=== PATIENT | female | born 1960 | race Hispanic/Latino ===

== ENCOUNTER 2016-07-20 06:10 | Outpatient (CLI) | payer BC ==
--- NOTE | 2016-07-20 08:53 | Mammography Report ---
BILATERAL MAMMOGRAM: FINDINGS: The breast tissue is heterogeneously dense, which could obscure detection of small masses (approximately 50%-75% glandular). No mass, distortion, suspicious calcification, or skin change is seen. No interval changes compared to prior study in December 2012. CAD was utilized. IMPRESSION: Negative mammogram. There is no mammographic evidence of malignancy. RECOMMENDATION: Follow-up per ACS guidelines. BI-RADS CATEGORY: 1 = Negative ACR BI-RADS MAMMOGRAPHIC CODES: 0 = Needs additional imaging evaluation; 1 = Negative; 2 = Benign; 3 = Probably benign; 4 = Suspicious; 5 = Malignant; 6 = Known biopsy-proven malignancy COMMENT: 1. Dense breast tissue, i.e., adenosis, fibrocystic changes, etc., may obscure an underlying neoplasm. 2. Approximately 10% of cancers are not detected with mammography. 3. A negative mammography report should not delay biopsy if a clinically suspicious mass is present. COMMENT: Patient follow-up letters are generated in [employer].
== END 2016-07-20 06:11 | disposition home or self-care (01) ==
LOC: MAMMO 06:10
PROVIDERS: ATTEND Family Medicine
DX: Z12.31 Encounter for screening mammogram for malignant neoplasm of breast (principal)
CPT/HCPCS: 77067; G0202

== ENCOUNTER 2017-10-26 06:12 | Emergency (ER) | payer OTHER, BC ==
[2017-10-26] MEDS ORDERED: MOTRIN ONE (06:26)
[2017-10-26] MEDS: MOTRIN PO ONE (06:35)
[2017-10-26 06:36] VITALS: BP 166/77
--- NOTE | 2017-10-26 07:12 | XRay Report ---
FINAL REPORT EXAM: XR KNEE 3V LT HISTORY: pain patellar area, swollen, fall, twisting injury COMPARISONS: None. FINDINGS: Three portable views left knee Inferior patellar pole fracture is distracted approximately 2-3 millimeters. Associated lipohemarthrosis. The distal femur, proximal tibia and fibula appear intact. IMPRESSION: Minimally distracted mid to lower patellar fracture with associated joint effusion/likely lipohemarthrosis.
--- NOTE | 2017-10-26 07:40 | Emergency Department Report ---
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 She reports that she slipped with her legs going forward out from under her, and that her left knee twisted with immediate pain, primarily anteriorly around the area of the patella. She has relatively little pain on the sides of the knee, but she is unable to stand or walk. Discomfort is significant, being in 7-8 out of 10, localized to the knee, worse with any attempted movement, reports that she is unable to fully extend or flex the knee , with significant pain on any attempt at movement. There is no radiation of discomfort. She has no loss of use, no weakness, no numbness in the left leg distal to the area of injury, no hip pain. She has a minor contusion on her right alcantara, but this is painless, and she could bear weight on her right leg well, but she has no other injury, she did not strike her head, there was no loss of consciousness, and she is in good general health otherwise. Severity scale (0 -10): 3 - Related Data Previous Rx's Medication Instructions Recorded Last Taken Type HYDROcodone/APAP 7.5-325 [[place] 1 each PO Q6HR PRN #30 tablet 10/26/17 Unknown Rx 7.5/325] Allergies Allergy/AdvReac Type Severity Reaction Status Date / Time No Known Allergies Allergy Verified 10/26/17 06:30 ED Review of Systems ROS: Stated complaint: FALL Other details as noted in HPI Comment: All other systems reviewed and negative Constitutional: no symptoms reported ENT: denies: ear pain, throat pain Respiratory: denies: cough, shortness of breath, wheezing Cardiovascular: denies: chest pain, palpitations Endocrine: no symptoms reported Gastrointestinal: denies: abdominal pain, nausea, diarrhea Musculoskeletal: as per HPI, joint swelling (left knee) Neurological: denies: headache, weakness, paresthesias Psychiatric: denies: anxiety, depression ED Past Medical Hx - Past Medical History Previous Medical History?: Yes Hx Diabetes: Yes Additional medical history: High cholesterol, Mitral valve prolapse - Surgical History Past Surgical History?: Yes Hx Cholecystectomy: Yes Additional Surgical History: Rt heel - Social History Smoking Status: Never Smoker Substance Use Type: Prescribed - Medications Home Medications: Home Medications Medication Instructions Recorded Confirmed Last Taken Type HYDROcodone/APAP 7.5-325 [[place] 1 each PO Q6HR PRN #30 tablet 10/26/17 Unknown Rx 7.5/325] ED Physical Exam - General Limitations: No Limitations General appearance: alert, in distress (moderate acute discomfort from area of injury of left knee) - Head Head exam: Present: atraumatic, normocephalic - Eye Eye exam: Present: PERRL, EOMI - ENT ENT exam: Present: mucous membranes moist - Neck Neck exam: Present: normal inspection, full ROM. Absent: tenderness - Respiratory Respiratory exam: Present: normal lung sounds bilaterally - Cardiovascular Cardiovascular Exam: Present: regular rate - GI/Abdominal GI/Abdominal exam: Present: soft, normal bowel sounds. Absent: tenderness - Rectal Rectal exam: Present: deferred - Extremities Exam Extremities exam: Present: tenderness (anterior, overlying patella area and a little inferiorly, no tenderness to femur or leg), joint swelling (left knee, anteriorly). Absent: calf tenderness - Back Exam Back exam: Present: normal inspection. Absent: tenderness - Neurological Exam Neurological exam: Present: alert, oriented X3, CN II-XII intact. Absent: motor sensory deficit - Psychiatric Psychiatric exam: Present: normal affect, normal mood - Skin Skin exam: Present: warm, dry, intact, other (minimal contusion distal right pretibial area, no abrasion,) ED Course Vital Signs 10/26/17 10/26/17 06:18 06:35 Temperature 36.4 C L Pulse Rate 94 H Respiratory 18 16 Rate Blood Pressure 166/77 O2 Sat by Pulse 100 Oximetry ED Medical Decision Making - Radiology Data Radiology results: report reviewed Patient has minimally displaced, 3 mm, fracture of distal pole of left patella, with no other injury of present. - Medical Decision Making Patient has a patella fracture, primarily as a distracting force, it is minimally displaced, she is stable for discharge home, but will be unable to work as she is not able to bear weight without discomfort. She will be given 1 week work release, with recognition for follow-up with orthopedist, placed in knee immobilizer, provided crutches, and will be given hydrocodone for pain with elevation instructions and icing. - Differential Diagnosis knee fracture, patella fracture, collateral ligament injury, Critical care attestation.: If time is entered above; I have spent that time in minutes in the direct care of this critically ill patient, excluding procedure time. ED Disposition Clinical Impression: Left patella fracture Qualifiers: Encounter type: initial encounter Fracture type: closed Fracture morphology: transverse Fracture alignment: displaced Qualified Code(s): S82.032A - Displaced transverse fracture of left patella, initial encounter for closed fracture Disposition: TO HOME OR SELFCARE Is pt being admited?: No Does the pt Need Aspirin: No Condition: Stable Instructions: Patellar Fracture (ED), Knee Immobilizer (ED), Crutch Instructions (ED) Prescriptions: HYDROcodone/APAP 7.5-325 [[place] 7.5/325] 1 each PO Q6HR PRN #30 tablet PRN Reason: Pain Referrals: SARAH AVELAR MD [Primary Care Provider] - 3-5 Days COSMO WHITFIELD MD [Staff Physician] - 3-5 Days Forms: Work/School Release Form(ED) Time of Disposition: 07:43
[2017-10-26] MEDS: NORCO 10/325 PO ONE (08:00)
== END 2017-10-26 08:30 | disposition home or self-care (01) ==
LOC: ED 06:12
DX: S82.032A Displaced transverse fracture of left patella, initial encounter for closed fracture (principal); E11.9 Type 2 diabetes mellitus without complications; E78.00 Pure hypercholesterolemia, unspecified; X50.9XXA Other and unspecified overexertion or strenuous movements or postures, initial encounter; Y93.89 Activity, other specified; Y92.89 Other specified places as the place of occurrence of the external cause; Y99.8 Other external cause status

== ENCOUNTER 2018-05-03 01:20 | Outpatient (CLI) | payer BC, OTHER ==
[2018-05-03 08:00] LABS: Basophils # (Auto) 0.1 K/mm3 (0.0-0.1); Basophils % (Auto) 0.5 % (0.0-1.8); Eosinophils # (Auto) 0.2 K/mm3 (0.0-0.4); Eosinophils % (Auto) 1.3 % (0.0-4.3); Hematocrit 37.1 % (30.3-42.9); Hemoglobin 12.1 gm/dl (10.1-14.3); Lymphocytes # (Auto) 2.9 K/mm3 (1.2-5.4); Lymphocytes % (Auto) 24.8 % (13.4-35.0); Mean Corpuscular HGB Conc 33 % (30-34); Mean Corpuscular Volume 81 fl (79-97); Monocytes # (Auto) 0.7 K/mm3 (0.0-0.8); Monocytes % (Auto) 6.4 % (0.0-7.3); Platelet Count 444 K/mm3 (140-440); Red Blood Count 4.56 M/mm3 (3.65-5.03); Red Cell Distribution Width 15.4 % (13.2-15.2)
[2018-05-03 08:14] LABS: Bilirubin,Urine NEG (Negative); Blood,Urine SM (Negative); Color,Urine Straw (Yellow); Protein,Urine <15 mg/dL mg/dL (Negative); Urobilinogen,Urine < 2.0 mg/dL (<2.0)
[2018-05-03 09:07] LABS: Alanine Aminotransferase 46 units/L (7-56); Albumin 4.4 g/dL (3.9-5); BUN/Creatinine Ratio 23; Blood Urea Nitrogen 14 mg/dL (7-17); Calcium 9.5 mg/dL (8.4-10.2); Chol/HDL Ratio 3.54 %; HDL Cholesterol 44 mg/dL (40-59); Hemolysis Index 0; LDL Cholesterol,Direct 110 mg/dL (50-130)
--- NOTE | 2018-05-03 15:33 | Mammography Report ---
BILATERAL DIGITAL SCREENING MAMMOGRAM with CAD: 05/03/18 01:20:00 CLINICAL: Routine screening. COMPARISON:07/20/16 FINDINGS: The breasts are heterogeneously dense, which may obscure small masses. No mass, architectural distortion or suspicious calcifications. IMPRESSION: No mammographic evidence of malignancy. BI-RADS CATEGORY: 1 - - Negative RECOMMENDATION: Routine mammographic screening in one year. COMMENT: Patient follow-up letters are generated by our [employer] application.
== END 2018-05-03 01:21 | disposition home or self-care (01) ==
LOC: LAB 01:20
PROVIDERS: ATTEND Family Medicine
DX: Z12.31 Encounter for screening mammogram for malignant neoplasm of breast (principal); I10 Essential (primary) hypertension; E11.9 Type 2 diabetes mellitus without complications; Z79.899 Other long term (current) drug therapy; Z79.84 Long term (current) use of oral hypoglycemic drugs; Z90.49 Acquired absence of other specified parts of digestive tract; Z90.710 Acquired absence of both cervix and uterus
CPT/HCPCS: 36415; 77067; 80053; 80061; 81001; 82043; 84443; 85025

== ENCOUNTER 2018-11-08 07:44 | Outpatient (CLI) | payer BC ==
[2018-11-08 08:13] LABS: Alanine Aminotransferase 23 units/L (7-56); Albumin 4.2 g/dL (3.9-5); BUN/Creatinine Ratio 29; Blood Urea Nitrogen 20 mg/dL (7-17); Calcium 9.1 mg/dL (8.4-10.2); Chol/HDL Ratio 3.77 %; HDL Cholesterol 49 mg/dL (40-59); Hemolysis Index 0; LDL Cholesterol,Direct 132 mg/dL (50-130)
== END 2018-11-08 07:45 | disposition home or self-care (01) ==
LOC: LAB 07:44
PROVIDERS: ATTEND Family Medicine
DX: E11.9 Type 2 diabetes mellitus without complications (principal); I10 Essential (primary) hypertension; R53.83 Other fatigue; Z79.899 Other long term (current) drug therapy; Z90.710 Acquired absence of both cervix and uterus
CPT/HCPCS: 36415; 80053; 80061; 83036

== ENCOUNTER 2019-12-12 07:10 | Outpatient (CLI) | payer BC ==
[2019-12-12 08:07] LABS: Basophils # (Auto) 0.1 K/mm3 (0.0-0.1); Eosinophils # (Auto) 0.2 K/mm3 (0.0-0.4); Eosinophils % (Auto) 2.1 % (0.0-4.3); Hematocrit 20.5 % (30.3-42.9); Lymphocytes # (Auto) 2.3 K/mm3 (1.2-5.4); Lymphocytes % (Auto) 20.8 % (13.4-35.0); Mean Corpuscular HGB Conc 29 % (30-34); Mean Corpuscular Volume 57 fl (79-97); Monocytes % (Auto) 9.4 % (0.0-7.3); Platelet Count 637 K/mm3 (140-440); Red Blood Count 3.59 M/mm3 (3.65-5.03)
[2019-12-12 08:19] LABS: Alanine Aminotransferase 18 units/L (7-56); Albumin 4.7 g/dL (3.9-5); Blood Urea Nitrogen 12 mg/dL (7-17); Calcium 9.4 mg/dL (8.4-10.2); Chol/HDL Ratio 3.95 %; HDL Cholesterol 46 mg/dL (40-59); Hemolysis Index 0; LDL Cholesterol,Direct 125 mg/dL (50-130)
[2019-12-12 08:23] LABS: Bilirubin,Urine NEG (Negative); Blood,Urine NEG (Negative); Color,Urine Straw (Yellow); Protein,Urine <15 mg/dL mg/dL (Negative); Urobilinogen,Urine < 2.0 mg/dL (<2.0); WBC,Urine < 1.0 /HPF (0.0-6.0)
[2019-12-12 08:32] LABS: BUN/Creatinine Ratio 20
[2019-12-12 08:45] LABS: Creatinine,Urine 65.2 mg/dL (0.1-20.0)
[2019-12-12 13:48] LABS: Microalbumin/Creatinine Ratio 18.4 ug/mg
== END 2019-12-12 07:11 | disposition home or self-care (01) ==
LOC: LAB 07:10
PROVIDERS: ATTEND Family Medicine
DX: I10 Essential (primary) hypertension (principal); E11.9 Type 2 diabetes mellitus without complications; Z79.899 Other long term (current) drug therapy
CPT/HCPCS: 36415; 80053; 80061; 81001; 82043; 83036; 84436; 84443; 85025

== ENCOUNTER 2020-01-16 05:38 | Inpatient (IN) | payer BC ==
--- NOTE | 2020-01-16 06:06 | Cat Scan Report ---
CT head/brain wo con INDICATION: Stroke symptoms. TECHNIQUE: Routine CT head without contrast. All CT scans at this location are performed using CT dos e reduction for ALARA by means of automated exposure control. COMPARISON: None. FINDINGS: BRAIN / INTRACRANIAL CONTENTS: No acute hemorrhage, mass effect, midline shift, or hydrocephalus. No appreciable acute large territorial or lacunar infarct. No chronic infarct or focal atrophy. Normal b rain volume and ventricular/sulcal size for age. ORBITS: No significant abnormality of visualized orbits. SINUSES / MASTOIDS: No significant abnormality of visualized sinuses and mastoid air cells. ADDITIONAL FINDINGS: None. IMPRESSION: 1. No appreciable acute infarct. CODE STROKE: Time of Communication (REGIONAL SALES TRAINER/CDT): 5:01 AM Licensed Practitioner Receiving Report: Schulz Signer Name: Uriel Coombs MD Signed: 01/16/2020 6:02 AM Workstation Name: [id number]: turn off the lights
--- NOTE | 2020-01-16 06:17 | Emergency Department Report ---
Blank Doc - Documentation Documentation: [facility] Date of Service: 01/16/2020 05:40:06 Impression: Rule Out Acute Ischemic Stroke Comments/Sign-Out: The patient was last normal close to 20 minutes prior, to . She had possible GI bleeding with large hgb drop she states, was on aspirin taken off in the last week. Currently she is being worked up for possible GI bleeding. Consultation to GI would be prudent at this point.Patient was given option for alteplase, but there is a perceived increased risk. she had dark stool throughout the week. She myself, and the physician agree to no alteplase. Mechanism of Stroke: Possible Thromboembolic Metrics: Last Known Well: 01/16/2020 05:46:45 [facility] Notification Time: 01/16/2020 05:39:39 Arrival Time: 01/16/2020 05:30:00 Stamp Time: 01/16/2020 05:40:06 Time First Login Attempt: 01/16/2020 05:46:08 Video Start Time: 01/16/2020 05:46:08 Symptoms: retropulsion to the left with left droop NIHSS Start Assessment Time: 01/16/2020 05:47:48 Patient is not a candidate for Alteplase/Activase. Patient was not deemed candidate for Alteplase/Activase thrombolytics because of Patient was offered alteplase. she does decline in this case given history of possible GI bleeding. Dr. Ayala was speaking is in agreement .. Weight Noted by Staff: 68.1 kg Video End Time: 01/16/2020 05:59:23 CT head showed no acute hemorrhage or acute core infarct. Clinical Presentation is Suggestive of Large Vessel Occlusive Disease, Recommendations are as Follows Reviewed, No Indication of Large Vessel Occlusive Thrombus, Patient is not an KEIKO Candidate. ED Physician notified of diagnostic impression and management plan on 01/16/2020 05:59:23 Our recommendations are outlined below. Recommendations: Activate Stroke Protocol Admission/Order Set Stroke/Telemetry Floor Neuro Checks Bedside Swallow Eval DVT Prophylaxis IV Fluids, Normal Saline Head of Bed 30 Degrees Euglycemia and Avoid Hyperthermia (PRN Acetaminophen) Hold Antithrombotics for Now Sign Out: Discussed with Emergency Department Provider History of Present Illness: Patient is a 60 year old Female. Patient was brought by private transportation with symptoms of retropulsion to the left with left droop Patient with history of dm, and mitral valve prolapse, and she is on a statin, and she has recently lost weight purposefully. 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 The paitent had gotten sick last week, and had sinuses. She was taking alkacelzer plus with asa. Last week her hemaglobin went down because there is suspected GI bleeding over the last week. Past Medical History: Diabetes Mellitus Hyperlipidemia Coronary Artery Disease There is NO history of Hypertension There is NO history of Atrial Fibrillation There is NO history of Stroke Anticoagulant use: No Antiplatelet use: No Examination: BP(171/98), Pulse(98), Blood Glucose(131) 1A: Level of Consciousness - Alert; keenly responsive + 0 1B: Ask Month and Age - Both Questions Right + 0 1C: Blink Eyes & Squeeze Hands - Performs Both Tasks + 0 2: Test Horizontal Extraocular Movements - Normal + 0 3: Test Visual Weston - No Visual Loss + 0 4: Test Facial Palsy (Use Grimace if Obtunded) - Normal symmetry + 0 5A: Test Left Arm Motor Drift - Drift, but doesn't hit bed + 1 5B: Test Right Arm Motor Drift - No Drift for 10 Seconds + 0 6A: Test Left Leg Motor Drift - Drift, but doesn't hit bed + 1 6B: Test Right Leg Motor Drift - No Drift for 5 Seconds + 0 7: Test Limb Ataxia (FNF/Heel-Noland) - No Ataxia + 0 8: Test Sensation - Normal; No sensory loss + 0 9: Test Language/Aphasia - Normal; No aphasia + 0 10: Test Dysarthria - Normal + 0 11: Test Extinction/Inattention - No abnormality + 0 NIHSS Score: 2 Patient/Family was informed the Neurology Consult would happen via TeleHealth consult by way of interactive audio and video telecommunications and consented to receiving care in this manner. Due to the immediate potential for life-threatening deterioration due to underlying acute neurologic illness, I spent 45 minutes providing critical care. This time includes time for face to face visit via telemedicine, review of medical records, imaging studies and discussion of findings with providers, the patient and/or family. Dr Miles Thompson [facility] Case [id number]
[2020-01-16] MEDS ORDERED: SODIUM CHLORIDE 0.9% 1000 ML 1,000 ML IV ONE (06:36)
[2020-01-16] MEDS ORDERED: SODIUM CHLORIDE 0.9% 1000 ML 1,000 ML ONE (06:38)
[2020-01-16 06:44] LABS: Basophils # (Auto) 0.2 K/mm3 (0.0-0.1); Basophils % (Auto) 1.4 % (0.0-1.8); Eosinophils # (Auto) 0.2 K/mm3 (0.0-0.4); Lymphocytes # (Auto) 3.5 K/mm3 (1.2-5.4); Lymphocytes % (Auto) 22.7 % (13.4-35.0); Mean Corpuscular HGB Conc 30 % (30-34); Monocytes % (Auto) 6.5 % (0.0-7.3); Red Blood Count 3.04 M/mm3 (3.65-5.03)
[2020-01-16 06:46] LABS: Mean Corpuscular Volume 57 fl (79-97)
[2020-01-16 06:47] LABS: Platelet Count 659 K/mm3 (140-440); Red Cell Distribution Width 20.2 % (13.2-15.2)
[2020-01-16 06:49] LABS: Hematocrit 17.2 % (30.3-42.9); Hemoglobin 5.1 gm/dl (10.1-14.3)
[2020-01-16] MEDS ORDERED: SODIUM CHLORIDE 0.9% 500 ML 500 ML IV ONE ×3 (06:50→23:55)
--- NOTE | 2020-01-16 06:57 | Emergency Department Report ---
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 Patient approximately 30minutes prior to checking into the emergency department had an episode where she felt very weak fatigued and was having difficulty speaking. Patient also noted some numbness and weakness to the left upper and lower extremity. Patient approximately a week ago had some sinus issues and started taking Linette-Carmen. Patient then developed some diarrhea with some greenish stools. Patient saw her primary care physician who stated that her hemoglobin was low at 3 and did a guaiac which was pending to the patient. Patient was planning on seeing GI for presumed GI bleed secondary to the Linette-Carmen. Patient is denying any abdominal pain nausea vomiting. Patient at the episode of weakness tonight and checked in. At the time of my exam at 6:30 AM the patient is already been to CT. She states she is feeling some improvement. Her facial droop is resolved she states she is talking slightly better than she was. Patient also has some improvement of her weakness to her left upper and lower extremity. - Related Data Home Medications: Previous Rx's Medication Instructions Recorded Last Taken Type HYDROcodone/APAP 7.5-325 [[place] 1 each PO Q6HR PRN #30 tablet 10/26/17 Unknown Rx 7.5/325] Allergies/Adverse Reactions: Allergies Allergy/AdvReac Type Severity Reaction Status Date / Time No Known Allergies Allergy Verified 10/26/17 06:30 ED Review of Systems ROS: Stated complaint: STROKE Other details as noted in HPI Comment: All other systems reviewed and negative ED Past Medical Hx - Past Medical History Hx Diabetes: Yes Additional medical history: High cholesterol, Mitral valve prolapse - Surgical History Hx Cholecystectomy: Yes Additional Surgical History: Rt heel - Social History Smoking Status: Never Smoker Substance Use Type: Prescribed - Medications Home Medications: Home Medications Medication Instructions Recorded Confirmed Last Taken Type HYDROcodone/APAP 7.5-325 [[place] 1 each PO Q6HR PRN #30 tablet 10/26/17 Unknown Rx 7.5/325] ED Neuro Physical Exam - General Limitations: Other General appearance: alert, in no apparent distress Suspected Stroke: Yes - Head Head exam: Present: atraumatic, normocephalic - Eye Eye exam: Present: normal appearance - ENT ENT exam: Present: mucous membranes moist - Neck Neck exam: Present: normal inspection - Respiratory Respiratory exam: Present: normal lung sounds bilaterally. Absent: respiratory distress, wheezes, rales - Cardiovascular Cardiovascular Exam: Present: regular rate, normal rhythm, normal heart sounds. Absent: systolic murmur, diastolic murmur, rubs, gallop - GI/Abdominal GI/Abdominal exam: Present: soft, normal bowel sounds. Absent: distended, guarding, rebound - Rectal Rectal exam: Present: normal inspection, heme (-) stool. Absent: bloody stool (No gross blood) - Extremities Exam Extremities exam: Present: normal inspection - Back Exam Back exam: Present: normal inspection - Neurological Exam Neurological exam: Present: alert, oriented X3 - NIHSS Assessment Interval: Baseline 1a. Level of Consciousness: alert/keenly responsive 1b. LOC Questions: answers both correctly 1c. LOC Commands: performs tasks correctly 2. Best Gaze: normal 3. Visual: no visual loss 4. Facial Palsy: normal symmetrical movement 5b. Motor Arm Right: no drift 5a. Motor Arm Left: drift 6a. Motor Leg Left: drift 6b. Motor Leg Right: no drift 7. Limb Ataxia: absent 8. Sensory: normal 9. Best Language: mild/moderate aphasia 10. Dysarthria: normal 11. Extinction/Inattention: no abnormality Total Score: 3 Stroke Severity: Minor Stroke - Psychiatric Psychiatric exam: Present: normal affect, normal mood - Skin Skin exam: Present: warm, dry, intact, normal color. Absent: rash ED Course Vital Signs 01/16/20 01/16/20 01/16/20 05:40 05:57 06:00 Pulse Rate 101 H Respiratory 19 17 Rate Blood Pressure 175/76 Blood Pressure 175/89 [Left] O2 Sat by Pulse 98 98 98 Oximetry 01/16/20 01/16/20 06:31 06:56 Pulse Rate 103 H 99 H Respiratory 25 H 15 Rate Blood Pressure 179/86 Blood Pressure 162/87 [Left] O2 Sat by Pulse 97 99 Oximetry - Lab Data Result diagrams: 01/16/20 06:41 Lab Results 01/16/20 01/16/20 01/16/20 Range/Units 06:41 06:41 06:41 WBC 15.6 H (4.5-11.0) K/mm3 RBC 3.04 L (3.65-5.03) M/mm3 Hgb 5.1 L* (10.1-14.3) gm/dl Hct 17.2 L* (30.3-42.9) % MCV 57 L (79-97) fl MCH 17 L (28-32) pg MCHC 30 (30-34) % RDW 20.2 H (13.2-15.2) % Plt Count 659 H (140-440) K/mm3 Lymph % (Auto) 22.7 (13.4-35.0) % [place] % (Auto) 6.5 (0.0-7.3) % Eos % (Auto) 1.0 (0.0-4.3) % Baso % (Auto) 1.4 (0.0-1.8) % Lymph # (Auto) 3.5 (1.2-5.4) K/mm3 [place] # (Auto) 1.0 H (0.0-0.8) K/mm3 Eos # (Auto) 0.2 (0.0-0.4) K/mm3 Baso # (Auto) 0.2 H (0.0-0.1) K/mm3 Seg Neutrophils % 68.4 (40.0-70.0) % Seg Neutrophils # 10.7 H (1.8-7.7) K/mm3 PT 14.2 (12.2-14.9) Sec. INR 1.09 (0.87-1.13) APTT 28.1 (24.2-36.6) Sec. Thrombin Time 19.9 H (15.1-19.6) Sec. Total Creatine Kinase 23 L (30-135) units/L CK-MB (CK-2) < 1.0 (0.0-4.0) ng/mL CK-MB (CK-2) Rel Index 4.3 H (0-4) Troponin T < 0.010 (0.00-0.029) ng/mL Crossmatch 01/16/20 Range/Units 06:55 WBC (4.5-11.0) K/mm3 RBC (3.65-5.03) M/mm3 Hgb (10.1-14.3) gm/dl Hct (30.3-42.9) % MCV (79-97) fl MCH (28-32) pg MCHC (30-34) % RDW (13.2-15.2) % Plt Count (140-440) K/mm3 Lymph % (Auto) (13.4-35.0) % [place] % (Auto) (0.0-7.3) % Eos % (Auto) (0.0-4.3) % Baso % (Auto) (0.0-1.8) % Lymph # (Auto) (1.2-5.4) K/mm3 [place] # (Auto) (0.0-0.8) K/mm3 Eos # (Auto) (0.0-0.4) K/mm3 Baso # (Auto) (0.0-0.1) K/mm3 Seg Neutrophils % (40.0-70.0) % Seg Neutrophils # (1.8-7.7) K/mm3 PT (12.2-14.9) Sec. INR (0.87-1.13) APTT (24.2-36.6) Sec. Thrombin Time (15.1-19.6) Sec. Total Creatine Kinase (30-135) units/L CK-MB (CK-2) (0.0-4.0) ng/mL CK-MB (CK-2) Rel Index (0-4) Troponin T (0.00-0.029) ng/mL Crossmatch See Detail - EKG Data -: EKG Interpreted by Oh EKG shows normal: sinus rhythm, axis, intervals, QRS complexes, ST-T waves Rate: tachycardia Interpretation: normal EKG (Except for slight tachycardia 102. Time of interpretation 0630) - Radiology Data [facility] [address] [place] [address] Cat Scan Report Signed Patient: JUAN JOSE OTTO MR#: [id number] : 1960 Acct:[id number] Age/Sex: 60 / F ADM Date: 01/16/20 Loc: ED Attending Dr: Ordering Physician: ENDER SCHULZ MD Date of Service: 01/16/20 Procedure(s): CT head/brain wo con Accession Number(s): [id number] cc: ENDER SCHULZ MD CT head/brain wo con INDICATION: Stroke symptoms. TECHNIQUE: Routine CT head without contrast. All CT scans at this location are performed using CT dose reduction for ALARA by means of automated exposure control. COMPARISON: None. FINDINGS: BRAIN / INTRACRANIAL CONTENTS: No acute hemorrhage, mass effect, midline shift, or hydrocephalus. No appreciable acute large territorial or lacunar infarct. No chronic infarct or focal atrophy. Normal brain volume and ventricular/sulcal size for age. ORBITS: No significant abnormality of visualized orbits. SINUSES / MASTOIDS: No significant abnormality of visualized sinuses and mastoid air cells. ADDITIONAL FINDINGS: None. IMPRESSION: 1. No appreciable acute infarct. CODE STROKE: Time of Communication (AUTO PARKER/CDT): 5:01 AM Licensed Practitioner Receiving Report: Schulz Signer Name: Uriel Coombs MD Signed: 01/16/2020 6:02 AM Workstation Name: [email or web address] CTA HEAD AND NECK WITH CONTRAST 01/16/2020 HISTORY: Facial weakness COMPARISON: None. TECHNIQUE: All CT scans at this location are performed using CT dose reduction for ALARA by means of automated exposure control.. 3-D/MIP reformats postprocessed. Percentage virgilio nosis is determined by direct quantitative measurements of diseased internal carotid artery diamet er compared with normal distal internal carotid artery reference segments or by criteria similar to NASCET where applicable. CONTRAST: 100 ml of Isovue 370 FINDINGS: CTA HEAD: Intracranial vertebral arteries: No significant abnormality. Basilar artery: No significant abnormality. Posterior cerebral arteries: No significant abnormality. Intracranial internal carotid arteries: No significant abnormality. Anterior cerebral arteries: No significant abnormality. Middle cerebral arteries: No significant abnormality. Dural venous sinuses:Not optimally opacified. No significant abnormality. IMPRESSION: 1. No significant abnormality. Signer Name: Justo Drummond MD Signed: 01/16/2020 6:57 AM Workstation Name: [email or web address] CTA NECK WITH CONTRAST 01/16/2020 INDICATION / CLINICAL INFORMATION: Post-CODE STROKE PROTOCOL, stroke-like symptoms. Facial droop.. COMPARISON: None. TECHNIQUE: Routine CTA of the neck is performed. 3-D/MIP reformats were postprocessed. Percentage stenosis is determined by direct quantitative measurements of diseased internal carotid artery diameter compared with normal distal internal carotid artery reference segments or by criteria similar to NASCET where applicable. All CT scans at this location are performed using CT dose reduction for ALARA by means of automated exposure control. CONTRAST: 100 ml of Isovue 370 FINDINGS: Carotid bifurcations: No evidence of carotid bifurcation stenosis. Carotid arteries: No significant abnormality. Cervical vertebral arteries: No significant abnormality. Aortic arch: No significant abnormality. Incidental note is made of a 2.6 cm right thyroid nodule. IMPRESSION: No significant vascular abnormality. INCIDENTAL THYROID NODULE RECOMMENDATIONS Nonpalpable nodules detected on US or other anatomic imaging studies are termed incidentally discovered nodules or incidentalomas. Nonpalpable nodules have the same risk of malignancy as palpable nodules with the same size. Generally, only nodules >1 cm should be evaluated, since they have a greater potential to be clinically significant cancers. (ALEXIA, 2009). Follow up for incidental thyroid nodules <1 cm is not recommended. In patients <35 years with an incidental thyroid nodule detected on CT, MRI, or extrathyroidal ultrasound, dedicated thyroid ultrasound is recommended if the nodule is 1 cm, has no suspicious imaging features, and if the patient has normal life expectancy. In patients 35 years with an incidental thyroid nodule detected on CT, MRI, or extrathyroidal ultrasound, dedicated thyroid ultrasound is recommended if the nodule is 1.5 cm, has no suspicious imaging features, and if the patient has normal life expectancy. Signer Name: Justo Drummond MD Signed: 01/16/2020 6:54 AM Workstation Name: [email or web address] - Medical Decision Making Patient is a 60-year-old female who is presenting with weakness left- sided deficit and some slurred speech which is now resolved. This is after being diagnosed with anemia with a hemoglobin of 3. Patient states she was not transfused but was started on iron therapy. Patient is guaiac negative at this time and likely had some bleeding which is resolved. Patient's hemoglobin is 5 which is still inadequate. Patient likely had a TIA secondary to exertion and not having enough hemoglobin to adequately perfuse her brain. Patient will be admitted to hospitalist service. Critical Care Time: Yes (30) Critical care attestation.: If time is entered above; I have spent that time in minutes in the direct care of this critically ill patient, excluding procedure time. ED Disposition Clinical Impression: TIA (transient ischemic attack), Symptomatic anemia, Hypertensive urgency, malignant Disposition: DC-09 OP ADMIT IP TO THIS HOSP Is pt being admited?: Yes Does the pt Need Aspirin: No Condition: Stable Time of Disposition: 07:51
[2020-01-16 06:58] LABS: INR 1.09 (0.87-1.13); Partial Thromboplastin Time 28.1 Sec. (24.2-36.6)
--- NOTE | 2020-01-16 06:59 | Cat Scan Report ---
CTA NECK WITH CONTRAST 01/16/2020 INDICATION / CLINICAL INFORMATION: Post-CODE STROKE PROTOCOL, stroke-like symptoms. Facial droop.. COMPARISON: None. TECHNIQUE: Routine CTA of the neck is performed. 3-D/MIP reformats were postprocessed. Percentage st enosis is determined by direct quantitative measurements of diseased internal carotid artery diameter compared with normal distal internal carotid artery reference segments or by criteria similar to JUDITH CET where applicable. All CT scans at this location are performed using CT dose reduction for ALARA b y means of automated exposure control. CONTRAST: 100 ml of Isovue 370 FINDINGS: Carotid bifurcations: No evidence of carotid bifurcation stenosis. Carotid arteries: No significant abnormality. Cervical vertebral arteries: No significant abnormality. Aortic arch: No significant abnormality. Incidental note is made of a 2.6 cm right thyroid nodule. IMPRESSION: No significant vascular abnormality. INCIDENTAL THYROID NODULE RECOMMENDATIONS Nonpalpable nodules detected on US or other anatomic imaging studies are termed incidentally discover ed nodules or incidentalomas. Nonpalpable nodules have the same risk of malignancy as palpable nodule s with the same size. Generally, only nodules >1 cm should be evaluated, since they have a greater po tential to be clinically significant cancers. (ALEXIA, 2009). Follow up for incidental thyroid nodules <1 cm is not recommended. In patients <35 years with an incidental thyroid nodule detected on CT, MRI, or extrathyroidal ultras ound, dedicated thyroid ultrasound is recommended if the nodule is 1 cm, has no suspicious imaging fe atures, and if the patient has normal life expectancy. In patients 35 years with an incidental thyroid nodule detected on CT, MRI, or extrathyroidal ultraso und, dedicated thyroid ultrasound is recommended if the nodule is 1.5 cm, has no suspicious imaging f eatures, and if the patient has normal life expectancy. Signer Name: Justo Drummond MD Signed: 01/16/2020 6:54 AM Workstation Name: [id number]
--- NOTE | 2020-01-16 07:01 | Cat Scan Report ---
CTA HEAD AND NECK WITH CONTRAST 01/16/2020 HISTORY: Facial weakness COMPARISON: None. TECHNIQUE: All CT scans at this location are performed using CT dose reduction for ALARA by means of automated exposure control.. 3-D/MIP reformats postprocessed. Percentage stenosis is determined by d irect quantitative measurements of diseased internal carotid artery diameter compared with normal dis silverio internal carotid artery reference segments or by criteria similar to NASCET where applicable. CONTRAST: 100 ml of Isovue 370 FINDINGS: CTA HEAD: Intracranial vertebral arteries: No significant abnormality. Basilar artery: No significant abnormality. Posterior cerebral arteries: No significant abnormality. Intracranial internal carotid arteries: No significant abnormality. Anterior cerebral arteries: No significant abnormality. Middle cerebral arteries: No significant abnormality. Dural venous sinuses:Not optimally opacified. No significant abnormality. IMPRESSION: 1. No significant abnormality. Signer Name: Justo Drummond MD Signed: 01/16/2020 6:57 AM Workstation Name: [id number]
[2020-01-16 07:14] LABS: Thrombin Time 19.9 Sec. (15.1-19.6)
[2020-01-16 07:20] LABS: Creatine Kinase MB < 1.0 ng/mL (0.0-4.0)
[2020-01-16 08:18] LABS: Blood Urea Nitrogen 10 mg/dL (7-17); Calcium 8.7 mg/dL (8.4-10.2); Hemolysis Index 4
[2020-01-16 08:37] LABS: BUN/Creatinine Ratio 17
--- NOTE | 2020-01-16 08:58 | History and Physical Report ---
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 Patient approximately 30minutes prior to checking into the emergency department she had an episode where she felt very weak fatigued and was having difficulty speaking with some numbness and weakness to the left upper and lower extremity. Patient stated that approximately a week ago she developed a congested nose/sinus and started taking Linette-Bridger. Patient then developed some diarrhea with some greenish stools. Patient saw her primary care physician then who stated that her hemoglobin was low at 3 and did a guaiac test which was negative. Patient was planning on seeing GI for presumed GI bleed secondary to the Linette-Bridger. Early this morning while she was at work she developed left- sided weakness difficulty in speech. By the time she was presented to the ER and CT scan was done she started to feel some improvement, her facial droop is resolved and so does her left-sided weakness. Laboratory work-up showed severe anemia with hemoglobin of 5.1. CT CTA of head and neck showed no acute process. Patient was ordered for blood transfusion in the ER. Because of her severe anemia with her resolving symptoms and normal CT CTA findings patient does not qualify for tPA. Patient being admitted for stroke work-up and further management for severe anemia. Review of System: Constitutional: no fever, no chills, no weight loss Ears, eyes, nose, mouth and throat: no nasal congestion, no nasal discharge, no sinus pressure, no vision change, no red eye. Neck: No neck pain or rigidity. Cardiovascular: No chest pain, no orthopnea, no palpitations, no leg swelling Respiratory: No shortness of breath, no cough, no congestion, no wheezing Gastrointestinal: no abdominal pain, no nausea, no vomiting Genitourinary : no dysuria, no hematuria Musculoskeletal: no joint swelling or muscle ache Integumentary: no rash, no pruritis Neurological: no parathesias, + numbness around her left side of lip, no tingling, no weakness Endocrine: no cold or heat intolerance, no polyuria or polydipsia Hematologic/Lymphatic: no easy bruising, no easy bleeding, no gland swelling Allergic/Immunologic: no urticaria, no angioedema. Past History Past Medical History: diabetes, hyperlipidemia, other (Mitral valve prolapse, chronic anemia) Past Surgical History: cholecystectomy, Other (Right ankle surgery) Social history: denies: smoking, alcohol abuse Family history: CAD Medications and Allergies Allergies Allergy/AdvReac Type Severity Reaction Status Date / Time No Known Allergies Allergy Verified 10/26/17 06:30 Home Medications Medication Instructions Recorded Confirmed Last Taken Type Metformin HCl [Metformin HCl ER] 750 mg PO QDAY 01/16/20 01/16/20 Unknown History Omeprazole 40 mg PO QDAY 01/16/20 01/16/20 Unknown History Simvastatin 10 mg PO QHS 01/16/20 01/16/20 Unknown History Venlafaxine HCl [Effexor Xr] 37.5 mg PO QDAY 01/16/20 01/16/20 Unknown History atenoloL [Tenormin] 25 mg PO DAILY 01/16/20 01/16/20 Unknown History Active Meds: Active Medications Aspirin (Halfprin Ec) 81 mg PO QDAY [facility] Atorvastatin Calcium (Lipitor) 40 mg PO QHS [facility] Insulin Human Regular (Humulin R) 0 unit SUB-Q ACHS [facility]; Protocol Miscellaneous Medication (Venlafaxine Hcl [Effexor Xr]) 37.5 mg PO QDAY [facility] Miscellaneous Medication (Omeprazole [Omeprazole]) 40 mg PO QDAY [facility] Exam - Physical Exam Narrative exam: GENERAL: well-developed and well-nourished lying on bed appeared to be in no discomfort. HEENT: Normocephalic. Atraumatic. No conjunctival congestion or icterus. Patient has moist mucous membranes. NECK: Supple. Trachea midline. CHEST/LUNGS: Clear to auscultated bilaterally, breathing nonlabored. No wheezes crackles or rhonchi. HEART/CARDIOVASCULAR: Regular in rate and rhythm. S1 and S2 positive. ABDOMEN: Abdomen is soft, nontender. Patient has normal bowel sounds. SKIN: There is no rash. Warm and dry. NEURO: No focal motor deficit. Follows command. MUSCULOSKELETAL: No joint effusion or tenderness. EXTRIMITY: No edema, no cyanosis or clubbing. PSYCH: Cooperative. - Constitutional Vitals: Temp Pulse Resp BP Pulse Ox 101 H 22 131/74 97 01/16/20 08:30 01/16/20 08:30 01/16/20 08:30 01/16/20 08:30 HEART Score - HEART Score Troponin: Troponin T < 0.010 ng/mL (0.00-0.029) 01/16/20 06:41 Results - Labs CBC & Chem 7: 01/18/20 07:05 01/18/20 07:05 Labs: Abnormal lab results 01/16/20 01/16/20 01/16/20 Range/Units 06:41 06:41 06:41 WBC 15.6 H (4.5-11.0) K/mm3 RBC 3.04 L (3.65-5.03) M/mm3 Hgb 5.1 L* (10.1-14.3) gm/dl Hct 17.2 L* (30.3-42.9) % MCV 57 L (79-97) fl MCH 17 L (28-32) pg RDW 20.2 H (13.2-15.2) % Plt Count 659 H (140-440) K/mm3 [place] # (Auto) 1.0 H (0.0-0.8) K/mm3 Baso # (Auto) 0.2 H (0.0-0.1) K/mm3 Seg Neutrophils # 10.7 H (1.8-7.7) K/mm3 Thrombin Time 19.9 H (15.1-19.6) Sec. Sodium (137-145) mmol/L Potassium (3.6-5.0) mmol/L Chloride (98-107) mmol/L Glucose (65-100) mg/dL Total Creatine Kinase 23 L (30-135) units/L CK-MB (CK-2) Rel Index 4.3 H (0-4) Crossmatch 01/16/20 01/16/20 Range/Units 06:41 06:55 WBC (4.5-11.0) K/mm3 RBC (3.65-5.03) M/mm3 Hgb (10.1-14.3) gm/dl Hct (30.3-42.9) % MCV (79-97) fl MCH (28-32) pg RDW (13.2-15.2) % Plt Count (140-440) K/mm3 [place] # (Auto) (0.0-0.8) K/mm3 Baso # (Auto) (0.0-0.1) K/mm3 Seg Neutrophils # (1.8-7.7) K/mm3 Thrombin Time (15.1-19.6) Sec. Sodium 125 L (137-145) mmol/L Potassium 5.2 H (3.6-5.0) mmol/L Chloride 89.0 L (98-107) mmol/L Glucose 103 H (65-100) mg/dL Total Creatine Kinase (30-135) units/L CK-MB (CK-2) Rel Index (0-4) Crossmatch See Detail - Imaging and Cardiology CT Scan - head: report reviewed (No acute infract or bleeding or mass) Assessment and Plan Possible CVA -- We will admit the patient to remote telemetry - We'll place on statin, will consult neurology -Will not give aspirin for now as patient came with severe anemia -hemoglobin 5.1 - CT scan of the head obtained in the ER and shows no acute process - We will get MRI of the head, carotid Doppler, 2-D echocardiogram - We will also get hemoglobin A1c level and fasting lipid panel - Allow permissive hypertension, will hold BP meds if patient is taking any at home - Consult PTOT and speech therapist -Consistent carb diet if able to swallow, monitor blood glucose - Further management will be based on pending lab results and imaging studies - We'll place on GI prophylaxis to avoid stress ulcer Hyperkalemia, K 5.2 -monitor BMP - kayexalate as needed Hyponatremia, Na 125 - cont iv fluid Thrombocytosis, likely reactive -Platelets count today 659 -Continue to monitor CBC Symptomatic anemia -Hemoglobin 5.1 -Will transfuse, ordered stool for occult blood Diabetes mellitus type 2 -Consistent carb diet, check A1c, monitor blood glucose with QA CHS and SSI Leukocytosis, likely reactive -Patient is afebrile, will continue to monitor clinically Hyperlipidemia, continue statin Hypertension, will resume home meds if MRI brain is normal -Allow permissive hypertension for now, -Labetalol 10 mg IV every 4 hour if SBP greater than 180 -SCD for DVT prophylaxis
[2020-01-16] MEDS ORDERED: ASPIRIN EC 81 MG TAB PO SCH (10:00)
[2020-01-16] MEDS ORDERED: SODIUM CHLORIDE 0.9% 500 ML 500 ML ONE (10:40)
[2020-01-16 12:12] LABS: Iron 11 ug/dL (37-170); Total Iron Binding Capacity 415 mcg/dL (250-450)
[2020-01-16] MEDS: VENLAFAXINE 37.5 MG TAB PO SCH ×2 (19:07→21:26)
[2020-01-16] MEDS: PANTOPRAZOLE 40 MG TAB PO SCH ×2 (19:07→21:26)
[2020-01-16] MEDS: INSULIN REGULAR, HUMAN 100 UNIT/ML 3ML VIAL SUB-Q SCH ×2 (19:08→21:27)
[2020-01-16 19:30] LABS: Hematocrit 21.2 % (30.3-42.9); Hemoglobin 6.5 gm/dl (10.1-14.3)
[2020-01-16] MEDS: ZOLPIDEM 5 MG TAB PO PRN (21:26)
[2020-01-16] MEDS: SODIUM CHLORIDE 0.9% 1000 ML 1,000 ML IV SCH (21:26)
[2020-01-17 06:38] LABS: Basophils # (Auto) TNR K/mm3 (0.0-0.1); Basophils % (Auto) TNR % (0.0-1.8); Eosinophils # (Auto) TNR K/mm3 (0.0-0.4); Eosinophils % (Auto) TNR % (0.0-4.3); Hematocrit TNR % (30.3-42.9); Hemoglobin TNR gm/dl (10.1-14.3); Lymphocytes # (Auto) TNR K/mm3 (1.2-5.4); Lymphocytes % (Auto) TNR % (13.4-35.0); Mean Corpuscular HGB Conc TNR % (30-34); Monocytes # (Auto) TNR K/mm3 (0.0-0.8); Monocytes % (Auto) TNR % (0.0-7.3); Red Blood Count TNR M/mm3 (3.65-5.03)
[2020-01-17 06:39] LABS: Mean Corpuscular Volume TNR fl (79-97)
[2020-01-17 06:40] LABS: Platelet Count TNR K/mm3 (140-440); Red Cell Distribution Width TNR % (13.2-15.2)
[2020-01-17 06:51] LABS: Blood Urea Nitrogen 4 mg/dL (7-17); Calcium 8.8 mg/dL (8.4-10.2); Hemolysis Index 0
[2020-01-17 07:00] LABS: BUN/Creatinine Ratio 10
[2020-01-17 08:06] LABS: Hematocrit 26.8 % (30.3-42.9); Hemoglobin 8.2 gm/dl (10.1-14.3); Mean Corpuscular HGB Conc 31 % (30-34); Red Blood Count 4.28 M/mm3 (3.65-5.03)
[2020-01-17 08:26] LABS: Mean Corpuscular Volume 63 fl (79-97); Red Cell Distribution Width 28.4 % (13.2-15.2)
[2020-01-17 08:29] LABS: Platelet Count 1431 K/mm3 (140-440)
[2020-01-17] MEDS: ACETAMINOPHEN 325 MG TAB PO PRN ×2 (08:53→23:06)
[2020-01-17] MEDS: INSULIN REGULAR, HUMAN 100 UNIT/ML 3ML VIAL SUB-Q SCH ×4 (08:56→21:38)
[2020-01-17] MEDS: amLODIPine 10 MG TAB PO SCH (09:49)
[2020-01-17] MEDS: atenoloL 25 MG TAB PO SCH (09:50)
[2020-01-17] MEDS: PANTOPRAZOLE 40 MG TAB PO SCH (09:50)
[2020-01-17] MEDS: VENLAFAXINE 37.5 MG TAB PO SCH (09:51)
[2020-01-17 10:00] LABS: Hematocrit 25.6 % (30.3-42.9); Mean Corpuscular HGB Conc 31 % (30-34); Red Blood Count 4.09 M/mm3 (3.65-5.03)
[2020-01-17 10:04] LABS: Mean Corpuscular Volume 63 fl (79-97); Red Cell Distribution Width 28.9 % (13.2-15.2)
[2020-01-17 10:06] LABS: Platelet Count 1356 K/mm3 (140-440)
[2020-01-17] MEDS: ASPIRIN EC 325 MG TAB PO SCH (10:27)
[2020-01-17] MEDS: SODIUM CHLORIDE 0.9% 1000 ML 1,000 ML IV SCH ×2 (10:34→21:23)
[2020-01-17 11:08] LABS: Basophils % (Manual) 0 % (0.0-1.8); Myelocytes # (Manual) 0.3 K/mm3; Total Cells Counted 100
[2020-01-17 11:09] LABS: Anisocytosis 2+; Giant Platelets Rare; Hypochromasia 2+; Platelet Estimate Consistent w Auto; Tear Drop Cells 1+
[2020-01-17 11:22] LABS: Anisocytosis 2+; Basophils % (Manual) 0 % (0.0-1.8); Hypochromasia 2+; Platelet Estimate Consistent w Auto; Tear Drop Cells 1+; Total Cells Counted 100
--- NOTE | 2020-01-17 11:23 | Consultation ---
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 Heat CT neg for acute changes. Per notes, she had facial droop, now improving. 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 myelofibrosis is a possibility severe iron defic could be due to MPD (ET) or could be the opposite (primary iron defic) but I favor MPD as the main problem severe iron defic anemia is chronic; probably due to iron malabsorption>ble eding, but will still need to consider GI tract pathology severe iron defic anemia could be the reason for neuro symptoms RECOMMEND: s/p RBC transfusions (this gave her iron) plan IV iron infusions no intervention for now for high plt transfusions-->anticipate f/u and possible intervention in the future labs to include JAK2 mutation try for outpt f/u with me by televisit; also needs primary care f/u and consider GI referral Vital Signs Temp Pulse Resp BP Pulse Ox 98.4 F 97 H 18 134/65 96 01/17/20 08:03 01/17/20 09:50 01/17/20 08:03 01/17/20 09:50 01/17/20 08:03 Temperature -Last 24 Hours Temperature 98.4 F Temperature 98.2 F Temperature 98.5 F Temperature 98.2 F Temperature 98.7 F Temperature 98.5 F Temperature 98.6 F Temperature 98.8 F Temperature 99.0 F Temperature 98.3 F Temperature 98.5 F Home Medications Medication Instructions Recorded Confirmed Last Taken Metformin HCl [Metformin HCl ER] 750 mg PO QDAY 01/16/20 01/16/20 Unknown Omeprazole 40 mg PO QDAY 01/16/20 01/16/20 Unknown Simvastatin 10 mg PO QHS 01/16/20 01/16/20 Unknown Venlafaxine HCl [Effexor Xr] 37.5 mg PO QDAY 01/16/20 01/16/20 Unknown atenoloL [Tenormin] 25 mg PO DAILY 01/16/20 01/16/20 Unknown Laboratory Last Values WBC 10.2 K/mm3 (4.5-11.0) 01/17/20 09:35 Hgb 8.0 gm/dl (10.1-14.3) L 01/17/20 09:35 Hct 25.6 % (30.3-42.9) L 01/17/20 09:35 MCV 63 fl (79-97) L 01/17/20 09:35 Plt Count 1356 K/mm3 (140-440) H* 01/17/20 09:35 Seg Neuts % (Manual) 77.0 % (40.0-70.0) H 01/17/20 09:35 Band Neutrophils % 0 % 01/17/20 09:35 Lymphocytes % (Manual) 14.0 % (13.4-35.0) 01/17/20 09:35 Creatinine 0.4 mg/dL (0.6-1.2) L 01/17/20 05:45 Iron 11 ug/dL (37-170) L 01/16/20 11:49 TIBC 415 mcg/dL (250-450) 01/16/20 11:49 Ferritin 15.9 ng/mL (10.0-200.0) 01/16/20 11:49 Past History Past Medical History: diabetes, hyperlipidemia, other (Mitral valve prolapse) Past Surgical History: cholecystectomy, Other (Right ankle surgery) Social history: denies: smoking, alcohol abuse Family history: CAD Medications and Allergies Allergies Allergy/AdvReac Type Severity Reaction Status Date / Time No Known Allergies Allergy Verified 10/26/17 06:30 Home Medications Medication Instructions Recorded Confirmed Last Taken Type Metformin HCl [Metformin HCl ER] 750 mg PO QDAY 01/16/20 01/16/20 Unknown History Omeprazole 40 mg PO QDAY 01/16/20 01/16/20 Unknown History Simvastatin 10 mg PO QHS 01/16/20 01/16/20 Unknown History Venlafaxine HCl [Effexor Xr] 37.5 mg PO QDAY 01/16/20 01/16/20 Unknown History atenoloL [Tenormin] 25 mg PO DAILY 01/16/20 01/16/20 Unknown History Active Meds: Active Medications Acetaminophen (Tylenol) 650 mg PO Q4H PRN PRN Reason: Pain MILD(1-3)/Fever >100.5/IZQUIERDO Last Admin: 01/17/20 08:53 Dose: 650 mg Documented by: Amlodipine Besylate (Amlodipine) 10 mg PO QDAY [facility] Last Admin: 01/17/20 09:49 Dose: 10 mg Documented by: Aspirin (Ecotrin) 325 mg PO QDAY [facility] Last Admin: 01/17/20 10:27 Dose: 325 mg Documented by: Atenolol (Tenormin) 25 mg PO DAILY [facility] Last Admin: 01/17/20 09:50 Dose: 25 mg Documented by: Atorvastatin Calcium (Lipitor) 40 mg PO QHS [facility] Last Admin: 01/16/20 21:26 Dose: 40 mg Documented by: Sodium Chloride (Nacl 0.9% 1000 Ml) 1,000 mls @ 100 mls/hr IV DIRECT [facility] Last Admin: 01/17/20 10:34 Dose: 100 mls/hr Documented by: Insulin Human Regular (Humulin R) 0 unit SUB-Q ACHS [facility]; Protocol Last Admin: 01/17/20 08:56 Dose: Not Given Documented by: Pantoprazole Sodium (Protonix) 40 mg PO DAILY [facility] Last Admin: 01/17/20 09:50 Dose: 40 mg Documented by: Venlafaxine HCl (Effexor) 37.5 mg PO DAILY [facility] Last Admin: 01/17/20 09:51 Dose: 37.5 mg Documented by: Zolpidem Tartrate (Ambien) 5 mg PO QHS PRN PRN Reason: Sleep Last Admin: 01/16/20 21:26 Dose: 5 mg Documented by: Exam - Constitutional Vitals: Temp Pulse Resp BP Pulse Ox 98.4 F 97 H 18 134/65 96 01/17/20 08:03 01/17/20 09:50 01/17/20 08:03 01/17/20 09:50 01/17/20 08:03 Results - Labs CBC & Chem 7: 01/17/20 09:35 01/17/20 05:45 Labs: Abnormal lab results 01/16/20 01/16/20 01/16/20 Range/Units 06:55 11:49 11:49 Hgb (10.1-14.3) gm/dl Hct (30.3-42.9) % MCV (79-97) fl MCH (28-32) pg RDW (13.2-15.2) % Plt Count (140-440) K/mm3 Seg Neuts % (Manual) (40.0-70.0) % Seg Neutrophils # Man (1.8-7.7) K/mm3 Sodium (137-145) mmol/L BUN (7-17) mg/dL Creatinine (0.6-1.2) mg/dL Glucose (65-100) mg/dL POC Glucose (70-105) Iron 11 L (37-170) ug/dL Vitamin B12 1517 H (211-911) pg/mL Crossmatch See Detail 01/16/20 01/16/20 01/17/20 Range/Units 19:13 21:33 05:45 Hgb 6.5 L (10.1-14.3) gm/dl Hct 21.2 L (30.3-42.9) % MCV (79-97) fl MCH (28-32) pg RDW (13.2-15.2) % Plt Count (140-440) K/mm3 Seg Neuts % (Manual) (40.0-70.0) % Seg Neutrophils # Man (1.8-7.7) K/mm3 Sodium 136 L D (137-145) mmol/L BUN 4 L (7-17) mg/dL Creatinine 0.4 L (0.6-1.2) mg/dL Glucose 111 H (65-100) mg/dL POC Glucose 127 H (70-105) Iron (37-170) ug/dL Vitamin B12 (211-911) pg/mL Crossmatch 01/17/20 01/17/20 01/17/20 Range/Units 07:39 08:17 09:35 Hgb 8.2 L 8.0 L (10.1-14.3) gm/dl Hct 26.8 L 25.6 L (30.3-42.9) % MCV 63 L 63 L (79-97) fl MCH 19 L 20 L (28-32) pg RDW 28.4 H 28.9 H (13.2-15.2) % Plt Count 1431 H* D 1356 H* (140-440) K/mm3 Seg Neuts % (Manual) 77.0 H (40.0-70.0) % Seg Neutrophils # Man 7.9 H (1.8-7.7) K/mm3 Sodium (137-145) mmol/L BUN (7-17) mg/dL Creatinine (0.6-1.2) mg/dL Glucose (65-100) mg/dL POC Glucose 127 H (70-105) Iron (37-170) ug/dL Vitamin B12 (211-911) pg/mL Crossmatch
[2020-01-17 11:46] LABS: Chol/HDL Ratio 2.9 %
[2020-01-17] MEDS: SODIUM FERRIC GLUCON/SUCRO 125 MG in SODIUM CHLORIDE 0.9% 100 ML IV SCH (13:28)
--- NOTE | 2020-01-17 15:17 | Progress Note ---
Assessment and Plan Possible CVA -cont to monitor the patient to remote telemetry - Patient on statin, consulted neurology -Initially aspirin was on hold for severe anemia with hemoglobin 5.1, will restart it today as her thrombocytosis as source and - CT scan of the head obtained in the ER and shows no acute process - pending MRI of the head, 2-D echocardiogram -Patient is tolerating diet - Further management will be based on pending lab results and imaging studies - cont on GI prophylaxis to avoid stress ulcer Hyperkalemia, K 5.2 on admission -monitor BMP, resolved - kayexalate as needed Hyponatremia, Na 125 on admission - cont iv fluid, improving Thrombocytosis, likely reactive -Platelets count today 1431 -Continue to monitor CBC, consult hematology Symptomatic microcytic anemia with severe iron deficiency -Hemoglobin 5.1 on admission -s/p transfusion, ordered stool for occult blood Diabetes mellitus type 2 -cont Consistent carb diet, check A1c, monitor blood glucose with QA CHS and SSI Leukocytosis, likely reactive - resolved -Patient is afebrile, will continue to monitor clinically Hyperlipidemia, continue statin Hypertension, will resume home meds if MRI brain is normal -Allow permissive hypertension for now, -Labetalol 10 mg IV every 4 hour if SBP greater than 180 -SCD for DVT prophylaxis 01/16: MRI and 2D echo pending. Will follow neurology recommendation. Will start on aspirin as platelets count 1421 today. We will also consult hematology as patient might have myeloproliferative disorder. Monitor CBC, -patient is tolerating diet today. Subjective Date of service: 01/17/20 Interval history: Patient seen and examined. Medical records and medication list reviewed. No acute event overnight noted by the RN. Patient denies any chest pain or difficulty breathing. Patient is tolerating diet. hb improved, platelet count highly elevated today Discussed plan of care at bedside with patient. Objective - Exam Narrative Exam: GENERAL: well-developed and well-nourished white female lying on bed appeared to be in no discomfort. HEENT: Normocephalic. Atraumatic. No conjunctival congestion or icterus. Patient has moist mucous membranes. NECK: Supple. Trachea midline. CHEST/LUNGS: Clear to auscultated bilaterally, breathing nonlabored. No wheezes crackles or rhonchi. HEART/CARDIOVASCULAR: Regular in rate and rhythm. S1 and S2 positive. ABDOMEN: Abdomen is soft, nontender. Patient has normal bowel sounds. SKIN: There is no rash. Warm and dry. NEURO: No focal motor deficit. Follows command. MUSCULOSKELETAL: No joint effusion or tenderness. EXTRIMITY: No edema, no cyanosis or clubbing. PSYCH: Cooperative. - Constitutional Vitals: Vital Signs - 12hr 01/17/20 01/17/20 01/17/20 08:03 09:46 09:49 Temperature 98.4 F Pulse Rate 85 97 H 97 H Pulse Rate [ Left Radial] Pulse Rate [ Right Radial] Respiratory 18 Rate Blood Pressure 166/78 134/65 134/65 O2 Sat by Pulse 96 94 Oximetry 01/17/20 01/17/20 01/17/20 09:50 10:00 12:09 Temperature 97.9 F Pulse Rate 97 H 91 H 69 Pulse Rate [ 97 H Left Radial] Pulse Rate [ 97 H Right Radial] Respiratory 20 18 Rate Blood Pressure 134/65 133/55 O2 Sat by Pulse 94 Oximetry - Labs CBC & Chem 7: 01/18/20 07:05 01/18/20 07:05 Labs: Abnormal lab results 01/16/20 01/16/20 01/16/20 Range/Units 06:55 19:13 21:33 Hgb 6.5 L (10.1-14.3) gm/dl Hct 21.2 L (30.3-42.9) % MCV (79-97) fl MCH (28-32) pg RDW (13.2-15.2) % Plt Count (140-440) K/mm3 Seg Neuts % (Manual) (40.0-70.0) % Seg Neutrophils # Man (1.8-7.7) K/mm3 Sodium (137-145) mmol/L BUN (7-17) mg/dL Creatinine (0.6-1.2) mg/dL Glucose (65-100) mg/dL POC Glucose 127 H (70-105) Triglycerides (2-149) mg/dL Crossmatch See Detail 01/17/20 01/17/20 01/17/20 Range/Units 05:45 05:45 07:39 Hgb 8.2 L (10.1-14.3) gm/dl Hct 26.8 L (30.3-42.9) % MCV 63 L (79-97) fl MCH 19 L (28-32) pg RDW 28.4 H (13.2-15.2) % Plt Count 1431 H* D (140-440) K/mm3 Seg Neuts % (Manual) 76.0 H (40.0-70.0) % Seg Neutrophils # Man (1.8-7.7) K/mm3 Sodium 136 L D (137-145) mmol/L BUN 4 L (7-17) mg/dL Creatinine 0.4 L (0.6-1.2) mg/dL Glucose 111 H (65-100) mg/dL POC Glucose (70-105) Triglycerides 158 H (2-149) mg/dL Crossmatch 01/17/20 01/17/20 Range/Units 08:17 09:35 Hgb 8.0 L (10.1-14.3) gm/dl Hct 25.6 L (30.3-42.9) % MCV 63 L (79-97) fl MCH 20 L (28-32) pg RDW 28.9 H (13.2-15.2) % Plt Count 1356 H* (140-440) K/mm3 Seg Neuts % (Manual) 77.0 H (40.0-70.0) % Seg Neutrophils # Man 7.9 H (1.8-7.7) K/mm3 Sodium (137-145) mmol/L BUN (7-17) mg/dL Creatinine (0.6-1.2) mg/dL Glucose (65-100) mg/dL POC Glucose 127 H (70-105) Triglycerides (2-149) mg/dL Crossmatch HEART Score - HEART Score Troponin: Troponin T < 0.010 ng/mL (0.00-0.029) 01/16/20 06:41
--- NOTE | 2020-01-17 17:39 | Ultrasound Report ---
US abdomen limited INDICATION: myeloproliferative disorder, eval spleen size COMPARISON: None. FINDINGS: Sonographic images of the spleen were obtained to evaluate for mild proliferative disorder. Spleen me asures 13.2 x 4.2 x 4.2 cm. No significant abnormality. Left kidney measures 12.6 cm and appears within normal limits. IMPRESSION: Spleen is upper limits of normal for size. Signer Name: Marshall Rae MD Signed: 01/17/2020 5:35 PM Workstation Name: [id number]
[2020-01-17] MEDS: ZOLPIDEM 5 MG TAB PO PRN (21:23)
[2020-01-18 07:36] LABS: Mean Corpuscular HGB Conc 31 % (30-34); Red Blood Count 4.04 M/mm3 (3.65-5.03)
[2020-01-18 07:37] LABS: Mean Corpuscular Volume 64 fl (79-97); Red Cell Distribution Width 28.7 % (13.2-15.2)
[2020-01-18 07:40] LABS: Platelet Count 1394 K/mm3 (140-440)
[2020-01-18 07:53] LABS: Blood Urea Nitrogen 5 mg/dL (7-17); Calcium 8.9 mg/dL (8.4-10.2); Hemolysis Index 0
[2020-01-18 08:01] LABS: BUN/Creatinine Ratio 13
[2020-01-18] MEDS: INSULIN REGULAR, HUMAN 100 UNIT/ML 3ML VIAL SUB-Q SCH ×4 (08:15→21:10)
[2020-01-18] MEDS: VENLAFAXINE 37.5 MG TAB PO SCH (09:10)
[2020-01-18] MEDS: ASPIRIN EC 325 MG TAB PO SCH (09:10)
[2020-01-18] MEDS: PANTOPRAZOLE 40 MG TAB PO SCH (09:10)
[2020-01-18] MEDS: amLODIPine 10 MG TAB PO SCH (09:10)
[2020-01-18] MEDS: atenoloL 25 MG TAB PO SCH (09:11)
[2020-01-18] MEDS: ACETAMINOPHEN 325 MG TAB PO PRN (09:12)
[2020-01-18] MEDS: SODIUM FERRIC GLUCON/SUCRO 125 MG in SODIUM CHLORIDE 0.9% 100 ML IV SCH (11:07)
[2020-01-18] MEDS: SODIUM CHLORIDE 0.9% 1000 ML 1,000 ML IV SCH (11:08)
--- NOTE | 2020-01-18 11:24 | Magnetic Resonance Report ---
MR brain wo con INDICATION / CLINICAL INFORMATION: 60 years Female; CVA. TECHNIQUE: Multiplanar, multisequence MR images of the brain were obtained. COMPARISON: None available. FINDINGS: BRAIN / INTRACRANIAL CONTENTS: MR brain wo con INDICATION / CLINICAL INFORMATION: 60 years Female; CVA. TECHNIQUE: Multiplanar, multisequence MR images of the brain were obtained. COMPARISON: None available. FINDINGS: BRAIN / INTRACRANIAL CONTENTS: There is acute to infarct involving the right centrum semiovale measur ing 1.4 cm in greatest transverse dimension. A small 5 mm focus of acute infarction is also noted diego ng the right frontal parietal cortical region. The brain otherwise demonstrate appropriate signal characteristics for age. This mild cerebral atroph y. The ventricular system is correspondingly appropriate in size and configuration. No extra-axial fl uid collections or significant mass effect is identified. CRANIOCERVICAL JUNCTION: No significant abnormality. VASCULAR FLOW-VOIDS: No significant abnormality. ORBITS: No significant abnormality of visualized orbits. SINUSES / MASTOIDS: No significant abnormality in the visualized paranasal sinuses or mastoid air cierra ls. ADDITIONAL FINDINGS: None. IMPRESSION: 1. There is a 1.4 cm acute to infarct involving the right centrum semiovale. Additionally, there is a small 5 mm acute infarct along the right parietal cortical region. CRANIOCERVICAL JUNCTION: No significant abnormality. VASCULAR FLOW-VOIDS: No significant abnormality. ORBITS: No significant abnormality of visualized orbits. SINUSES / MASTOIDS: No significant abnormality in the visualized paranasal sinuses or mastoid air cierra ls. ADDITIONAL FINDINGS: None. IMPRESSION: 1. Signer Name: Georgi Oliveira MD Signed: 01/18/2020 11:19 AM Workstation Name: [id number]
[2020-01-18 12:27] LABS: Basophils % (Manual) 0 % (0.0-1.8); Total Cells Counted 100
[2020-01-18 12:28] LABS: Anisocytosis 2+; Hypochromasia 2+; Large Platelets Rare; Platelet Estimate Consistent w Auto
--- NOTE | 2020-01-18 13:25 | Progress Note ---
Assessment and Plan Acute CVA -cont to monitor the patient to remote telemetry - Patient on statin, consulted neurology -Initially aspirin was on hold for severe anemia with hemoglobin 5.1, then restarted as her thrombocytosis worsened - CT scan of the head, CTA head/neck obtained in the ER and shows no acute process - MRI showed acute CVA, 2d echo showed preserved EF -Patient is tolerating diet - cont on GI prophylaxis to avoid stress ulcer MRI brain: There is a 1.4 cm acute to infarct involving the right centrum semiovale. Additionally, there is a small 5 mm acute infarct along the right parietal cortical region. Hyperkalemia, K 5.2 on admission -monitor BMP, resolved - kayexalate as needed Hyponatremia, Na 125 on admission - cont iv fluid, improving Thrombocytosis, -Platelets count increased to 1431 -Continue to monitor CBC, consulted hematology -severe high plt count likely due to myeloproliferative disorder (essential thrombocytosis)- myelofibrosis is a possibility - JAK2 mutation study as outpt - abdomen US showed normal spleen Symptomatic microcytic anemia with severe iron deficiency -Hemoglobin 5.1 on admission -s/p transfusion, ordered stool for occult blood - ordered for iron transfusion Diabetes mellitus type 2 -cont Consistent carb diet, check A1c, monitor blood glucose with QA CHS and SSI Leukocytosis, likely reactive - resolved -Patient is afebrile, will continue to monitor clinically Hyperlipidemia, continue statin Hypertension, will resume home meds if MRI brain is normal -Allow permissive hypertension for now, -Labetalol 10 mg IV every 4 hour if SBP greater than 180 Right thyroid nodule: follow TSH/T4 -SCD for DVT prophylaxis 01/16: MRI and 2D echo pending. Will follow neurology recommendation. Will start on aspirin as platelets count 1421 today. We will also consult hematology as patient might have myeloproliferative disorder. Monitor CBC, -patient is tolerating diet today. 01/17: Patient started on iron transfusion - end date 01/19. MRI suggestive of acute CVA. follow neurology eval. appreciate physician liaison recommendation. cont to follow. Subjective Date of service: 01/18/20 Interval history: Patient seen and examined. Medical records and medication list reviewed. No acute event overnight noted by the RN. Patient denies any chest pain or difficulty breathing. Patient is tolerating diet. hb improved, platelet count highly elevated today Discussed plan of care at bedside with patient. Objective - Exam Narrative Exam: GENERAL: well-developed and well-nourished white female lying on bed appeared to be in no discomfort. HEENT: Normocephalic. Atraumatic. No conjunctival congestion or icterus. Patient has moist mucous membranes. NECK: Supple. Trachea midline. CHEST/LUNGS: Clear to auscultated bilaterally, breathing nonlabored. No wheezes crackles or rhonchi. HEART/CARDIOVASCULAR: Regular in rate and rhythm. S1 and S2 positive. ABDOMEN: Abdomen is soft, nontender. Patient has normal bowel sounds. SKIN: There is no rash. Warm and dry. NEURO: No focal motor deficit. Follows command. MUSCULOSKELETAL: No joint effusion or tenderness. EXTRIMITY: No edema, no cyanosis or clubbing. PSYCH: Cooperative. - Constitutional Vitals: Vital Signs - 12hr 01/18/20 01/18/20 01/18/20 03:24 08:05 08:38 Temperature 97.9 F 100.0 F H Pulse Rate 89 83 Respiratory 14 16 18 Rate Blood Pressure 135/72 135/65 O2 Sat by Pulse 95 95 96 Oximetry 01/18/20 01/18/20 01/18/20 09:10 09:11 11:40 Temperature 97.9 F Pulse Rate 88 70 Respiratory 16 Rate Blood Pressure 135/65 135/65 140/67 O2 Sat by Pulse 96 Oximetry - Labs CBC & Chem 7: 01/18/20 07:05 01/18/20 07:05 Labs: Abnormal lab results 01/17/20 01/18/20 01/18/20 Range/Units 20:53 07:05 07:05 Hgb 8.0 L (10.1-14.3) gm/dl Hct 26.0 L (30.3-42.9) % MCV 64 L (79-97) fl MCH 20 L (28-32) pg RDW 28.7 H (13.2-15.2) % Plt Count 1394 H* (140-440) K/mm3 BUN 5 L (7-17) mg/dL Creatinine 0.4 L (0.6-1.2) mg/dL Glucose 113 H (65-100) mg/dL POC Glucose 132 H (70-105) 01/18/20 01/18/20 Range/Units 08:18 11:53 Hgb (10.1-14.3) gm/dl Hct (30.3-42.9) % MCV (79-97) fl MCH (28-32) pg RDW (13.2-15.2) % Plt Count (140-440) K/mm3 BUN (7-17) mg/dL Creatinine (0.6-1.2) mg/dL Glucose (65-100) mg/dL POC Glucose 149 H 118 H (70-105) HEART Score - HEART Score Troponin: Troponin T < 0.010 ng/mL (0.00-0.029) 01/16/20 06:41
--- NOTE | 2020-01-18 17:56 | Consultation ---
History of Present Illness - Reason for Consult Consult date: 01/18/20 - History of Present Illness [facility] TeleNeurology Consult Services Stat Consult Date of Service: 01/18/2020 17:21:37 Impression: Rule Out Acute Ischemic Stroke Comments/Sign-Out: The patient was last normal three days prior. 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 GI would be a good thing to do. Also she has been on a Keto diet. Nutrition consultation. Stool occult has kendall sent and was negaitve, here. She had an elevated temperature. She did have COVID in July. Recommend GI Consulation to rule out source of bleeding. 1. Consider GI consultation today before leaving 2. Echo is clar 3. HgbA1c - 4. Nutrtiion consultation 5. She should have physical therapy for her hand. 6. Follow up with neurology as outpatinet 8. Consider GI as still source for loss of hgb, need to rule out bleed. 9. ufnvl1s, 10. LDL 55 - bring Atorvastatin to [address] HEAD: Showed No Acute Hemorrhage or Acute Core Infarct Metrics: [facility] Notification Time: 01/18/2020 17:21:37 Stamp Time: 01/18/2020 17:21:37 Callback Response Time: 01/18/2020 17:24:00 Video Start Time: 01/18/2020 17:51:29 Video End Time: 01/18/2020 18:05:40 Our recommendations are outlined below. Recommendations: Antiplatelet Therapy Imaging Studies: MRI Head with and Without Contrast Therapies: Physical Therapy, Occupational Therapy, Speech Therapy Assessment When Applicable Other WorkUp: Infectious/metabolic workup per primary team Check CMP Check an ammonia level Check B12 level Check TSH Check Urinalysis Disposition: Neurology Follow Up Recommended Sign Out: Discussed with Emergency Department Provider Chief Complaint: dysarhtria and left sided weakness History of Present Illness: Patient is a 60 year old Female. 60 female with left facial droop, dysarthria and left sided weakness that started on January 15. MRI BRAIN show right parietal cortical and centrum semiovale acute stroke. Already on aspirin. Further recs. There was concern that ther might be a bleed, and this is why she did not receive alteplase because of this. But now there is another theory she states. There was an asprina and alkaceltzer and her blood went low. Initiatlly that was the - She was concerned about having dark stools before. A stool sample has been sent for blood however this is still pending. She needs clearance from GI. Past Medical History: Hypertension There is NO history of Diabetes Mellitus There is NO history of Hyperlipidemia There is NO history of Atrial Fibrillation There is NO history of Coronary Artery Disease There is NO history of Stroke Anticoagulant use: Antiplatelet use: asprin because of high platelts Examination: BP(140/71), Pulse(78), Blood Glucose(100) 1A: Level of Consciousness - Alert; keenly responsive + 0 1B: Ask Month and Age - Both Questions Right + 0 1C: Blink Eyes & Squeeze Hands - Performs Both Tasks + 0 2: Test Horizontal Extraocular Movements - Normal + 0 3: Test Visual [place] - No Visual Loss + 0 4: Test Facial Palsy (Use Grimace if Obtunded) - Normal symmetry + 0 5A: Test Left Arm Motor Drift - No Drift for 10 Seconds + 0 5B: Test Right Arm Motor Drift - No Drift for 10 Seconds + 0 6A: Test Left Leg Motor Drift - No Drift for 5 Seconds + 0 6B: Test Right Leg Motor Drift - No Drift for 5 Seconds + 0 7: Test Limb Ataxia (FNF/Heel-Noland) - No Ataxia + 0 8: Test Sensation - Normal; No sensory loss + 0 9: Test Language/Aphasia - Normal; No aphasia + 0 10: Test Dysarthria - Normal + 0 11: Test Extinction/Inattention - No abnormality + 0 NIHSS Score: 0 Patient/Family was informed the Neurology Consult would happen via TeleHealth consult by way of interactive audio and video telecommunications and consented to receiving care in this manner. Due to the immediate potential for life-threatening deterioration due to underlying acute neurologic illness, I spent 35 minutes providing critical care. This time includes time for face to face visit via telemedicine, review of medical records, imaging studies and discussion of findings with providers, the patient and/or family. Dr Miles [facility] Case [id number] Past History Past Medical History: diabetes, hyperlipidemia, other (Mitral valve prolapse, chronic anemia) Past Surgical History: cholecystectomy, Other (Right ankle surgery) Social history: denies: smoking, alcohol abuse Family history: CAD Medications and Allergies Allergies Allergy/AdvReac Type Severity Reaction Status Date / Time No Known Allergies Allergy Verified 10/26/17 06:30 Home Medications Medication Instructions Recorded Confirmed Last Taken Type Metformin HCl [Metformin HCl ER] 750 mg PO QDAY 01/16/20 01/16/20 Unknown History Omeprazole 40 mg PO QDAY 01/16/20 01/16/20 Unknown History Simvastatin 10 mg PO QHS 01/16/20 01/16/20 Unknown History Venlafaxine HCl [Effexor Xr] 37.5 mg PO QDAY 01/16/20 01/16/20 Unknown History atenoloL [Tenormin] 25 mg PO DAILY 01/16/20 01/16/20 Unknown History Active Meds: Active Medications Acetaminophen (Tylenol) 650 mg PO Q4H PRN PRN Reason: Pain MILD(1-3)/Fever >100.5/IZQUIERDO Last Admin: 01/18/20 09:12 Dose: 650 mg Documented by: Amlodipine Besylate (Amlodipine) 10 mg PO QDAY [facility] Last Admin: 01/18/20 09:10 Dose: 10 mg Documented by: Aspirin (Ecotrin) 325 mg PO QDAY [facility] Last Admin: 01/18/20 09:10 Dose: 325 mg Documented by: Atenolol (Tenormin) 25 mg PO DAILY [facility] Last Admin: 01/18/20 09:11 Dose: 25 mg Documented by: Atorvastatin Calcium (Lipitor) 40 mg PO QHS [facility] Last Admin: 01/17/20 21:23 Dose: 40 mg Documented by: Enoxaparin Sodium (Enoxaparin) 40 mg SUB-Q QDAY@2200 [facility]; Protocol Ferric Sodium Gluconate Complex 125 mg/ Sodium Chloride 110 mls @ 100 mls/hr IV DAILY [facility] Stop: 01/20/20 12:59 Last Admin: 01/18/20 11:07 Dose: 100 mls/hr Documented by: Insulin Human Regular (Humulin R) 0 unit SUB-Q ACHS [facility]; Protocol Last Admin: 01/18/20 12:48 Dose: Not Given Documented by: Pantoprazole Sodium (Protonix) 40 mg PO DAILY [facility] Last Admin: 01/18/20 09:10 Dose: 40 mg Documented by: Venlafaxine HCl (Effexor) 37.5 mg PO DAILY [facility] Last Admin: 01/18/20 09:10 Dose: 37.5 mg Documented by: Zolpidem Tartrate (Ambien) 5 mg PO QHS PRN PRN Reason: Sleep Last Admin: 01/17/20 21:23 Dose: 5 mg Documented by: Exam - Constitutional Vitals: Temp Pulse Resp BP Pulse Ox 97.9 F 78 18 141/71 95 01/18/20 16:21 01/18/20 16:21 01/18/20 16:21 01/18/20 16:21 01/18/20 16:21 Results - Labs CBC & Chem 7: 01/18/20 07:05 01/18/20 07:05 Labs: Abnormal lab results 01/17/20 01/17/20 01/18/20 Range/Units 16:52 20:53 07:05 Hgb 8.0 L (10.1-14.3) gm/dl Hct 26.0 L (30.3-42.9) % MCV 64 L (79-97) fl MCH 20 L (28-32) pg RDW 28.7 H (13.2-15.2) % Plt Count 1394 H* (140-440) K/mm3 BUN (7-17) mg/dL Creatinine (0.6-1.2) mg/dL Glucose (65-100) mg/dL POC Glucose 121 H 132 H (70-105) 01/18/20 01/18/20 01/18/20 Range/Units 07:05 08:18 11:53 Hgb (10.1-14.3) gm/dl Hct (30.3-42.9) % MCV (79-97) fl MCH (28-32) pg RDW (13.2-15.2) % Plt Count (140-440) K/mm3 BUN 5 L (7-17) mg/dL Creatinine 0.4 L (0.6-1.2) mg/dL Glucose 113 H (65-100) mg/dL POC Glucose 149 H 118 H (70-105) 01/18/20 Range/Units 16:35 Hgb (10.1-14.3) gm/dl Hct (30.3-42.9) % MCV (79-97) fl MCH (28-32) pg RDW (13.2-15.2) % Plt Count (140-440) K/mm3 BUN (7-17) mg/dL Creatinine (0.6-1.2) mg/dL Glucose (65-100) mg/dL POC Glucose 107 H (70-105)
[2020-01-18] MEDS: ENOXAPARIN 40 MG/0.4 ML INJ SUB-Q SCH (21:09)
[2020-01-18] MEDS: ZOLPIDEM 5 MG TAB PO PRN (21:16)
[2020-01-19 07:56] LABS: Hematocrit 28.5 % (30.3-42.9); Hemoglobin 8.6 gm/dl (10.1-14.3); Mean Corpuscular HGB Conc 30 % (30-34); Red Blood Count 4.42 M/mm3 (3.65-5.03)
[2020-01-19 08:02] LABS: Mean Corpuscular Volume 65 fl (79-97); Red Cell Distribution Width 30.2 % (13.2-15.2)
[2020-01-19 08:04] LABS: Platelet Count 1548 K/mm3 (140-440)
[2020-01-19] MEDS: INSULIN REGULAR, HUMAN 100 UNIT/ML 3ML VIAL SUB-Q SCH ×4 (08:33→23:15)
[2020-01-19 09:09] LABS: Basophils # (Auto) 0.1 K/mm3 (0.0-0.1); Eosinophils # (Auto) 0.2 K/mm3 (0.0-0.4); Eosinophils % (Auto) 2.3 % (0.0-4.3); Monocytes # (Auto) 0.8 K/mm3 (0.0-0.8); Monocytes % (Auto) 9.8 % (0.0-7.3)
[2020-01-19] MEDS: PANTOPRAZOLE 40 MG TAB PO SCH (09:16)
[2020-01-19] MEDS: VENLAFAXINE 37.5 MG TAB PO SCH (09:16)
[2020-01-19] MEDS: ASPIRIN EC 325 MG TAB PO SCH (09:16)
[2020-01-19] MEDS: SODIUM FERRIC GLUCON/SUCRO 125 MG in SODIUM CHLORIDE 0.9% 100 ML IV SCH (09:21)
[2020-01-19] MEDS: atenoloL 25 MG TAB PO SCH (09:25)
[2020-01-19] MEDS: amLODIPine 10 MG TAB PO SCH (09:28)
--- NOTE | 2020-01-19 10:09 | Progress Note ---
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 Heat CT neg for acute changes. Per notes, she had facial droop, now improving. found to have severe iron defic found to have Hgb 5-->RBC transfusion to Hgb 8 then received IV iron infusions Brain MRI c/w stroke: 1.4 cm acute infarct involving the right centrum semiovale DATA reviewed below IMPRESSION severe high plt count likely due to myeloproliferative disorder (essential thrombocytosis). severe iron defic could be due to MPD (ET) presumed clotting tendency, now s/p stroke` severe iron defic anemia is chronic; probably due to iron malabsorption>bleeding, but will still need to consider GI tract pathology RECOMMEND: s/p RBC transfusions & IV iron infusions I recommend starting hydrea 500mg po bid for myeloproliferative disorder stay in hosp until plt count decreases to <1000 anticipate discharge on hydrea 500mg po bid awaiting JAK2 mutation testing, but won't change recs will try for outpt f/u with me by televisit; also needs primary care f/u and consider GI referral no need for bone marrow biopsy for now agree with aspirin 325mg daily Vital Signs Temp Pulse Resp BP Pulse Ox 98.4 F 94 H 18 118/66 98 01/19/20 08:23 01/19/20 09:25 01/19/20 08:23 01/19/20 09:25 01/19/20 08:23 Temperature -Last 24 Hours Temperature 98.4 F Temperature 98.5 F Temperature 98.1 F Temperature 97.1 F Temperature 97.9 F Temperature 97.9 F Active Medications Acetaminophen (Tylenol) 650 mg PO Q4H PRN PRN Reason: Pain MILD(1-3)/Fever >100.5/IZQUIERDO Last Admin: 01/18/20 09:12 Dose: 650 mg Documented by: Amlodipine Besylate (Amlodipine) 10 mg PO QDAY [facility] Last Admin: 01/19/20 09:28 Dose: Not Given Documented by: Aspirin (Ecotrin) 325 mg PO QDAY [facility] Last Admin: 01/19/20 09:16 Dose: 325 mg Documented by: Atenolol (Tenormin) 25 mg PO DAILY [facility] Last Admin: 01/19/20 09:25 Dose: 25 mg Documented by: Atorvastatin Calcium (Lipitor) 40 mg PO QHS [facility] Last Admin: 01/18/20 21:10 Dose: 40 mg Documented by: Enoxaparin Sodium (Enoxaparin) 40 mg SUB-Q QDAY@2200 [facility]; Protocol Last Admin: 01/18/20 21:09 Dose: 40 mg Documented by: Ferric Sodium Gluconate Complex 125 mg/ Sodium Chloride 110 mls @ 100 mls/hr IV DAILY [facility] Stop: 01/20/20 12:59 Last Admin: 01/19/20 09:21 Dose: 100 mls/hr Documented by: Insulin Human Regular (Humulin R) 0 unit SUB-Q ACHS [facility]; Protocol Last Admin: 01/19/20 08:33 Dose: Not Given Documented by: Pantoprazole Sodium (Protonix) 40 mg PO DAILY [facility] Last Admin: 01/19/20 09:16 Dose: 40 mg Documented by: Venlafaxine HCl (Effexor) 37.5 mg PO DAILY [facility] Last Admin: 01/19/20 09:16 Dose: 37.5 mg Documented by: Zolpidem Tartrate (Ambien) 5 mg PO QHS PRN PRN Reason: Sleep Last Admin: 01/18/20 21:16 Dose: 5 mg Documented by: Laboratory Last Values WBC 8.6 K/mm3 (4.5-11.0) 01/19/20 06:56 Hgb 8.6 gm/dl (10.1-14.3) L 01/19/20 06:56 Hct 28.5 % (30.3-42.9) L 01/19/20 06:56 MCV 65 fl (79-97) L 01/19/20 06:56 Plt Count 1548 K/mm3 (140-440) H* 01/19/20 06:56 PT 14.2 Sec. (12.2-14.9) 01/16/20 06:41 INR 1.09 (0.87-1.13) 01/16/20 06:41 APTT 28.1 Sec. (24.2-36.6) 01/16/20 06:41 Thrombin Time 19.9 Sec. (15.1-19.6) H 01/16/20 06:41 Iron 11 ug/dL (37-170) L 01/16/20 11:49 TIBC 415 mcg/dL (250-450) 01/16/20 11:49 Ferritin 15.9 ng/mL (10.0-200.0) 01/16/20 11:49 Objective - Constitutional Vitals: Vital Signs - 12hr 01/18/20 01/19/20 01/19/20 23:41 04:54 08:23 Temperature 98.1 F 98.5 F 98.4 F Pulse Rate 79 74 94 H Respiratory 18 16 18 Rate Blood Pressure 133/69 123/65 118/66 O2 Sat by Pulse 97 97 98 Oximetry 01/19/20 09:25 Temperature Pulse Rate 94 H Respiratory Rate Blood Pressure 118/66 O2 Sat by Pulse Oximetry - Labs CBC & Chem 7: 01/19/20 06:56 01/18/20 07:05 Labs: Abnormal lab results 01/17/20 01/18/20 01/18/20 Range/Units 16:52 11:53 16:35 Hgb (10.1-14.3) gm/dl Hct (30.3-42.9) % MCV (79-97) fl MCH (28-32) pg RDW (13.2-15.2) % Plt Count (140-440) K/mm3 [place] % (Auto) (0.0-7.3) % POC Glucose 121 H 118 H 107 H (70-105) 01/18/20 01/19/20 01/19/20 Range/Units 21:20 06:56 08:37 Hgb 8.6 L (10.1-14.3) gm/dl Hct 28.5 L (30.3-42.9) % MCV 65 L (79-97) fl MCH 19 L (28-32) pg RDW 30.2 H (13.2-15.2) % Plt Count 1548 H* (140-440) K/mm3 [place] % (Auto) 9.8 H (0.0-7.3) % POC Glucose 142 H 168 H (70-105) Medications & Allergies - Medications Allergies/Adverse Reactions: Allergies No Known Allergies Allergy (Verified 10/26/17 06:30) Home Medications: Home Medications Medication Instructions Recorded Confirmed Last Taken Type Metformin HCl [Metformin HCl ER] 750 mg PO QDAY 01/16/20 01/16/20 Unknown History Omeprazole 40 mg PO QDAY 01/16/20 01/16/20 Unknown History Simvastatin 10 mg PO QHS 01/16/20 01/16/20 Unknown History Venlafaxine HCl [Effexor Xr] 37.5 mg PO QDAY 01/16/20 01/16/20 Unknown History atenoloL [Tenormin] 25 mg PO DAILY 01/16/20 01/16/20 Unknown History Active Medications: Generic Name Dose Route Start Last Admin Trade Name Freq PRN Reason Stop Dose Admin Acetaminophen 650 mg 01/17/20 09:00 01/18/20 09:12 Tylenol PO 650 mg Q4H PRN Administration Pain MILD(1-3)/Fever >100.5/IZQUIERDO Amlodipine Besylate 10 mg 01/17/20 10:00 01/19/20 09:28 Amlodipine PO Not Given QDAY [facility] Aspirin 325 mg 01/17/20 11:00 01/19/20 09:16 Ecotrin PO 325 mg QDAY [facility] Administration Atenolol 25 mg 01/17/20 10:00 01/19/20 09:25 Tenormin PO 25 mg DAILY [facility] Administration Atorvastatin Calcium 40 mg 01/16/20 22:00 01/18/20 21:10 Lipitor PO 40 mg QHS [facility] Administration Enoxaparin Sodium 40 mg 01/18/20 22:00 01/18/20 21:09 Enoxaparin SUB-Q 40 mg QDAY@2200 [facility] Administration Protocol Ferric Sodium Gluconate 110 mls @ 100 mls/hr 01/17/20 13:00 01/19/20 09:21 Complex 125 mg/ Sodium IV 01/20/20 12:59 100 mls/hr Chloride DAILY [facility] Administration Insulin Human Regular 0 unit 01/16/20 11:30 01/19/20 08:33 Humulin R SUB-Q Not Given ACHS [facility] Protocol Pantoprazole Sodium 40 mg 01/16/20 10:00 01/19/20 09:16 Protonix PO 40 mg DAILY [facility] Administration Venlafaxine HCl 37.5 mg 01/16/20 10:00 01/19/20 09:16 Effexor PO 37.5 mg DAILY [facility] Administration Zolpidem Tartrate 5 mg 01/16/20 21:11 01/18/20 21:16 Ambien PO 5 mg QHS PRN Administration Sleep HEART Score - HEART Score Troponin: Troponin T < 0.010 ng/mL (0.00-0.029) 01/16/20 06:41
[2020-01-19 10:24] LABS: Basophils % (Manual) 0 % (0.0-1.8); Total Cells Counted 100
[2020-01-19 10:27] LABS: Giant Platelets Few; Hypochromasia 2+
[2020-01-19 10:28] LABS: Platelet Estimate Consistent w Auto; Tear Drop Cells Few
[2020-01-19] MEDS: HYDROXYUREA 500 MG CAP PO SCH ×2 (13:18→23:14)
--- NOTE | 2020-01-19 14:46 | Progress Note ---
Assessment and Plan Acute CVA -cont to monitor the patient to remote telemetry - Patient on statin, consulted neurology -Initially aspirin was on hold for severe anemia with hemoglobin 5.1, then restarted as her thrombocytosis worsened - CT scan of the head, CTA head/neck obtained in the ER and shows no acute process - MRI showed acute CVA, 2d echo showed preserved EF -Patient is tolerating diet - cont on GI prophylaxis to avoid stress ulcer MRI brain: There is a 1.4 cm acute to infarct involving the right centrum semiovale. Additionally, there is a small 5 mm acute infarct along the right parietal cortical region. Hyperkalemia, K 5.2 on admission -monitor BMP, resolved - kayexalate as needed Hyponatremia, Na 125 on admission - cont iv fluid, improving Thrombocytosis, -Platelets count increased to 1431 -Continue to monitor CBC, consulted hematology -severe high plt count likely due to myeloproliferative disorder (essential thrombocytosis)- myelofibrosis is a possibility - JAK2 mutation study as outpt - abdomen US showed normal spleen Symptomatic microcytic anemia with severe iron deficiency -Hemoglobin 5.1 on admission -s/p transfusion, ordered stool for occult blood - ordered for iron transfusion Diabetes mellitus type 2 -cont Consistent carb diet, check A1c, monitor blood glucose with QA CHS and SSI Leukocytosis, likely reactive - resolved -Patient is afebrile, will continue to monitor clinically Hyperlipidemia, continue statin Hypertension, will resume home meds if MRI brain is normal -Allow permissive hypertension for now, -Labetalol 10 mg IV every 4 hour if SBP greater than 180 Right thyroid nodule: Normal TSH/T4 - Will do thyroid ultrasound -SCD for DVT prophylaxis 01/16: MRI and 2D echo pending. Will follow neurology recommendation. Will start on aspirin as platelets count 1421 today. We will also consult hematology as patient might have myeloproliferative disorder. Monitor CBC, -patient is tolerating diet today. 01/17: Patient started on iron transfusion - end date 01/19. MRI suggestive of acute CVA. follow neurology eval. appreciate gas attendant recommendation. cont to follow. 01/18: Continue iron transfusion. Patient started on hydroxyurea. Appreciate hematology recommendation. Plan for discharge when platelets less than 1000 or cont to ttend down. Monitor CBC daily. Subjective Date of service: 01/19/20 Interval history: Patient seen and examined. Medical records and medication list reviewed. No acute event overnight noted by the RN. Patient denies any chest pain or difficulty breathing. Patient is tolerating diet. hb stable, platelets trended to ~1300s today Discussed plan of care at bedside with patient. Objective - Exam Narrative Exam: GENERAL: well-developed and well-nourished white female lying on bed appeared to be in no discomfort. HEENT: Normocephalic. Atraumatic. No conjunctival congestion or icterus. Patient has moist mucous membranes. NECK: Supple. Trachea midline. CHEST/LUNGS: Clear to auscultated bilaterally, breathing nonlabored. No wheezes crackles or rhonchi. HEART/CARDIOVASCULAR: Regular in rate and rhythm. S1 and S2 positive. ABDOMEN: Abdomen is soft, nontender. Patient has normal bowel sounds. SKIN: There is no rash. Warm and dry. NEURO: No focal motor deficit. Follows command. MUSCULOSKELETAL: No joint effusion or tenderness. EXTRIMITY: No edema, no cyanosis or clubbing. PSYCH: Cooperative. - Constitutional Vitals: Vital Signs - 12hr 01/19/20 01/19/20 01/19/20 04:54 07:25 08:00 Temperature 98.5 F Pulse Rate 74 87 Respiratory 16 18 Rate Blood Pressure 123/65 O2 Sat by Pulse 97 96 Oximetry 01/19/20 01/19/20 01/19/20 08:23 09:25 12:09 Temperature 98.4 F 97.4 F L Pulse Rate 94 H 94 H 74 Respiratory 18 18 Rate Blood Pressure 118/66 118/66 126/59 O2 Sat by Pulse 98 95 Oximetry - Labs CBC & Chem 7: 01/20/20 14:06 01/18/20 07:05 Labs: Abnormal lab results 01/17/20 01/18/20 01/18/20 Range/Units 16:52 16:35 21:20 Hgb (10.1-14.3) gm/dl Hct (30.3-42.9) % MCV (79-97) fl MCH (28-32) pg RDW (13.2-15.2) % Plt Count (140-440) K/mm3 [place] % (Auto) (0.0-7.3) % POC Glucose 121 H 107 H 142 H (70-105) 01/19/20 01/19/20 Range/Units 06:56 08:37 Hgb 8.6 L (10.1-14.3) gm/dl Hct 28.5 L (30.3-42.9) % MCV 65 L (79-97) fl MCH 19 L (28-32) pg RDW 30.2 H (13.2-15.2) % Plt Count 1548 H* (140-440) K/mm3 [place] % (Auto) 9.8 H (0.0-7.3) % POC Glucose 168 H (70-105) HEART Score - HEART Score Troponin: Troponin T < 0.010 ng/mL (0.00-0.029) 01/16/20 06:41
[2020-01-19] MEDS ORDERED: BISMUTH SUBSALICYLATE 262 MG/15 ML ORAL LIQD PO PRN (16:05)
[2020-01-19] MEDS: ENOXAPARIN 40 MG/0.4 ML INJ SUB-Q SCH (21:10)
[2020-01-19] MEDS: ZOLPIDEM 5 MG TAB PO PRN (23:14)
[2020-01-20] MEDS: INSULIN REGULAR, HUMAN 100 UNIT/ML 3ML VIAL SUB-Q SCH ×3 (08:00→16:28)
[2020-01-20] MEDS: ASPIRIN EC 325 MG TAB PO SCH (09:44)
[2020-01-20] MEDS: VENLAFAXINE 37.5 MG TAB PO SCH (09:45)
[2020-01-20] MEDS: atenoloL 25 MG TAB PO SCH (09:45)
[2020-01-20] MEDS: amLODIPine 10 MG TAB PO SCH (09:46)
[2020-01-20] MEDS: PANTOPRAZOLE 40 MG TAB PO SCH (09:46)
[2020-01-20] MEDS: ACETAMINOPHEN 325 MG TAB PO PRN (09:47)
[2020-01-20] MEDS: SODIUM FERRIC GLUCON/SUCRO 125 MG in SODIUM CHLORIDE 0.9% 100 ML IV SCH (09:53)
[2020-01-20 12:35] VITALS: BP 116/57
[2020-01-20] MEDS: HYDROXYUREA 500 MG CAP PO SCH (12:45)
--- NOTE | 2020-01-20 12:48 | Progress Note ---
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 Heat CT neg for acute changes. Per notes, she had facial droop, now improving. has been receiving IV iron infusions, s/p 2 units RBC last week has had high plt counts-->started yesterday on hydrea 500mg po bid Brain MRI c/w stroke: 1.4 cm acute infarct involving the right centrum semiovale says she feels much better-->hand weakness improved, walking, eating asking about discharge DATA reviewed below IMPRESSION severe high plt count likely due to myeloproliferative disorder (essential thrombocytosis). recent severe iron defic could be due to MPD (ET) presumed clotting tendency, now s/p stroke` severe iron defic anemia is chronic; probably due to iron malabsorption>bleeding, but will still need to consider GI tract pathology RECOMMEND: I recommend starting hydrea 500mg po bid for myeloproliferative disorder OK to plan discharge if plt trend is down, even if plt count decreases to <1000 anticipate discharge on hydrea 500mg po bid awaiting JAK2 mutation testing, but won't change recs planning outpt f/u by televisit; also needs primary care f/u and consider GI referral continue with aspirin 325mg daily, may consider adding eliquis in the future Objective - Constitutional Vitals: Vital Signs - 12hr 01/20/20 01/20/20 01/20/20 04:12 08:00 09:42 Temperature 98.8 F 99.4 F Pulse Rate 87 103 H Pulse Rate [ 79 Left Radial] Pulse Rate [ 79 Right Radial] Respiratory 18 15 20 Rate Blood Pressure 116/70 127/60 O2 Sat by Pulse 100 98 97 Oximetry 01/20/20 01/20/20 01/20/20 09:45 09:46 09:47 Temperature Pulse Rate 103 H 103 H Pulse Rate [ Left Radial] Pulse Rate [ Right Radial] Respiratory 16 Rate Blood Pressure 127/60 127/60 O2 Sat by Pulse Oximetry 01/20/20 12:16 Temperature 97.3 F L Pulse Rate 72 Pulse Rate [ Left Radial] Pulse Rate [ Right Radial] Respiratory 20 Rate Blood Pressure 116/57 O2 Sat by Pulse 96 Oximetry - Labs CBC & Chem 7: 01/19/20 06:56 01/18/20 07:05 Labs: Abnormal lab results 01/19/20 01/19/20 01/20/20 Range/Units 16:30 20:52 07:26 POC Glucose 124 H 129 H 149 H (70-105) Medications & Allergies - Medications Allergies/Adverse Reactions: Allergies No Known Allergies Allergy (Verified 10/26/17 06:30) Home Medications: Home Medications Medication Instructions Recorded Confirmed Last Taken Type Metformin HCl [Metformin HCl ER] 750 mg PO QDAY 01/16/20 01/16/20 Unknown H istory Omeprazole 40 mg PO QDAY 01/16/20 01/16/20 Unknown History Simvastatin 10 mg PO QHS 01/16/20 01/16/20 Unknown History Venlafaxine HCl [Effexor Xr] 37.5 mg PO QDAY 01/16/20 01/16/20 Unknown History atenoloL [Tenormin] 25 mg PO DAILY 01/16/20 01/16/20 Unknown History Active Medications: Generic Name Dose Route Start Last Admin Trade Name Freq PRN Reason Stop Dose Admin Acetaminophen 650 mg 01/17/20 09:00 01/20/20 09:47 Tylenol PO 650 mg Q4H PRN Administration Pain MILD(1-3)/Fever >100.5/IZQUIERDO Amlodipine Besylate 10 mg 01/17/20 10:00 01/20/20 09:46 Amlodipine PO 10 mg QDAY [facility] Administration Aspirin 325 mg 01/17/20 11:00 01/20/20 09:44 Ecotrin PO 325 mg QDAY [facility] Administration Atenolol 25 mg 01/17/20 10:00 01/20/20 09:45 Tenormin PO 25 mg DAILY [facility] Administration Atorvastatin Calcium 40 mg 01/16/20 22:00 01/19/20 21:10 Lipitor PO 40 mg QHS [facility] Administration Bismuth Subsalicylate 262 mg 01/19/20 16:05 01/19/20 17:16 Pepto Bismol PO 262 mg Q6H PRN Administration Indigestion Enoxaparin Sodium 40 mg 01/18/20 22:00 01/19/20 21:10 Enoxaparin SUB-Q 40 mg QDAY@2200 [facility] Administration Protocol Hydroxyurea 500 mg 01/19/20 11:30 01/19/20 23:14 Hydroxyurea PO 500 mg Q12H [facility] Administration Ferric Sodium Gluconate 110 mls @ 100 mls/hr 01/17/20 13:00 01/20/20 09:53 Complex 125 mg/ Sodium IV 01/20/20 12:59 100 mls/hr Chloride DAILY [facility] Administration Insulin Human Regular 0 unit 01/16/20 11:30 01/20/20 08:00 Humulin R SUB-Q Not Given ACHS [facility] Protocol Pantoprazole Sodium 40 mg 01/16/20 10:00 01/20/20 09:46 Protonix PO 40 mg DAILY [facility] Administration Venlafaxine HCl 37.5 mg 01/16/20 10:00 01/20/20 09:45 Effexor PO 37.5 mg DAILY [facility] Administration Zolpidem Tartrate 5 mg 01/16/20 21:11 01/19/20 23:14 Ambien PO 5 mg QHS PRN Administration Sleep HEART Score - HEART Score Troponin: Troponin T < 0.010 ng/mL (0.00-0.029) 01/16/20 06:41
[2020-01-20 14:33] LABS: Hematocrit 28.9 % (30.3-42.9); Hemoglobin 8.8 gm/dl (10.1-14.3); Mean Corpuscular HGB Conc 31 % (30-34); Red Blood Count 4.38 M/mm3 (3.65-5.03)
[2020-01-20 14:34] LABS: Mean Corpuscular Volume 66 fl (79-97); Red Cell Distribution Width 31.7 % (13.2-15.2)
[2020-01-20 14:35] LABS: Platelet Count 1301 K/mm3 (140-440)
[2020-01-20] MEDS ORDERED: cephALEXin 500 MG CAP PO SCH (15:00)
--- NOTE | 2020-01-20 16:26 | Discharge Summary ---
Providers - Providers Date of Admission: 01/16/20 07:51 Date of discharge: 01/20/20 Attending physician: RIMA SANZ 01/17/20 10:11 Consult to Physician [CONS] Routine Comment: Consulting Provider: SOURAV SOMMERS Physician Instructions: Reason For Exam: thrombocytosis 01/17/20 14:02 Occupational Therapy Evaluate and Treat [CONS] Urgent Comment: Reason For Exam: Patient admitted for poss CVA Physical Therapy Evaluation and Treat [CONS] Urgent Comment: Reason For Exam: Patient admitted for poss CVA 01/17/20 15:15 Consult to Physician [CONS] Routine Comment: Consulting Provider: CAROL MARTINS Physician Instructions: Reason For Exam: possible CVA 01/18/20 17:17 Consult to Physician [CONS] Stat Comment: Consulting Provider: ARIAN GAMBINO Physician Instructions: Reason For Exam: r/o stroke 01/20/20 12:26 Consult to Physician [CONS] Routine Comment: Consulting Provider: HAMZAH AGUERO Physician Instructions: Reason For Exam: severe anemia Primary care physician: MILLINERY WORKER Hospitalization Condition: Stable Pertinent studies: Head CT, head neck CTA, abdominal ultrasound, brain MRI, 2D echocardiogram, thyroid ultrasound Hospital course: 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 By the time she was presented to the ER and CT scan was done she started to feel some improvement, her facial droop is resolved and so does her left-sided weakness. Laboratory work-up showed severe anemia with hemoglobin of 5.1. CT CTA of head and neck showed no acute process. Patient was ordered for blood transfusion in the ER. Because of her severe anemia with her resolving symptoms and normal CT CTA findings patient does not qualify for tPA. Patient was admitted for stroke work-up and further management for severe anemia. daily course; 01/16: MRI and 2D echo pending. Will follow neurology recommendation. Will start on aspirin as platelets count 1421 today. We will also consult hematology as patient might have myeloproliferative disorder. Monitor CBC, -patient is tolerating diet today. 01/17: Patient started on iron transfusion - end date 01/19. MRI suggestive of acute CVA. follow neurology eval. appreciate dynamics ax consultant recommendation. cont to follow. 01/18: Continue iron transfusion. Patient started on hydroxyurea. Appreciate hematology recommendation. Plan for discharge when platelets less than 1000 or cont to ttend down. Monitor CBC daily. 01/19: h/h stable, plateletes ~1300. repeat BMP on monday. patient will f/u with Christopher Cheng in one week. Discharge diagnosis: Acute CVA -monitored the patient to remote telemetry - Patient on statin, consulted neurology -Initially aspirin was on hold for severe anemia with hemoglobin 5.1, then restarted as her thrombocytosis worsened - CT scan of the head, CTA head/neck obtained in the ER and shows no acute process - MRI showed acute CVA, 2d echo showed preserved EF -Patient is tolerating diet MRI brain: There is a 1.4 cm acute to infarct involving the right centrum semiovale. Additionally, there is a small 5 mm acute infarct along the right parietal cortical region. 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)- myelofibrosis is a possibility - JAK2 mutation study as outpt - abdomen US showed normal spleen -Hematology consulted and recommended to initiate hydroxyurea 500 mg twice daily Symptomatic microcytic anemia with severe iron deficiency -Hemoglobin 5.1 on admission -s/p 2 units of transfusion, ordered stool for occult blood -Received IV iron transfusion Diabetes mellitus type 2 -cont Consistent carb diet, monitor blood glucose with QA CHS and SSI Leukocytosis, likely reactive -Patient is afebrile, repeat CBC in 1 week Hyperlipidemia, continue statin Hypertension, -Continue home meds, BP stable Right thyroid nodule: Normal TSH/T4 -Ordered for thyroid ultrasound -Outpatient follow-up with inflatable buildings laminator -[facility] [place] for DVT prophylaxis Disposition: - TO HOME OR SELFCARE Time spent for discharge: 34 minutes Core Measure Documentation - Palliative Care Palliative Care/ Comfort Measures: Not Applicable - Core Measures Any of the following diagnoses?: none Exam - Physical Exam Narrative exam: GENERAL: well-developed and well-nourished white female lying on bed appeared to be in no discomfort. HEENT: Normocephalic. Atraumatic. No conjunctival congestion or icterus. Patient has moist mucous membranes. NECK: Supple. Trachea midline. CHEST/LUNGS: Clear to auscultated bilaterally, breathing nonlabored. No wheezes crackles or rhonchi. HEART/CARDIOVASCULAR: Regular in rate and rhythm. S1 and S2 positive. ABDOMEN: Abdomen is soft, nontender. Patient has normal bowel sounds. SKIN: There is no rash. Warm and dry. NEURO: No focal motor deficit. Follows command. MUSCULOSKELETAL: No joint effusion or tenderness. EXTRIMITY: No edema, no cyanosis or clubbing. PSYCH: Cooperative. - Constitutional Vitals: Temp Pulse Resp BP Pulse Ox 97.3 F L 72 20 116/57 96 01/20/20 12:16 01/20/20 12:16 01/20/20 12:16 01/20/20 12:16 01/20/20 12:16 Plan Activity: advance as tolerated Weight Bearing Status: Weight Bear as Tolerated Diet: low fat, low salt Additional Instructions: CBC on monday Follow up with: PRIMARY MD ALISON [Primary Care Provider] - 7 Days KATHY CHENG MD [Staff Physician] - 7 Days HAMZAH AGUERO MD [Staff Physician] - 7 Days Prescriptions: AtorvaSTATin [Lipitor] 40 mg PO QHS #30 tablet Aspirin EC [Ecotrin] 325 mg PO QDAY #30 tablet Hydroxyurea 500 mg PO Q12H #60 capsule cephALEXin [Keflex] 500 mg PO Q12HR #6 capsule
--- NOTE | 2020-01-22 12:45 | Ultrasound Report ---
ULTRASOUND THYROID INDICATION / CLINICAL INFORMATION: right thyroid nodules. COMPARISON: CTA neck 01/16/2020 FINDINGS: RIGHT LOBE: Size = 5.1 x 1.6 x 1.5 cm. - Echogenicity/Vascularity: Heterogeneous with increased vascularity. - Nodules < 1 cm: 6 mm solid hypoechoic nodule at the superior pole. 3 mm calcified nodule at the inf erior pole. - Nodules >= 1 cm or Suspicious Nodules: -- NODULE # 1 -- Location: right lower -- Size: 2.2 x 1.1 x 1.9 cm. Average size = 1.7 cm. -- Composition: Solid = 2 points -- Echogenicity: Hyperechoic or Isoechoic = 1 point -- Shape: Jqyne-rfji-gqlg = 0 points -- Margin: Smooth = 0 points -- Echogenic Foci: None = 0 points -- Additional Findings: None. -- ACR TI-RADS Score = 3. -- ACR TI-RADS Category = TR-3 (3 points). LEFT LOBE: Size = 4.8 x 1.2 x 1.6 cm. - Echogenicity/Vascularity: Normal. - Nodules < 1 cm: None. - Nodules >= 1 cm or Suspicious Nodules: None. ISTHMUS: No significant abnormality. Thickness = 0.4 cm. - Nodules < 1 cm: 9 mm solid nodule. - Nodules >= 1 cm or Suspicious Nodules: None. LYMPH NODES: No abnormal lymph nodes. PARATHYROID GLANDS: No abnormal parathyroid gland identified. ADDITIONAL FINDINGS: None. IMPRESSION: 1. Mildly enlarged thyroid with increased vascularity suggesting thyroiditis. 2. 2.2 cm mildly suspicious nodule at the inferior pole of the right lobe. Recommend ultrasound follo w up in 1 year. 3. Few bilateral subcentimeters nodules which do not meet criteria for fine-needle aspiration or furt her follow-up. NOTE: Nodule size based on mean (average) size of 3 dimensions. NOTE: Nodules < 1 cm do not typically require follow-up or FNA unless there are suspicious features ( ALEXIA, 2015) ACR TI-RADS Thyroid Nodule Recommendations TI-RADS 1 (0 points) ----- BENIGN. No Fine Needle Aspirate biopsy (FNA) or follow-up. TI-RADS 2 (1-2 points) -- NOT SUSPICIOUS. No FNA or follow-up. TI-RADS 3 (3 points) ----- MILDLY SUSPICIOUS. Follow up in 1 year if >= 1.5 cm. FNA if >= 2.5 cm. TI-RADS 4 (4-6 points) -- MODERATELY SUSPICIOUS. Follow up in 1 year if >= 1.0 cm. FNA if >= 1.5 cm. TI-RADS 5 (7+ points) --- HIGHLY SUSPICIOUS. Follow up in 1 year if >= 0.5 cm. FNA if >= 1.0 cm. Reference: ACR Thyroid Imaging, Reporting and Data System (TI-RADS): White Paper of the ACR TI-RADS C ommittee. J AM Estephanie Radiol 2017;14:587-595. (Additional recommendations based on [employer] 2015 guidelines.) Signer Name: Carlos Vincent MD Signed: 01/22/2020 12:40 PM Workstation Name: [id number]
== END 2020-01-20 17:32 | disposition home or self-care (01) | DRG 65 ==
LOC: ED 05:38 → OBSVTOIN 07:51 → 4A 07:51
PROVIDERS: ADMIT Internal Medicine; ATTEND Internal Medicine
PROC: 30233N1 Transfusion of Nonautologous Red Blood Cells into Peripheral Vein, Percutaneous Approach (ICD-10-PCS; principal; 2020-01-16)
DX: I63.9 Cerebral infarction, unspecified (principal); E87.1 Hypo-osmolality and hyponatremia; C94.6 Myelodysplastic disease, not elsewhere classified; I16.0 Hypertensive urgency; D64.9 Anemia, unspecified; E87.5 Hyperkalemia; E78.5 Hyperlipidemia, unspecified; E11.9 Type 2 diabetes mellitus without complications; I25.10 Atherosclerotic heart disease of native coronary artery without angina pectoris; E78.00 Pure hypercholesterolemia, unspecified; Z90.49 Acquired absence of other specified parts of digestive tract; D47.3 Essential (hemorrhagic) thrombocythemia; E04.1 Nontoxic single thyroid nodule
CPT/HCPCS: 36415; 70450; 70496; 70498; 70551; 76536; 76705; 80048; 80061; 82270; 82550; 82553; 82607; 82728; 82962; 83550; 84439; 84443; 84484; 85007; 85018; 85025; 85027; 85610; 85670; 85730; 86850; 86900; 86901; 86920; 93005; 93306; 96365; 96366; 96367; 96375; G0378; A9270-GY; J1650; J1815; J2916; J7030; J7040; P9016; Q9967

== ENCOUNTER 2020-01-24 10:44 | Outpatient (CLI) | payer BC ==
[2020-01-24 11:17] LABS: Hemoglobin 9.6 gm/dl (10.1-14.3); Mean Corpuscular HGB Conc 31 % (30-34); Platelet Count 853 K/mm3 (140-440)
[2020-01-24 11:19] LABS: Mean Corpuscular Volume 69 fl (79-97); Red Cell Distribution Width 34.8 % (13.2-15.2)
[2020-01-24 11:42] LABS: Alanine Aminotransferase 14 units/L (7-56); Albumin 4.3 g/dL (3.9-5); BUN/Creatinine Ratio 34; Blood Urea Nitrogen 17 mg/dL (7-17); Calcium 9.3 mg/dL (8.4-10.2); Hemolysis Index 4
== END 2020-01-24 10:45 | disposition home or self-care (01) ==
LOC: LAB 10:44
PROVIDERS: ATTEND Internal Medicine
DX: R53.83 Other fatigue (principal)
CPT/HCPCS: 36415; 80053; 85027

== ENCOUNTER 2020-01-28 13:47 | Outpatient (CLI) | payer BC ==
[2020-01-28 14:32] LABS: Hematocrit 32.9 % (30.3-42.9); Mean Corpuscular HGB Conc 31 % (30-34); Mean Corpuscular Volume 71 fl (79-97); Platelet Count 471 K/mm3 (140-440); Red Blood Count 4.61 M/mm3 (3.65-5.03)
[2020-01-28 15:30] LABS: Total Cells Counted 100
[2020-01-28 15:31] LABS: Anisocytosis 3+; Basophils % (Manual) 0 % (0.0-1.8); Hypochromasia 2+
[2020-01-28 15:32] LABS: Ovalocytes Few; Platelet Estimate Consistent w Auto
== END 2020-01-28 13:48 | disposition home or self-care (01) ==
LOC: LAB 13:47
PROVIDERS: ATTEND Internal Medicine
DX: D47.3 Essential (hemorrhagic) thrombocythemia (principal)
CPT/HCPCS: 36415; 85007; 85025

== ENCOUNTER 2020-02-06 07:05 | Outpatient (CLI) | payer BC ==
[2020-02-06 07:52] LABS: Hematocrit 32.9 % (30.3-42.9); Hemoglobin 10.7 gm/dl (10.1-14.3); Mean Corpuscular HGB Conc 33 % (30-34); Mean Corpuscular Volume 75 fl (79-97); Platelet Count 253 K/mm3 (140-440); Red Blood Count 4.38 M/mm3 (3.65-5.03); Red Cell Distribution Width 37.8 % (13.2-15.2)
[2020-02-06 08:38] LABS: Anisocytosis 3+; Hypochromasia 1+; Tear Drop Cells Rare; Total Cells Counted 100
[2020-02-06 08:39] LABS: Platelet Estimate Consistent w Auto
== END 2020-02-06 07:06 | disposition home or self-care (01) ==
LOC: LAB 07:05
PROVIDERS: ATTEND Internal Medicine
DX: D47.3 Essential (hemorrhagic) thrombocythemia (principal)
CPT/HCPCS: 36415; 85007; 85025

== ENCOUNTER 2020-02-14 07:07 | Outpatient (CLI) | payer BC ==
[2020-02-14 07:40] LABS: Hematocrit 31.9 % (30.3-42.9); Hemoglobin 10.4 gm/dl (10.1-14.3); Mean Corpuscular HGB Conc 33 % (30-34); Mean Corpuscular Volume 79 fl (79-97); Platelet Count 168 K/mm3 (140-440); Red Blood Count 4.03 M/mm3 (3.65-5.03)
[2020-02-14 07:43] LABS: Red Cell Distribution Width > 40.0 % (13.2-15.2)
== END 2020-02-14 07:08 | disposition home or self-care (01) ==
LOC: LAB 07:07
PROVIDERS: ATTEND Internal Medicine Hematology & Oncology
DX: E61.1 Iron deficiency (principal)
CPT/HCPCS: 36415; 85027

== ENCOUNTER 2020-02-28 07:31 | Outpatient (CLI) | payer BC ==
[2020-02-28 08:05] LABS: Hematocrit 31.4 % (30.3-42.9); Hemoglobin 10.2 gm/dl (10.1-14.3); Mean Corpuscular HGB Conc 32 % (30-34); Mean Corpuscular Volume 85 fl (79-97); Platelet Count 352 K/mm3 (140-440); Red Blood Count 3.67 M/mm3 (3.65-5.03)
[2020-02-28 08:11] LABS: Red Cell Distribution Width > 40.0 % (13.2-15.2)
[2020-02-28 09:39] LABS: Basophils % (Manual) 0 % (0.0-1.8); Total Cells Counted 100
[2020-02-28 09:40] LABS: Anisocytosis 3+; Platelet Estimate Consistent w Auto; Tear Drop Cells Few
== END 2020-02-28 07:32 | disposition home or self-care (01) ==
LOC: LAB 07:31
PROVIDERS: ATTEND Internal Medicine
DX: D47.3 Essential (hemorrhagic) thrombocythemia (principal)
CPT/HCPCS: 36415; 85007; 85025

== ENCOUNTER 2020-03-05 08:08 | Outpatient (CLI) | payer BC ==
[2020-03-05 08:27] LABS: Hematocrit 31.2 % (30.3-42.9); Hemoglobin 10.4 gm/dl (10.1-14.3); Mean Corpuscular HGB Conc 33 % (30-34); Mean Corpuscular Volume 88 fl (79-97); Platelet Count 134 K/mm3 (140-440); Red Blood Count 3.54 M/mm3 (3.65-5.03)
[2020-03-05 08:31] LABS: Red Cell Distribution Width > 40.0 % (13.2-15.2)
[2020-03-05 09:56] LABS: Anisocytosis 3+; Eosinophils % (Manual) 0 % (0.0-4.3); Total Cells Counted 100
[2020-03-05 09:59] LABS: Macrocytosis Few; Platelet Estimate Consistent w Auto; Tear Drop Cells Few
== END 2020-03-05 08:09 | disposition home or self-care (01) ==
LOC: LAB 08:08
PROVIDERS: ATTEND Internal Medicine
DX: D47.3 Essential (hemorrhagic) thrombocythemia (principal)
CPT/HCPCS: 36415; 85007; 85025

== ENCOUNTER 2020-03-20 05:58 | Outpatient (CLI) | payer BC ==
[2020-03-20 07:47] LABS: Hematocrit 31.2 % (30.3-42.9); Hemoglobin 10.4 gm/dl (10.1-14.3); Mean Corpuscular HGB Conc 33 % (30-34); Mean Corpuscular Volume 95 fl (79-97); Platelet Count 578 K/mm3 (140-440); Red Blood Count 3.29 M/mm3 (3.65-5.03)
[2020-03-20 07:49] LABS: Red Cell Distribution Width > 40.0 % (13.2-15.2)
== END 2020-03-20 05:59 | disposition home or self-care (01) ==
LOC: LAB 05:58
PROVIDERS: ATTEND Internal Medicine Hematology & Oncology
DX: D47.3 Essential (hemorrhagic) thrombocythemia (principal)
CPT/HCPCS: 36415; 85027

== ENCOUNTER 2020-03-27 07:37 | Outpatient (CLI) | payer BC ==
[2020-03-27 08:10] LABS: Hematocrit 34.3 % (30.3-42.9); Hemoglobin 11.6 gm/dl (10.1-14.3); Mean Corpuscular HGB Conc 34 % (30-34); Mean Corpuscular Volume 97 fl (79-97); Platelet Count 361 K/mm3 (140-440); Red Blood Count 3.55 M/mm3 (3.65-5.03)
== END 2020-03-27 07:38 | disposition home or self-care (01) ==
LOC: LAB 07:37
PROVIDERS: ATTEND Internal Medicine Hematology & Oncology
DX: D47.3 Essential (hemorrhagic) thrombocythemia (principal)
CPT/HCPCS: 36415; 85027

== ENCOUNTER 2020-04-03 07:33 | Outpatient (CLI) | payer BC ==
[2020-04-03 08:03] LABS: Hematocrit 33.9 % (30.3-42.9); Hemoglobin 11.9 gm/dl (10.1-14.3); Mean Corpuscular HGB Conc 35 % (30-34); Mean Corpuscular Volume 100 fl (79-97); Platelet Count 259 K/mm3 (140-440); Red Blood Count 3.37 M/mm3 (3.65-5.03)
[2020-04-03 08:04] LABS: Red Cell Distribution Width 34.9 % (13.2-15.2)
== END 2020-04-03 07:34 | disposition home or self-care (01) ==
LOC: LAB 07:33
PROVIDERS: ATTEND Internal Medicine Hematology & Oncology
DX: D47.3 Essential (hemorrhagic) thrombocythemia (principal)
CPT/HCPCS: 36415; 85027

== ENCOUNTER 2020-04-16 07:41 | Outpatient (CLI) | payer BC ==
[2020-04-16 08:14] LABS: Hematocrit 38.6 % (30.3-42.9); Mean Corpuscular HGB Conc 34 % (30-34); Mean Corpuscular Volume 104 fl (79-97); Platelet Count 438 K/mm3 (140-440); Red Blood Count 3.71 M/mm3 (3.65-5.03)
[2020-04-16 08:26] LABS: Red Cell Distribution Width 23.8 % (13.2-15.2)
== END 2020-04-16 07:42 | disposition home or self-care (01) ==
LOC: LAB 07:41
PROVIDERS: ATTEND Internal Medicine Hematology & Oncology
DX: D47.3 Essential (hemorrhagic) thrombocythemia (principal)
CPT/HCPCS: 36415; 85027

== ENCOUNTER 2020-04-30 07:34 | Outpatient (CLI) | payer BC ==
[2020-04-30 08:00] LABS: Hemoglobin 13.9 gm/dl (10.1-14.3); Mean Corpuscular HGB Conc 36 % (30-34); Mean Corpuscular Volume 106 fl (79-97); Platelet Count 307 K/mm3 (140-440); Red Blood Count 3.67 M/mm3 (3.65-5.03)
[2020-04-30 08:04] LABS: Red Cell Distribution Width 20.4 % (13.2-15.2)
== END 2020-04-30 07:35 | disposition home or self-care (01) ==
LOC: LAB 07:34
PROVIDERS: ATTEND Internal Medicine Hematology & Oncology
DX: D47.3 Essential (hemorrhagic) thrombocythemia (principal)
CPT/HCPCS: 36415; 85027

== ENCOUNTER 2020-05-14 07:40 | Outpatient (CLI) | payer BC ==
[2020-05-14 07:57] LABS: Hematocrit 37.9 % (30.3-42.9); Hemoglobin 13.1 gm/dl (10.1-14.3); Mean Corpuscular HGB Conc 35 % (30-34); Mean Corpuscular Volume 108 fl (79-97); Platelet Count 435 K/mm3 (140-440); Red Cell Distribution Width 19.1 % (13.2-15.2)
== END 2020-05-14 07:41 | disposition home or self-care (01) ==
LOC: LAB 07:40
PROVIDERS: ATTEND Internal Medicine Hematology & Oncology
DX: D47.3 Essential (hemorrhagic) thrombocythemia (principal)
CPT/HCPCS: 36415; 85027

== ENCOUNTER 2020-05-28 07:34 | Outpatient (CLI) | payer BC ==
[2020-05-28 08:08] LABS: Basophils % (Auto) 0.5 % (0.0-1.8); Eosinophils % (Auto) 0.7 % (0.0-4.3); Hematocrit 34.5 % (30.3-42.9); Lymphocytes # (Auto) 2.4 K/mm3 (1.2-5.4); Lymphocytes % (Auto) 41.6 % (13.4-35.0); Mean Corpuscular HGB Conc 35 % (30-34); Mean Corpuscular Volume 114 fl (79-97); Monocytes # (Auto) 0.5 K/mm3 (0.0-0.8); Monocytes % (Auto) 8.8 % (0.0-7.3); Platelet Count 340 K/mm3 (140-440); Red Blood Count 3.04 M/mm3 (3.65-5.03); Red Cell Distribution Width 18.6 % (13.2-15.2)
== END 2020-05-28 07:35 | disposition home or self-care (01) ==
LOC: LAB 07:34
PROVIDERS: ATTEND Internal Medicine Hematology & Oncology
DX: D47.3 Essential (hemorrhagic) thrombocythemia (principal); D47.1 Chronic myeloproliferative disease
CPT/HCPCS: 36415; 85025

== ENCOUNTER 2020-06-25 06:01 | Outpatient (CLI) | payer BC ==
[2020-06-25 07:36] LABS: Mean Corpuscular HGB Conc 37 % (30-34); Platelet Count 285 K/mm3 (140-440); Red Blood Count 2.76 M/mm3 (3.65-5.03)
[2020-06-25 07:38] LABS: Hemoglobin 12.1 gm/dl (10.1-14.3); Mean Corpuscular Volume 120 fl (79-97); Red Cell Distribution Width 20.5 % (13.2-15.2)
== END 2020-06-25 06:02 | disposition home or self-care (01) ==
LOC: LAB 06:01
PROVIDERS: ATTEND Internal Medicine Hematology & Oncology
DX: D47.3 Essential (hemorrhagic) thrombocythemia (principal); D47.1 Chronic myeloproliferative disease
CPT/HCPCS: 36415; 85027

== ENCOUNTER 2020-07-31 07:14 | Outpatient (CLI) | payer BC ==
[2020-07-31 07:46] LABS: Hematocrit 32.8 % (30.3-42.9); Hemoglobin 11.6 gm/dl (10.1-14.3); Mean Corpuscular HGB Conc 36 % (30-34); Platelet Count 253 K/mm3 (140-440); Red Blood Count 2.55 M/mm3 (3.65-5.03); Red Cell Distribution Width 16.1 % (13.2-15.2)
[2020-07-31 07:49] LABS: Mean Corpuscular Volume 129 fl (79-97)
[2020-07-31 08:16] LABS: % Iron Saturation 25.77 %
== END 2020-07-31 07:15 | disposition home or self-care (01) ==
LOC: LAB 07:14
PROVIDERS: ATTEND Internal Medicine Hematology & Oncology
DX: D50.9 Iron deficiency anemia, unspecified (principal); D47.3 Essential (hemorrhagic) thrombocythemia; E61.1 Iron deficiency
CPT/HCPCS: 36415; 82728; 83550; 85027

== ENCOUNTER 2020-09-24 07:12 | Outpatient (CLI) | payer BC ==
[2020-09-24 07:35] LABS: Basophils % (Auto) 0.3 % (0.0-1.8); Eosinophils % (Auto) 0.9 % (0.0-4.3); Hematocrit 30.7 % (30.3-42.9); Hemoglobin 10.9 gm/dl (10.1-14.3); Lymphocytes # (Auto) 1.7 K/mm3 (1.2-5.4); Lymphocytes % (Auto) 49.1 % (13.4-35.0); Mean Corpuscular HGB Conc 36 % (30-34); Monocytes # (Auto) 0.3 K/mm3 (0.0-0.8); Monocytes % (Auto) 7.5 % (0.0-7.3); Platelet Count 174 K/mm3 (140-440); Red Cell Distribution Width 14.7 % (13.2-15.2)
[2020-09-24 07:39] LABS: Mean Corpuscular Volume 133 fl (79-97)
== END 2020-09-24 07:13 | disposition home or self-care (01) ==
LOC: LAB 07:12
PROVIDERS: ATTEND Internal Medicine Hematology & Oncology
DX: D47.3 Essential (hemorrhagic) thrombocythemia (principal)
CPT/HCPCS: 36415; 85025

== ENCOUNTER 2020-10-08 07:38 | Outpatient (CLI) | payer BC ==
[2020-10-08 07:56] LABS: Hematocrit 29.6 % (30.3-42.9); Hemoglobin 10.4 gm/dl (10.1-14.3); Mean Corpuscular HGB Conc 35 % (30-34); Platelet Count 254 K/mm3 (140-440); Red Blood Count 2.22 M/mm3 (3.65-5.03); Red Cell Distribution Width 15.3 % (13.2-15.2)
[2020-10-08 07:59] LABS: Mean Corpuscular Volume 134 fl (79-97)
== END 2020-10-08 07:39 | disposition home or self-care (01) ==
LOC: LAB 07:38
PROVIDERS: ATTEND Internal Medicine Hematology & Oncology
DX: D47.3 Essential (hemorrhagic) thrombocythemia (principal)
CPT/HCPCS: 36415; 85027

== ENCOUNTER 2020-11-04 07:09 | Outpatient (CLI) | payer BC | END 2020-11-04 07:10 | disposition home or self-care (01) | LOC: LAB 07:09 | PROVIDERS: ATTEND Internal Medicine Hematology & Oncology | DX: E13.65 Other specified diabetes mellitus with hyperglycemia (principal); G45.9 Transient cerebral ischemic attack, unspecified; D64.9 Anemia, unspecified; I16.0 Hypertensive urgency | CPT/HCPCS: 36415; 83036 ==

== ENCOUNTER 2020-11-16 07:17 | Outpatient (CLI) | payer BC ==
[2020-11-16] MEDS ORDERED: HYDROmorphone 1 MG/1 ML INJ IV NR (08:05)
[2020-11-16] MEDS ORDERED: ONDANSETRON 4 MG/2 ML INJ IV ONE (08:05)
[2020-11-16 08:27] LABS: Basophils % (Auto) 0.2 % (0.0-1.8); Eosinophils % (Auto) 0.8 % (0.0-4.3); Hematocrit 30.6 % (30.3-42.9); Lymphocytes # (Auto) 1.5 K/mm3 (1.2-5.4); Mean Corpuscular HGB Conc 36 % (30-34); Monocytes # (Auto) 0.3 K/mm3 (0.0-0.8); Monocytes % (Auto) 9.7 % (0.0-7.3); Platelet Count 236 K/mm3 (140-440); Red Blood Count 2.26 M/mm3 (3.65-5.03); Red Cell Distribution Width 14.3 % (13.2-15.2)
[2020-11-16 08:37] LABS: INR 0.91 (0.87-1.13)
[2020-11-16 08:38] LABS: Partial Thromboplastin Time 27.5 Sec. (24.2-36.6)
[2020-11-16 08:46] LABS: BUN/Creatinine Ratio 22; Blood Urea Nitrogen 13 mg/dL (7-17); Calcium 9.5 mg/dL (8.4-10.2); Hemolysis Index 26
[2020-11-16] MEDS ORDERED: SODIUM CHLORIDE 0.9% 500 ML 500 ML IV SCH (09:00)
[2020-11-16] MEDS ORDERED: LIDOCAINE (1%) 10 MG/1 ML VIAL 20 ML MDV ONE (09:24)
[2020-11-16 09:55] LABS: Mean Corpuscular Volume 135 fl (79-97)
--- NOTE | 2020-11-16 10:42 | Cat Scan Report ---
CT-GUIDED BONE MARROW ASPIRATION AND BIOPSY INDICATION : Chronic myeloproliferative disorder PROCEDURE: The risks (including but not limited to bleeding and infection) and benefits were explain ed to the patient and informed consent was obtained. All CT examinations performed at this facility utilize dose modulation, iterative reconstruction or weight-based dosing, when appropriate, to reduce radiation dose to as low as reasonably achievable. A time out procedure was performed. The procedu re site was prepped and draped in the usual sterile fashion and lidocaine was used for local anesthes ia. Under CT guidance, the right posterior iliac wing was selected for biopsy. An 11 gauge needle was ad vanced to the posterior margin of the iliac wing, cortex breached, and 4.5 mL bone marrow aspirate ob tained. The needle was then advanced and a bone marrow biopsy was obtained measuring approximately 2 cm. Samples were given directly to the cad technician who was present during the exam. The patient tolerated the procedure well with no complications. IMPRESSION: Technically successful bone marrow aspirate and biopsy. Signer Name: Bo Phillips Jr, MD Signed: 11/16/2020 10:38 AM Workstation Name: [id number]
[2020-11-16] MEDS ORDERED: HYDROmorphone 1 MG/1 ML INJ IV SCH (11:00)
[2020-11-16 11:14] VITALS: BP 112/51
== END 2020-11-16 11:34 | disposition home or self-care (01) ==
LOC: CATHLABREC 07:17 → CT 07:17 → CATHLABREC 11:34
PROVIDERS: ATTEND Internal Medicine Hematology & Oncology
DX: D47.1 Chronic myeloproliferative disease (principal); D47.3 Essential (hemorrhagic) thrombocythemia; E78.00 Pure hypercholesterolemia, unspecified; K21.9 Gastro-esophageal reflux disease without esophagitis; M19.90 Unspecified osteoarthritis, unspecified site; I16.0 Hypertensive urgency; Z86.73 Personal history of transient ischemic attack (TIA), and cerebral infarction without residual deficits; Z79.82 Long term (current) use of aspirin; Z79.899 Other long term (current) drug therapy; Z98.890 Other specified postprocedural states; Z87.891 Personal history of nicotine dependence
CPT/HCPCS: 36415; 38222; 77012; 80048; 85007; 85025; 85097; 85610; 85730; 88161; 88305; 88311; 88313; 88333; J1170; J2405; J7040; 38221; 88184; 88185; 88230; 88291

== ENCOUNTER 2020-12-11 07:09 | Outpatient (CLI) | payer BC ==
[2020-12-11 07:49] LABS: Basophils % (Auto) 0.2 % (0.0-1.8); Eosinophils % (Auto) 0.4 % (0.0-4.3); Hematocrit 30.4 % (30.3-42.9); Hemoglobin 10.7 gm/dl (10.1-14.3); Lymphocytes # (Auto) 2.1 K/mm3 (1.2-5.4); Lymphocytes % (Auto) 55.1 % (13.4-35.0); Mean Corpuscular HGB Conc 35 % (30-34); Monocytes # (Auto) 0.3 K/mm3 (0.0-0.8); Monocytes % (Auto) 7.2 % (0.0-7.3); Platelet Count 159 K/mm3 (140-440); Red Blood Count 2.23 M/mm3 (3.65-5.03); Red Cell Distribution Width 13.6 % (13.2-15.2)
[2020-12-11 08:04] LABS: Mean Corpuscular Volume 136 fl (79-97)
[2020-12-11 08:14] LABS: % Iron Saturation 24.67 %
== END 2020-12-11 07:10 | disposition home or self-care (01) ==
LOC: LAB 07:09
PROVIDERS: ATTEND Internal Medicine Hematology & Oncology
DX: D47.3 Essential (hemorrhagic) thrombocythemia (principal); D47.1 Chronic myeloproliferative disease
CPT/HCPCS: 36415; 82728; 83550; 85025

== ENCOUNTER 2021-01-19 07:09 | Outpatient (CLI) | payer BC ==
[2021-01-19 07:28] LABS: Hematocrit 33.2 % (30.3-42.9); Hemoglobin 11.5 gm/dl (10.1-14.3); Mean Corpuscular HGB Conc 35 % (30-34); Platelet Count 314 K/mm3 (140-440); Red Blood Count 2.56 M/mm3 (3.65-5.03); Red Cell Distribution Width 12.8 % (13.2-15.2)
[2021-01-19 07:30] LABS: Mean Corpuscular Volume 130 fl (79-97)
== END 2021-01-19 07:10 | disposition home or self-care (01) ==
LOC: LAB 07:09
PROVIDERS: ATTEND Internal Medicine Hematology & Oncology
DX: D47.3 Essential (hemorrhagic) thrombocythemia (principal)
CPT/HCPCS: 36415; 85027

== ENCOUNTER 2021-02-23 06:57 | Outpatient (CLI) | payer BC ==
[2021-02-23 07:36] LABS: Hematocrit 33.4 % (30.3-42.9); Hemoglobin 11.1 gm/dl (10.1-14.3); Mean Corpuscular HGB Conc 33 % (30-34); Platelet Count 321 K/mm3 (140-440); Red Blood Count 2.72 M/mm3 (3.65-5.03); Red Cell Distribution Width 12.5 % (13.2-15.2)
[2021-02-23 07:43] LABS: Mean Corpuscular Volume 123 fl (79-97)
== END 2021-02-23 06:58 | disposition home or self-care (01) ==
LOC: LAB 06:57
PROVIDERS: ATTEND Internal Medicine Hematology & Oncology
DX: D47.3 Essential (hemorrhagic) thrombocythemia (principal)
CPT/HCPCS: 36415; 85027

== ENCOUNTER 2021-04-06 07:11 | Outpatient (CLI) | payer BC ==
[2021-04-06 07:52] LABS: Hematocrit 33.7 % (30.3-42.9); Hemoglobin 11.4 gm/dl (10.1-14.3); Mean Corpuscular HGB Conc 34 % (30-34); Mean Corpuscular Volume 114 fl (79-97); Platelet Count 354 K/mm3 (140-440); Red Blood Count 2.95 M/mm3 (3.65-5.03); Red Cell Distribution Width 12.9 % (13.2-15.2)
[2021-04-06 08:21] LABS: Alanine Aminotransferase 25 units/L (7-56); Albumin 4.3 g/dL (3.9-5); Blood Urea Nitrogen 15 mg/dL (7-17); Calcium 9.2 mg/dL (8.4-10.2); Chol/HDL Ratio 3.46 %; HDL Cholesterol 56 mg/dL (40-59); Hemolysis Index 3; LDL Cholesterol,Direct 132 mg/dL (50-130)
[2021-04-06 08:24] LABS: BUN/Creatinine Ratio 25
== END 2021-04-06 07:12 | disposition home or self-care (01) ==
LOC: LAB 07:11
PROVIDERS: ATTEND Internal Medicine
DX: I10 Essential (primary) hypertension (principal); R53.83 Other fatigue; E11.65 Type 2 diabetes mellitus with hyperglycemia; E78.2 Mixed hyperlipidemia
CPT/HCPCS: 36415; 80053; 80061; 83036; 84443; 85027

== ENCOUNTER 2021-07-13 07:10 | Outpatient (CLI) | payer BC ==
[2021-07-13 07:26] LABS: Basophils % (Auto) 0.5 % (0.0-1.8); Eosinophils # (Auto) 0.1 K/mm3 (0.0-0.4); Eosinophils % (Auto) 0.9 % (0.0-4.3); Hematocrit 30.4 % (30.3-42.9); Hemoglobin 10.1 gm/dl (10.1-14.3); Lymphocytes % (Auto) 29.5 % (13.4-35.0); Mean Corpuscular HGB Conc 33 % (30-34); Mean Corpuscular Volume 106 fl (79-97); Monocytes # (Auto) 0.7 K/mm3 (0.0-0.8); Monocytes % (Auto) 11.1 % (0.0-7.3); Platelet Count 289 K/mm3 (140-440); Red Blood Count 2.87 M/mm3 (3.65-5.03); Red Cell Distribution Width 15.1 % (13.2-15.2)
== END 2021-07-13 07:11 | disposition home or self-care (01) ==
LOC: LAB 07:10
PROVIDERS: ATTEND Internal Medicine Hematology & Oncology
DX: D47.3 Essential (hemorrhagic) thrombocythemia (principal)
CPT/HCPCS: 36415; 85025

== ENCOUNTER 2021-07-16 07:09 | Outpatient (CLI) | payer BC ==
[2021-07-16 07:29] LABS: Hematocrit 27.7 % (30.3-42.9); Hemoglobin 9.2 gm/dl (10.1-14.3); Mean Corpuscular HGB Conc 33 % (30-34); Mean Corpuscular Volume 107 fl (79-97); Platelet Count 146 K/mm3 (140-440); Red Blood Count 2.59 M/mm3 (3.65-5.03); Red Cell Distribution Width 15.6 % (13.2-15.2)
== END 2021-07-16 07:10 | disposition home or self-care (01) ==
LOC: LAB 07:09
PROVIDERS: ATTEND Internal Medicine Hematology & Oncology
DX: D47.3 Essential (hemorrhagic) thrombocythemia (principal)
CPT/HCPCS: 36415; 85027

== ENCOUNTER 2021-07-23 07:16 | Outpatient (CLI) | payer BC ==
[2021-07-23 07:41] LABS: Hematocrit 29.6 % (30.3-42.9); Hemoglobin 10.1 gm/dl (10.1-14.3); Mean Corpuscular HGB Conc 34 % (30-34); Mean Corpuscular Volume 106 fl (79-97); Platelet Count 422 K/mm3 (140-440); Red Blood Count 2.79 M/mm3 (3.65-5.03); Red Cell Distribution Width 16.7 % (13.2-15.2)
== END 2021-07-23 07:17 | disposition home or self-care (01) ==
LOC: LAB 07:16
PROVIDERS: ATTEND Internal Medicine Hematology & Oncology
DX: D47.3 Essential (hemorrhagic) thrombocythemia (principal)
CPT/HCPCS: 36415; 85027

== ENCOUNTER 2021-07-30 07:06 | Outpatient (CLI) | payer BC ==
[2021-07-30 07:32] LABS: Hematocrit 27.6 % (30.3-42.9); Hemoglobin 9.1 gm/dl (10.1-14.3); Mean Corpuscular HGB Conc 33 % (30-34); Mean Corpuscular Volume 105 fl (79-97); Platelet Count 585 K/mm3 (140-440); Red Blood Count 2.62 M/mm3 (3.65-5.03); Red Cell Distribution Width 16.8 % (13.2-15.2)
== END 2021-07-30 07:07 | disposition home or self-care (01) ==
LOC: LAB 07:06
PROVIDERS: ATTEND Internal Medicine Hematology & Oncology
DX: D47.3 Essential (hemorrhagic) thrombocythemia (principal)
CPT/HCPCS: 36415; 85027

== ENCOUNTER 2021-08-06 07:13 | Outpatient (CLI) | payer BC ==
[2021-08-06 07:33] LABS: Hematocrit 29.2 % (30.3-42.9); Hemoglobin 9.5 gm/dl (10.1-14.3); Mean Corpuscular HGB Conc 33 % (30-34); Mean Corpuscular Volume 107 fl (79-97); Platelet Count 203 K/mm3 (140-440); Red Blood Count 2.72 M/mm3 (3.65-5.03); Red Cell Distribution Width 17.3 % (13.2-15.2)
== END 2021-08-06 07:14 | disposition home or self-care (01) ==
LOC: LAB 07:13
PROVIDERS: ATTEND Internal Medicine Hematology & Oncology
DX: D47.3 Essential (hemorrhagic) thrombocythemia (principal)
CPT/HCPCS: 36415; 85027

== ENCOUNTER 2021-09-10 06:48 | Outpatient (CLI) | payer BC ==
[2021-09-10 07:20] LABS: Hematocrit 27.4 % (30.3-42.9); Hemoglobin 8.9 gm/dl (10.1-14.3); Mean Corpuscular HGB Conc 32 % (30-34); Mean Corpuscular Volume 108 fl (79-97); Platelet Count 425 K/mm3 (140-440); Red Blood Count 2.53 M/mm3 (3.65-5.03)
[2021-09-10 07:32] LABS: Red Cell Distribution Width 22.5 % (13.2-15.2)
== END 2021-09-10 06:49 | disposition home or self-care (01) ==
LOC: LAB 06:48
PROVIDERS: ATTEND Internal Medicine Hematology & Oncology
DX: D47.3 Essential (hemorrhagic) thrombocythemia (principal)
CPT/HCPCS: 36415; 85027

== ENCOUNTER 2021-10-01 01:02 | Observation (INO) | payer BC ==
--- NOTE | 2021-10-01 01:40 | Cat Scan Report ---
CT HEAD WITHOUT CONTRAST INDICATION / CLINICAL INFORMATION: Stroke symptoms. TECHNIQUE: CT head was performed without administration of intravenous contrast. All CT scans at this location are performed using CT dose reduction for ALARA by means of automated exposure control. COMPARISON: CT head 01/16/2020 FINDINGS: CEREBRAL HEMISPHERES: Generalized atrophy and bilateral regions of periventricular white matter hypoa ttenuation compatible with microvascular ischemia are demonstrated. No midline shift. Basal cisterns patent. HEMORRHAGE: None. CEREBELLUM / BRAINSTEM: No significant abnormality. ORBITS: No significant abnormality. SOFT TISSUES: No significant abnormality. SKULL: No significant abnormality. PARANASAL SINUSES / MASTOID AIR CELLS: Normal as visualized. ADDITIONAL FINDINGS: None. IMPRESSION: 1. No acute intracranial abnormality. Signer Name: Ashish Martin II, MD Signed: 10/01/2021 1:36 AM Workstation Name: [id number]
[2021-10-01 01:50] LABS: Basophils # (Auto) 0.1 K/mm3 (0.0-0.1); Basophils % (Auto) 0.7 % (0.0-1.8); Eosinophils # (Auto) 0.1 K/mm3 (0.0-0.4); Eosinophils % (Auto) 1.3 % (0.0-4.3); Hemoglobin 8.9 gm/dl (10.1-14.3); Lymphocytes # (Auto) 1.9 K/mm3 (1.2-5.4); Lymphocytes % (Auto) 22.9 % (13.4-35.0); Mean Corpuscular HGB Conc 32 % (30-34); Mean Corpuscular Volume 105 fl (79-97); Monocytes # (Auto) 0.9 K/mm3 (0.0-0.8); Monocytes % (Auto) 10.6 % (0.0-7.3); Platelet Count 472 K/mm3 (140-440); Red Blood Count 2.68 M/mm3 (3.65-5.03)
[2021-10-01 01:51] LABS: Red Cell Distribution Width 21.9 % (13.2-15.2)
[2021-10-01 02:03] LABS: INR 0.91 (0.87-1.13); Partial Thromboplastin Time 30.1 Sec. (24.2-36.6)
[2021-10-01 02:08] LABS: Blood Urea Nitrogen 11 mg/dL (7-17); Calcium 8.8 mg/dL (8.4-10.2); Hemolysis Index 3
--- NOTE | 2021-10-01 02:16 | Consultation ---
History of Present Illness History of present illness: [facility] Consult Note # Demographics Consult Type: Acute Stroke Level 1 (0-4.5 hrs) Patient Location: Emergency Room First Name: Flaca Last Name: James Date of : 1960 Age: 61 Gender: Female Facility: [facility] Time of Initial Page (): 10/01/2021, 01:08 Time of Return Call (): 10/01/2021, 01:08 # HPI Chief Complaint: confusion speech changes History: 61F with prior stroke, essential thrombocytosis presents with word finding difficulties and feeling confused. Appears weak on the left side. Was having trouble completing sentences. Symptoms noted at 0050; last spoke to someone normally at approximately 0000. On ASA. Platelets were 400K on last check; on hydroxychloroquine. # Scores Time of exam and NIHSS (): 10/01/2021, 01:10 Level of Consciousness 1a: [0] = Alert; keenly responsive LOC Questions 1b: [1] = Answers one correctly LOC Commands 1c: [0] = Performs both tasks correctly Best Gaze 2: [0] = Normal Visual 3: [0] = No visual loss Facial Palsy 4: [0] = Normal symmetrical movements Motor Arm Left 5a: [0] = No drift Motor Arm Right 5b: [0] = No drift Motor Leg Left 6a: [0] = No drift Motor Leg Right 6b: [0] = No drift Limb Ataxia 7: [0] = Absent Sensory 8: [0] = Normal Best Language 9: [1] = Vgps-cn-ozxucert aphasia Dysarthria 10: [0] = Normal Extinction and Inattention 11: [0] = No abnormality NIHSS Total: 2 # Data Time Head CT personally read by me (): 10/01/2021, 01:[address]: no bleed preliminarily reviewed by me, please refer to radiology read for official reading # Assessment Impression: Ischemic Stroke (Acute) # Plan Thrombolytic/Intervention: NOT IV Thrombolysis or IA Intervention candidate Thrombolytic Exclusion (< 3 hour window): non-disabling deficit Intraarterial Exclusion: non-disabling Target Blood Pressure: SBP < 220 DBP < 105 Labs: hemoglobin A1c lipid panel Medication: ASA 325 Plavix 300 Atorvastatin 80 DVT Prophylaxis: SCD chemical DVT prophylaxis Other: consult on-site neurology service for full work-up and evaluation recommendations LDL < 70 permissive hypertension telemetry monitoring I have discussed my recommendations with the referring provider Disposition: admit # Logistics Telemedicine: Interactive 2 way audio and visual telecommunication technology was utilized during this visit Electronically signed at 10/01/2021 02:16 (Eastern Time) by Jake Kemp MD Medications and Allergies Allergies Allergy/AdvReac Type Severity Reaction Status Date / Time No Known Allergies Allergy Verified 10/26/17 06:30 Home Medications Medication Instructions Recorded Confirmed Last Taken Type Omeprazole 40 mg PO QDAY 01/16/20 11/16/20 11/16/20 08:31 History 40 mg atenoloL [Tenormin] 25 mg PO DAILY 01/16/20 11/16/20 11/15/20 History 25 mg Aspirin EC [Ecotrin] 325 mg PO QDAY #30 tablet 01/20/20 11/16/20 11/15/20 Rx 325 mg AtorvaSTATin [Lipitor] 40 mg PO QHS #30 tablet 01/20/20 11/16/20 11/15/20 Rx 40 mg Hydroxyurea 500 mg PO Q12H #60 capsule 01/20/20 11/16/20 11/15/20 Rx 500 mg Sitagliptin Phosphate [Januvia] 100 mg PO DAILY 11/16/20 11/16/20 11/15/20 His tory 100 mg Results - Laboratory Findings CBC and BMP: 10/01/21 01:31 10/01/21 01:31 Abnormal Lab Findings: Abnormal Labs 10/01/21 01:31 RBC 2.68 L Hgb 8.9 L Hct 28.0 L MCV 105 H MCH 33 H RDW 21.9 H Plt Count 472 H [place] % (Auto) 10.6 H [place] # (Auto) 0.9 H
[2021-10-01 02:18] LABS: BUN/Creatinine Ratio 16; Creatine Kinase MB < 1.0 ng/mL (0.0-4.0)
[2021-10-01 03:01] LABS: Thrombin Time 14.9 Sec. (15.1-19.6)
--- NOTE | 2021-10-01 03:02 | Emergency Department Report ---
ED Neuro Deficit HPI - General Stated Complaint: DIFFICULTY SPEAKING Time Seen by Provider: 10/01/21 01:05 Source: patient - History of Present Illness Initial Comments: Patient is 61 years old female with history of prior stroke, hypertension, diabetes and essential thrombocytosis. 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 This is a started approximately midnight. Patient denied any weakness, numbness or tingling sensation. Stroke protocol immediately initiated and patient moved to CT for stat CT brain without contras t. Stroke telemetry neurologist immediately consulted and patient examined by Dr. Kemp. Patient symptoms rapidly improving. Patient is not a tPA candidate. Dr. Kemp. -: Sudden Location: speech Presenting Symptoms: Present: Unable to Speak Clearly Place: work Severity: moderate Context: sudden onset Associated Symptoms: confusion - Related Data Home Medications: Home Medications Medication Instructions Recorded Confirmed Last Taken Omeprazole 40 mg PO QDAY 01/16/20 11/16/20 11/16/20 08:31 40 mg atenoloL [Tenormin] 25 mg PO DAILY 01/16/20 11/16/20 11/15/20 25 mg Sitagliptin Phosphate [Januvia] 100 mg PO DAILY 11/16/20 11/16/20 11/15/20 100 mg Previous Rx's Medication Instructions Recorded Last Taken Type Aspirin EC [Ecotrin] 325 mg PO QDAY #30 tablet 01/20/20 11/15/20 Rx 325 mg AtorvaSTATin [Lipitor] 40 mg PO QHS #30 tablet 01/20/20 11/15/20 Rx 40 mg Hydroxyurea 500 mg PO Q12H #60 capsule 01/20/20 11/15/20 Rx 500 mg Allergies/Adverse Reactions: Allergies Allergy/AdvReac Type Severity Reaction Status Date / Time No Known Allergies Allergy Verified 10/26/17 06:30 ED Review of Systems ROS: Stated complaint: DIFFICULTY SPEAKING Other details as noted in HPI Comment: All other systems reviewed and negative Constitutional: denies: chills, fever Respiratory: denies: cough, shortness of breath, SOB with exertion, SOB at rest Cardiovascular: denies: chest pain, palpitations Gastrointestinal: denies: abdominal pain, nausea, vomiting Musculoskeletal: denies: back pain Neurological: confusion. denies: headache, weakness, numbness, paresthesias, abnormal gait ED Past Medical Hx - Past Medical History Hx Diabetes: Yes Hx GERD: Yes Hx Arthritis: Yes Additional medical history: High cholesterol, Mitral valve prolapse - Surgical History Hx Cholecystectomy: Yes Additional Surgical History: Rt heel - Social History Smoking Status: Former Smoker - Medications Home Medications: Home Medications Medication Instructions Recorded Confirmed Last Taken Type Omeprazole 40 mg PO QDAY 01/16/20 11/16/20 11/16/20 08:31 History 40 mg atenoloL [Tenormin] 25 mg PO DAILY 01/16/20 11/16/20 11/15/20 History 25 mg Aspirin EC [Ecotrin] 325 mg PO QDAY #30 tablet 01/20/20 11/16/20 11/15/20 Rx 325 mg AtorvaSTATin [Lipitor] 40 mg PO QHS #30 tablet 01/20/20 11/16/20 11/15/20 Rx 40 mg Hydroxyurea 500 mg PO Q12H #60 capsule 01/20/20 11/16/20 11/15/20 Rx 500 mg Sitagliptin Phosphate [Januvia] 100 mg PO DAILY 11/16/20 11/16/20 11/15/20 History 100 mg ED Neuro Physical Exam - General General appearance: alert, in no apparent distress Suspected Stroke: Yes - Head Head exam: Present: atraumatic, normocephalic, normal inspection - Eye Eye exam: Present: normal appearance - ENT ENT exam: Present: normal exam, normal orophraynx, mucous membranes moist - Neck Neck exam: Present: normal inspection, full ROM. Absent: tenderness, meningismus - Respiratory Respiratory exam: Present: normal lung sounds bilaterally - Cardiovascular Cardiovascular Exam: Present: regular rate, normal rhythm, normal heart sounds - GI/Abdominal GI/Abdominal exam: Present: soft, normal bowel sounds. Absent: distended, tenderness, guarding, rebound, rigid, organomegaly, mass, bruit, pulsatile mass, hernia - Extremities Exam Extremities exam: Present: normal inspection, full ROM, normal capillary refill. Absent: tenderness, pedal edema, joint swelling, calf tenderness - Back Exam Back exam: Present: normal inspection, full ROM. Absent: CVA tenderness (R), CVA tenderness (L) - Neurological Exam Neurological exam: Present: alert, oriented X3, CN II-XII intact, normal gait, reflexes normal. Absent: motor sensory deficit - NIHSS Assessment Interval: Baseline 1a. Level of Consciousness: alert/keenly responsive 1b. LOC Questions: answers 1 question correctly 1c. LOC Commands: performs tasks correctly 2. Best Gaze: normal 3. Visual: no visual loss 4. Facial Palsy: normal symmetrical movement 5b. Motor Arm Right: no drift 5a. Motor Arm Left: no drift 6a. Motor Leg Left: no drift 6b. Motor Leg Right: no drift 7. Limb Ataxia: absent 8. Sensory: normal 9. Best Language: no aphasia 10. Dysarthria: mild/moderate dysarthria 11. Extinction/Inattention: no abnormality Total Score: 2 Stroke Severity: Minor Stroke - Psychiatric Psychiatric exam: Present: normal mood - Skin Skin exam: Present: warm, intact, normal color - Lab Data Result diagrams: 10/01/21 01:10/01/21 01:31 Lab Results 10/01/21 10/01/21 10/01/21 Range/Units 01:31 01:31 01:31 WBC 8.4 (4.5-11.0) K/mm3 RBC 2.68 L (3.65-5.03) M/mm3 Hgb 8.9 L (10.1-14.3) gm/dl Hct 28.0 L (30.3-42.9) % MCV 105 H (79-97) fl MCH 33 H (28-32) pg MCHC 32 (30-34) % RDW 21.9 H (13.2-15.2) % Plt Count 472 H (140-440) K/mm3 Lymph % (Auto) 22.9 (13.4-35.0) % [place] % (Auto) 10.6 H (0.0-7.3) % Eos % (Auto) 1.3 (0.0-4.3) % Baso % (Auto) 0.7 (0.0-1.8) % Lymph # (Auto) 1.9 (1.2-5.4) K/mm3 [place] # (Auto) 0.9 H (0.0-0.8) K/mm3 Eos # (Auto) 0.1 (0.0-0.4) K/mm3 Baso # (Auto) 0.1 (0.0-0.1) K/mm3 Seg Neutrophils % 64.5 (40.0-70.0) % Seg Neutrophils # 5.4 (1.8-7.7) K/mm3 PT 13.2 (12.2-14.9) Sec. INR 0.91 (0.87-1.13) APTT 30.1 (24.2-36.6) Sec. Sodium 137 (137-145) mmol/L Potassium 4.2 (3.6-5.0) mmol/L Chloride 99.3 (98-107) mmol/L Carbon Dioxide 23 (22-30) mmol/L Anion Gap 19 mmol/L BUN 11 (7-17) mg/dL Creatinine 0.7 (0.6-1.2) mg/dL Estimated GFR > 60 ml/min BUN/Creatinine Ratio 16 % Glucose 118 H (65-100) mg/dL Calcium 8.8 (8.4-10.2) mg/dL Total Creatine Kinase 44 (30-135) units/L CK-MB (CK-2) < 1.0 (0.0-4.0) ng/mL CK-MB (CK-2) Rel Index 2.2 (0-4) Troponin T < 0.010 (0.00-0.029) ng/mL - EKG Data -: EKG Interpreted by Dc EKG shows normal: sinus rhythm Rate: normal Interpretation: no acute changes - Radiology Data Radiology results: report reviewed - Medical Decision Making Patient is 61 years old female with history of prior stroke, hypertension, diabetes and essential thrombocytosis. 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 This is a started approximately midnight. Patient denied any weakness, numbness or tingling sensation. Stroke protocol immediately initiated and patient moved to CT for stat CT brain without contrast. Stroke telemetry neurologist immediately consulted and patient examined by Dr. Kemp. Patient symptoms rapidly improving. Patient is not a tPA candidate. Dr. Kemp. Labs reviewed and is unremarkable. CT brain is negative for acute finding. Symptoms are not consistent with large vessels obstruction. Dr. Kemp advised patient to be admitted to the hospital for stroke work-up. I discussed the patient with Dr. Morejon, he agreed to admit the patient to medical service for further management. Critical Care Time: Yes Critical care time in (mins) excluding proc time.: 35 Critical care attestation.: If time is entered above; I have spent that time in minutes in the direct care of this critically ill patient, excluding procedure time. ED Disposition Clinical Impression: Acute CVA (cerebrovascular accident) Disposition: 09 ADMITTED INPATIENT Is pt being admited?: Yes Condition: Stable
[2021-10-01] MEDS ORDERED: MORPHINE 2 MG/1 ML INJ IV PRN (03:45)
[2021-10-01] MEDS ORDERED: ACETAMINOPHEN 325 MG TAB PO PRN (03:45)
[2021-10-01] MEDS ORDERED: ALBUTEROL 2.5 MG/3 ML NEBU IH PRN (03:45)
[2021-10-01] MEDS ORDERED: SODIUM CHLORIDE 0.9% 1000 ML 1,000 ML IV SCH (03:45)
[2021-10-01] MEDS ORDERED: MORPHINE 4 MG/1 ML INJ IV PRN (03:45)
[2021-10-01] MEDS ORDERED: DEXTROSE 50% IN WATER (25GM) 50 ML SYRINGE IV PRN (03:45)
[2021-10-01] MEDS ORDERED: ONDANSETRON 4 MG/2 ML INJ IV PRN (03:45)
--- NOTE | 2021-10-01 03:55 | History and Physical Report ---
History of Present Illness Date of examination: 10/01/21 Date of admission: 10/01/21 Chief complaint: Difficulty speaking History of present illness: 61 years old female with history of prior stroke, hypertension, diabetes and essential thrombocytosis was brought to the emergency room because of difficulty speaking . 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 This is a started approximately midnight. Patient denied any weakness, numbness or tingling sensation. Stroke protocol immediately initiated and patient moved to CT for stat CT brain without contrast. Stroke telemetry neurologist immediately consulted and patient examined by Dr. Kemp. Patient symptoms rapidly improving. Patient is not a tPA candidate As per Dr. Kemp. Labs reviewed and is unremarkable. CT brain is negative for acute finding. Symptoms are not consistent with large vessels obstruction. Dr. Kemp advised patient to be admitted to the hospital for stroke work-up. Past History Past Medical History: diabetes, hypertension, stroke, other (Thrombocytosis) Past Surgical History: cholecystectomy, Other (Right heel) Social history: other (Former smoker) Family history: hypertension Medications and Allergies Allergies Allergy/AdvReac Type Severity Reaction Status Date / Time No Known Allergies Allergy Verified 10/26/17 06:30 Home Medications Medication Instructions Recorded Confirmed Last Taken Type Omeprazole 40 mg PO QDAY 01/16/20 11/16/20 11/16/20 08:31 History 40 mg atenoloL [Tenormin] 25 mg PO DAILY 01/16/20 11/16/20 11/15/20 History 25 mg Aspirin EC [Ecotrin] 325 mg PO QDAY #30 tablet 01/20/20 11/16/20 11/15/20 Rx 325 mg AtorvaSTATin [Lipitor] 40 mg PO QHS #30 tablet 01/20/20 11/16/20 11/15/20 Rx 40 mg Hydroxyurea 500 mg PO Q12H #60 capsule 01/20/20 11/16/20 11/15/20 Rx 500 mg Sitagliptin Phosphate [Januvia] 100 mg PO DAILY 11/16/20 11/16/20 11/15/20 History 100 mg Active Meds: Active Medications Acetaminophen (Acetaminophen 325 Mg Tab) 650 mg PO Q4H PRN PRN Reason: Pain MILD(1-3)/Fever >100.5/IZQUIERDO Albuterol (Albuterol 2.5 Mg/3 Ml Nebu) 2.5 mg IH Q3HRT PRN PRN Reason: Shortness Of Breath Albuterol/Ipratropium (Ipratropium/Albuterol Sulfate 3 Ml Ampul.Neb) 1 ampul IH Q6HRT [facility] Aspirin (Aspirin 325 Mg Tab) 325 mg PO QDAY [facility] Aspirin (Aspirin Ec 325 Mg Tab) 325 mg PO QDAY [facility] Atenolol (Atenolol 25 Mg Tab) 25 mg PO DAILY [facility] Atorvastatin Calcium (Atorvastatin 40 Mg Tab) 80 mg PO QHS [facility] Dextrose (Dextrose 50% In Water (25gm) 50 Ml Syringe) 50 ml IV Q30MIN PRN; Protocol PRN Reason: Hypoglycemia Famotidine (Famotidine 20 Mg/2 Ml Inj) 20 mg IV BID [facility] Heparin Sodium (Porcine) (Heparin 5,000 Unit/1 Ml Vial) 5,000 unit SUB-Q Q12HR [facility] Sodium Chloride (Nacl 0.9% 1000 Ml) 1,000 mls @ 100 mls/hr IV DIRECT [facility] Insulin Human Lispro (Insulin Lispro 100 Unit/Ml) 0 unit SUB-Q Q6HR [facility]; Protocol Morphine Sulfate (Morphine 2 Mg/1 Ml Inj) 2 mg IV Q4H PRN PRN Reason: Pain, Moderate (4-6) Morphine Sulfate (Morphine 4 Mg/1 Ml Inj) 4 mg IV Q4H PRN PRN Reason: Pain , Severe (7-10) Ondansetron HCl (Ondansetron 4 Mg/2 Ml Inj) 4 mg IV Q8H PRN PRN Reason: Nausea And Vomiting Sodium Chloride (Sodium Chloride 0.9% 10 Ml Flush Syringe) 10 ml IV BID [facility] Sodium Chloride (Sodium Chloride 0.9% 10 Ml Flush Syringe) 10 ml IV PRN PRN PRN Reason: LINE FLUSH Sodium Chloride (Sodium Chloride 0.9% 10 Ml Flush Syringe) 10 ml INJ PRN PRN PRN Reason: LINE FLUSH Review of Systems All systems: negative Neurological: headaches, other (Difficulty speaking) Exam - Constitutional General appearance: Present: no acute distress, well-nourished - EENT Eyes: Present: PERRL ENT: hearing intact, clear oral mucosa - Neck Neck: Present: supple, normal ROM - Respiratory Respiratory effort: normal Respiratory: bilateral: CTA - Cardiovascular Heart Sounds: Present: S1 & S2. Absent: rub, click - Extremities Extremities: pulses symmetrical, No edema Peripheral Pulses: within normal limits - Abdominal General gastrointestinal: Present: soft, non-tender, non-distended, normal bowel sounds Female genitourinary: Present: normal - Integumentary Integumentary: Present: clear, warm, dry - Musculoskeletal Musculoskeletal: gait normal, strength equal bilaterally - Psychiatric Psychiatric: appropriate mood/affect, intact judgment & insight - Neurologic Neurologic: CNII-XII intact, moves all extremities HEART Score - HEART Score Troponin: Troponin T < 0.010 ng/mL (0.00-0.029) 10/01/21 01:31 Results - Labs CBC & Chem 7: 10/01/21 01:31 10/01/21 01:31 Labs: Laboratory Last Values WBC 8.4 K/mm3 (4.5-11.0) 10/01/21 01:31 RBC 2.68 M/mm3 (3.65-5.03) L 10/01/21 01:31 Hgb 8.9 gm/dl (10.1-14.3) L 10/01/21 01:31 Hct 28.0 % (30.3-42.9) L 10/01/21 01:31 MCV 105 fl (79-97) H 10/01/21 01:31 MCH 33 pg (28-32) H 10/01/21 01:31 MCHC 32 % (30-34) 10/01/21 01:31 RDW 21.9 % (13.2-15.2) H 10/01/21 01:31 Plt Count 472 K/mm3 (140-440) H 10/01/21 01:31 Lymph % (Auto) 22.9 % (13.4-35.0) 10/01/21 01:31 [place] % (Auto) 10.6 % (0.0-7.3) H 10/01/21 01:31 Eos % (Auto) 1.3 % (0.0-4.3) 10/01/21 01:31 Baso % (Auto) 0.7 % (0.0-1.8) 10/01/21 01:31 Lymph # (Auto) 1.9 K/mm3 (1.2-5.4) 10/01/21 01:31 [place] # (Auto) 0.9 K/mm3 (0.0-0.8) H 10/01/21 01:31 Eos # (Auto) 0.1 K/mm3 (0.0-0.4) 10/01/21 01:31 Baso # (Auto) 0.1 K/mm3 (0.0-0.1) 10/01/21 01:31 Seg Neutrophils % 64.5 % (40.0-70.0) 10/01/21 01:31 Seg Neutrophils # 5.4 K/mm3 (1.8-7.7) 10/01/21 01:31 PT 13.2 Sec. (12.2-14.9) 10/01/21 01:31 INR 0.91 (0.87-1.13) 10/01/21 01:31 APTT 30.1 Sec. (24.2-36.6) 10/01/21 01:31 Thrombin Time 14.9 Sec. (15.1-19.6) L 10/01/21 01:31 Sodium 137 mmol/L (137-145) 10/01/21 01:31 Potassium 4.2 mmol/L (3.6-5.0) 10/01/21 01:31 Chloride 99.3 mmol/L (98-107) 10/01/21 01:31 Carbon Dioxide 23 mmol/L (22-30) 10/01/21 01:31 Anion Gap 19 mmol/L 10/01/21 01:31 BUN 11 mg/dL (7-17) 10/01/21 01:31 Creatinine 0.7 mg/dL (0.6-1.2) 10/01/21 01:31 Estimated GFR > 60 ml/min 10/01/21 01:31 BUN/Creatinine Ratio 16 % 10/01/21 01:31 Glucose 118 mg/dL (65-100) H 10/01/21 01:31 Calcium 8.8 mg/dL (8.4-10.2) 10/01/21 01:31 Total Creatine Kinase 44 units/L (30-135) 10/01/21 01:31 CK-MB (CK-2) < 1.0 ng/mL (0.0-4.0) 10/01/21 01:31 CK-MB (CK-2) Rel Index 2.2 (0-4) 10/01/21 01:31 Troponin T < 0.010 ng/mL (0.00-0.029) 10/01/21 01:31 - Imaging and Cardiology CT Scan - head: report reviewed Assessment and Plan VTE prophylaxis?: Chemical Plan of care discussed with patient/family: Yes - Patient Problems (1) Acute CVA (cerebrovascular accident) Status: Acute Plan to address problem: Admit the patient to the medical telemetry. Aspirin 325 mg p.o. daily. Lipitor 80 mg p.o. daily. PT OT speech evaluation. MRI of the brain MRI of the brain and neck with and without contrast. Neurology evaluation. Echocardiogram. (2) Hypertension Status: Acute Plan to address problem: Labetalol 10 mg IV every 6 hours as needed. We will monitor the patient closely. We will continue the home medication (3) Diabetes Status: Acute Plan to address problem: Accu-Chek every 6 hours with Humalog moderate dose coverage as. Diabetic edu cation (4) Thrombocytosis Status: Acute Plan to address problem: Will continue the hydroxyurea 500 mg p.o. every 12 hours. (5) DVT prophylaxis Status: Acute Plan to address problem: Heparin 5000 units subcu every 12 hours for DVT prophylaxis. Pepcid 20 mg IV ev george 12 hours for GI prophylaxis. Patient is a full code
[2021-10-01 05:33] LABS: Bilirubin,Urine NEG (Negative); Blood,Urine NEG (Negative); Color,Urine Straw (Yellow); Protein,Urine <15 mg/dL mg/dL (Negative); Urobilinogen,Urine < 2.0 mg/dL (<2.0)
[2021-10-01 05:39] LABS: Bacteria,Urine 1+ /HPF (Negative)
[2021-10-01] MEDS: IPRATROPIUM/ALBUTEROL SULFATE 3 ML AMPUL.NEB IH SCH ×3 (08:23→20:27)
[2021-10-01] MEDS: INSULIN LISPRO 100 UNIT/ML SUB-Q SCH ×2 (08:32→13:33)
[2021-10-01] MEDS ORDERED: ASPIRIN 325 MG TAB PO SCH (10:00)
--- NOTE | 2021-10-01 11:28 | Electrocardiograph Report ---
[facility] Test Date: 2021-10-01 Test Time: 02:44:01 Pat Name: JUAN JOSE OTTO Department: Room: A469 1 Gender: F Lead Custodian: NURSE : 1960 Requested By: REYNALDO MILLER Order Number: [id number] Reading MD: Terry Valentino Measurements Intervals [place] Rate: 81 P: 25 MS: 193 QRS: -9 QRSD: 106 T: 46 QT: 392 QTc: 454 Interpretive Statements Sinus rhythm Compared to ECG 10/01/2021 01:46:54 Atrial fibrillation no longer present Prolonged QT interval no longer present Electronically Signed On 10-01-2021 11:28:08 EDT by Terry Valentino
--- NOTE | 2021-10-01 11:28 | Electrocardiograph Report ---
[facility] Test Date: 2021-10-01 Test Time: 01:46:54 Pat Name: JUAN JOSE OTTO Department: Room: A469 1 Gender: F Dial Mounter: ARETHA : 1960 Requested By: LORI GUERRERO Order Number: [id number] Reading MD: Terry Valentino Measurements Intervals [place] Rate: 100 P: [place]: QRS: -21 QRSD: 104 T: 42 QT: 388 QTc: 501 Interpretive Statements baseline artifact - prob sr would repeat ecg Low voltage, precordial leads Prolonged QT interval No previous ECG available for comparison Electronically Signed On 10-01-2021 11:27:59 EDT by Terry Valentino
[2021-10-01] MEDS: ASPIRIN EC 325 MG TAB PO SCH (13:30)
[2021-10-01] MEDS: HEPARIN 5,000 UNIT/1 ML VIAL SUB-Q SCH ×2 (13:30→22:09)
[2021-10-01] MEDS: HYDROXYUREA 500 MG CAP PO SCH ×2 (13:31→22:24)
[2021-10-01] MEDS: FAMOTIDINE 20 MG/2 ML INJ IV SCH ×2 (13:31→22:29)
[2021-10-01] MEDS: atenoloL 25 MG TAB PO SCH (13:32)
--- NOTE | 2021-10-01 13:36 | Consultation ---
History of Present Illness Consult date: 10/01/21 Reason for Consult: CVA History of present illness: The patient develops acute onset of dysarthria , the patient reports headache today, overall improved since the admission. There is a history of Thrombocytosis . Past History Past Medical History: diabetes, hypertension, stroke, other (Thrombocytosis) Past Surgical History: cholecystectomy, Other (Right heel) Social history: other (Former smoker) Family history: hypertension Medications and Allergies Allergies Allergy/AdvReac Type Severity Reaction Status Date / Time No Known Allergies Allergy Verified 10/26/17 06:30 Home Medications Medication Instructions Recorded Confirmed Last Taken Type Omeprazole 40 mg PO QDAY 01/16/20 11/16/20 11/16/20 08:31 History 40 mg atenoloL [Tenormin] 25 mg PO DAILY 01/16/20 11/16/20 11/15/20 History 25 mg Aspirin EC [Ecotrin] 325 mg PO QDAY #30 tablet 01/20/20 11/16/20 11/15/20 Rx 325 mg AtorvaSTATin [Lipitor] 40 mg PO QHS #30 tablet 01/20/20 11/16/20 11/15/20 Rx 40 mg Hydroxyurea 500 mg PO Q12H #60 capsule 01/20/20 11/16/20 11/15/20 Rx 500 mg Sitagliptin Phosphate [Januvia] 100 mg PO DAILY 11/16/20 11/16/20 11/15/20 History 100 mg Active Meds: Active Medications Acetaminophen (Acetaminophen 325 Mg Tab) 650 mg PO Q4H PRN PRN Reason: Pain MILD(1-3)/Fever >100.5/IZQUIERDO Albuterol (Albuterol 2.5 Mg/3 Ml Nebu) 2.5 mg IH Q3HRT PRN PRN Reason: Shortness Of Breath Albuterol/Ipratropium (Ipratropium/Albuterol Sulfate 3 Ml Ampul.Neb) 1 ampul IH Q6HRT [facility] Last Admin: 10/01/21 08:23 Dose: Not Given Aspirin (Aspirin Ec 325 Mg Tab) 325 mg PO QDAY [facility] Atenolol (Atenolol 25 Mg Tab) 25 mg PO DAILY [facility] Atorvastatin Calcium (Atorvastatin 40 Mg Tab) 80 mg PO QHS [facility] Dextrose (Dextrose 50% In Water (25gm) 50 Ml Syringe) 50 ml IV Q30MIN PRN; Protocol PRN Reason: Hypoglycemia Famotidine (Famotidine 20 Mg/2 Ml Inj) 20 mg IV BID [facility] Heparin Sodium (Porcine) (Heparin 5,000 Unit/1 Ml Vial) 5,000 unit SUB-Q Q12HR [facility] Hydroxyurea (Hydroxyurea 500 Mg Cap) 500 mg PO Q12HR [facility] Sodium Chloride (Nacl 0.9% 1000 Ml) 1,000 mls @ 100 mls/hr IV DIRECT [facility] Last Admin: 10/01/21 06:00 Dose: 100 mls/hr Insulin Human Lispro (Insulin Lispro 100 Unit/Ml) 0 unit SUB-Q Q6HR [facility]; Protocol Last Admin: 10/01/21 08:32 Dose: Not Given Morphine Sulfate (Morphine 2 Mg/1 Ml Inj) 2 mg IV Q4H PRN PRN Reason: Pain, Moderate (4-6) Morphine Sulfate (Morphine 4 Mg/1 Ml Inj) 4 mg IV Q4H PRN PRN Reason: Pain , Severe (7-10) Ondansetron HCl (Ondansetron 4 Mg/2 Ml Inj) 4 mg IV Q8H PRN PRN Reason: Nausea And Vomiting Sodium Chloride (Sodium Chloride 0.9% 10 Ml Flush Syringe) 10 ml IV BID [facility] Sodium Chloride (Sodium Chloride 0.9% 10 Ml Flush Syringe) 10 ml IV PRN PRN PRN Reason: LINE FLUSH Physical Examination - Vital Signs Vital Signs: Vital Signs Temp 98.9 F 10/01/21 01:02 - Physical Exam Narrative exam: The patient is alert , no major cranial nerve abnormality noted, no drift , finger to nose is normal,gait is not evaluated and no aphasia . Results - Laboratory Findings CBC and BMP: 10/01/21 01:31 10/01/21 01:31 Abnormal Lab Findings: Abnormal Labs 10/01/21 10/01/21 10/01/21 01:31 01:31 01:31 RBC 2.68 L Hgb 8.9 L Hct 28.0 L MCV 105 H MCH 33 H RDW 21.9 H Plt Count 472 H [place] % (Auto) 10.6 H [place] # (Auto) 0.9 H Thrombin Time 14.9 L Glucose 118 H Ur Specific [place] 10/01/21 Unknown RBC Hgb Hct MCV MCH RDW Plt Count [place] % (Auto) [place] # (Auto) Thrombin Time Glucose Ur Specific [place] 1.002 L Assessment and Plan 1. Possible TIA ( awaits a final report on MRI Brain ). 2. If normal patient cant be discharged tommorow. 3. Continue ASA for now , if agreeable with [facility]- consider - adding Plavix 75 mg + ASA 81 mg a day . 4. Use PRN Fiorocet as needed not more than [address] Lopez
--- NOTE | 2021-10-01 13:45 | Magnetic Resonance Report ---
MR MRA/MRV head wo con INDICATION / CLINICAL INFORMATION: 61 years Female; stroke. TECHNIQUE: 3-D time of flight. NASCET type criteria used to evaluate stenoses. COMPARISON: None available. FINDINGS: INTERNAL CAROTID ARTERIES: No significant narrowing appreciated. VERTEBROBASILAR SYSTEM: No significant narrowing appreciated. DISTAL BRANCHES: Distal branches of the anterior, middle, and posterior cerebral arteries are fairly symmetric in appearance and number. ANEURYSM: None identified. May be a very small infundibulum near the origin of the posterior communic ating artery on the right. IMPRESSION: No significant abnormality on this MRA of the brain. Signer Name: George Bolton MD, III Signed: 10/01/2021 1:41 PM Workstation Name: [id number]
--- NOTE | 2021-10-01 14:36 | Magnetic Resonance Report ---
MR brain wo con INDICATION / CLINICAL INFORMATION: 61 years Female; stroke. TECHNIQUE: Multiplanar, multisequence MR images of the brain were obtained. COMPARISON: 01/18/2020; CT - 10/01/2021 FINDINGS: BRAIN / INTRACRANIAL CONTENTS: No acute hemorrhage, mass effect, midline shift, hydrocephalus, or acu te, large territorial infarct. No chronic infarct or atrophy. There are mild areas of increased signal intensity on FLAIR imaging in the white matter of the cerebr al hemispheres. These are nonspecific findings and may be related to microangiopathy (hypertension, d iabetes, atherosclerosis), given the patient's age. CRANIOCERVICAL JUNCTION: No significant abnormality. VASCULAR FLOW-VOIDS: No significant abnormality. ORBITS: No significant abnormality of visualized orbits. SINUSES / MASTOIDS: Mild mucosal thickening in the mastoids. ADDITIONAL FINDINGS: None. IMPRESSION: 1. No focal mass, hemorrhage, hydrocephalus, or acute ischemia. Signer Name: George Bolton MD, III Signed: 10/01/2021 2:32 PM Workstation Name: [id number]
--- NOTE | 2021-10-01 19:54 | Progress Note ---
Assessment and Plan Assessment and plan: VTE prophylaxis?: Chemical Plan of care discussed with patient/family: Yes - Patient Problems --Acute CVA (cerebrovascular accident) ruled out Continue aspirin 325 mg p.o. daily. Lipitor 80 mg p.o. daily. PT OT speech evaluation. MRI negative Acute CVA ruled out --possible TIA; Continue aspirin and statin Neuro work-up so far; CT head without contrast no acute abnormality noted MRI brain no focal mass, hemorrhage, hydrocephalus or acute ischemia Echocardiogram; LVEF 55 to 60% no PFO on bubble study MRA brain; no significant abnormality on the MRI of the brain EKG; sinus rhythm -- Hypertension Labetalol 10 mg IV every 6 hours as needed. We will monitor the patient closely. We will continue the home medication -- Diabetes Accu-Chek every 6 hours with Humalog moderate dose coverage as. Diabetic education --Thrombocytosis Will continue the hydroxyurea 500 mg p.o. every 12 hours. Patient follows with private inlayer --DVT prophylaxis Heparin 5000 units subcu every 12 hours for DVT prophylaxis. Pepcid 20 mg IV every 12 hours for GI prophylaxis. Patient is a full code PT; recommended cane/hiking stick intermittently as needed to stabilize gait/prevent falls OT; no discharge needs Closely monitor the patient and adjust the management as needed Plan of care reviewed with the patient and her nurse Neurology evaluation recommendations noted and appreciated Possible discharge home tomorrow if stable History Interval history: I have seen and examined the patient at the bedside Patient's chart and medications reviewed Patient feels better Weakness significantly improved Neuro work-up nephrology is negative Vital signs noted Hospitalist Physical - Constitutional Vitals: Temp Pulse Resp BP Pulse Ox 98.9 F 85 20 130/72 96 10/01/21 01:02 10/01/21 14:00 10/01/21 05:30 10/01/21 15:00 10/01/21 18:00 General appearance: Present: no acute distress, well-nourished - EENT Eyes: Present: PERRL, EOM intact - Neck Neck: Present: supple, normal ROM - Respiratory Respiratory effort: normal Respiratory: bilateral: diminished, negative: rales, rhonchi, wheezing - Cardiovascular Rhythm: regular Heart Sounds: Present: S1 & S2 - Extremities Extremities: no ischemia, No edema - Abdominal General gastrointestinal: soft, non-tender, non-distended, normal bowel sounds - Integumentary Integumentary: Present: clear, warm - Psychiatric Psychiatric: appropriate mood/affect, cooperative - Neurologic Neurologic: moves all extremities HEART Score - HEART Score Troponin: Troponin T < 0.010 ng/mL (0.00-0.029) 10/01/21 01:31 Results - Labs CBC & Chem 7: 10/01/21 01:31 10/01/21 01:31 Labs: Laboratory Last Values WBC 8.4 K/mm3 (4.5-11.0) 10/01/21 01:31 RBC 2.68 M/mm3 (3.65-5.03) L 10/01/21 01:31 Hgb 8.9 gm/dl (10.1-14.3) L 10/01/21 01:31 Hct 28.0 % (30.3-42.9) L 10/01/21 01:31 MCV 105 fl (79-97) H 10/01/21 01:31 MCH 33 pg (28-32) H 10/01/21 01:31 MCHC 32 % (30-34) 10/01/21 01:31 RDW 21.9 % (13.2-15.2) H 10/01/21 01:31 Plt Count 472 K/mm3 (140-440) H 10/01/21 01:31 Lymph % (Auto) 22.9 % (13.4-35.0) 10/01/21 01:31 [place] % (Auto) 10.6 % (0.0-7.3) H 10/01/21 01:31 Eos % (Auto) 1.3 % (0.0-4.3) 10/01/21 01:31 Baso % (Auto) 0.7 % (0.0-1.8) 10/01/21 01:31 Lymph # (Auto) 1.9 K/mm3 (1.2-5.4) 10/01/21 01:31 [place] # (Auto) 0.9 K/mm3 (0.0-0.8) H 10/01/21 01:31 Eos # (Auto) 0.1 K/mm3 (0.0-0.4) 10/01/21 01:31 Baso # (Auto) 0.1 K/mm3 (0.0-0.1) 10/01/21 01:31 Seg Neutrophils % 64.5 % (40.0-70.0) 10/01/21 01:31 Seg Neutrophils # 5.4 K/mm3 (1.8-7.7) 10/01/21 01:31 PT 13.2 Sec. (12.2-14.9) 10/01/21 01:31 INR 0.91 (0.87-1.13) 10/01/21 01:31 APTT 30.1 Sec. (24.2-36.6) 10/01/21 01:31 Thrombin Time 14.9 Sec. (15.1-19.6) L 10/01/21 01:31 Sodium 137 mmol/L (137-145) 10/01/21 01:31 Potassium 4.2 mmol/L (3.6-5.0) 10/01/21 01:31 Chloride 99.3 mmol/L (98-107) 10/01/21 01:31 Carbon Dioxide 23 mmol/L (22-30) 10/01/21 01:31 Anion Gap 19 mmol/L 10/01/21 01:31 BUN 11 mg/dL (7-17) 10/01/21 01:31 Creatinine 0.7 mg/dL (0.6-1.2) 10/01/21 01:31 Estimated GFR > 60 ml/min 10/01/21 01:31 BUN/Creatinine Ratio 16 % 10/01/21 01:31 Glucose 118 mg/dL (65-100) H 10/01/21 01:31 POC Glucose 148 mg/dL (70-105) H 10/01/21 17:28 Calcium 8.8 mg/dL (8.4-10.2) 10/01/21 01:31 Total Creatine Kinase 44 units/L (30-135) 10/01/21 01:31 CK-MB (CK-2) < 1.0 ng/mL (0.0-4.0) 10/01/21 01:31 CK-MB (CK-2) Rel Index 2.2 (0-4) 10/01/21 01:31 Troponin T < 0.010 ng/mL (0.00-0.029) 10/01/21 01:31 Urine Color Straw (Yellow) 10/01/21 Unknown Urine Turbidity Clear (Clear) 10/01/21 Unknown Urine pH 7.0 (5.0-7.0) 10/01/21 Unknown Ur Specific [place] 1.002 (1.003-1.030) L 10/01/21 Unknown Urine Protein <15 mg/dl mg/dL (Negative) 10/01/21 Unknown Urine Glucose (UA) Neg mg/dL (Negative) 10/01/21 Unknown Urine Ketones Neg mg/dL (Negative) 10/01/21 Unknown Urine Blood Neg (Negative) 10/01/21 Unknown Urine Nitrite Neg (Negative) 10/01/21 Unknown Urine Bilirubin Neg (Negative) 10/01/21 Unknown Urine Urobilinogen < 2.0 mg/dL (<2.0) 10/01/21 Unknown Ur Leukocyte Esterase Neg (Negative) 10/01/21 Unknown Urine WBC (Auto) 2.0 /HPF (0.0-6.0) 10/01/21 Unknown Urine RBC (Auto) 1.0 /HPF (0.0-6.0) 10/01/21 Unknown U Epithel Cells (Auto) 6.0 /HPF (0-13.0) 10/01/21 Unknown Urine Bacteria (Auto) 1+ /HPF (Negative) 10/01/21 Unknown [place]ong/IV: Voiding Method Toilet Active Medications - Current Medications Current Medications: Generic Name Dose Route Start Last Admin Trade Name Freq PRN Reason Stop Dose Admin Acetaminophen 650 mg 10/01/21 03:45 Acetaminophen 325 Mg Tab PO Q4H PRN Pain MILD(1-3)/Fever >100.5/IZQUIERDO Albuterol 2.5 mg 10/01/21 03:45 Albuterol 2.5 Mg/3 Ml Nebu IH Q3HRT PRN Shortness Of Breath Albuterol/Ipratropium 1 ampul 10/01/21 08:00 10/01/21 15:03 Ipratropium/Albuterol Sulfate 3 Ml Ampul.Neb IH Not Given Q6HRT [facility] Aspirin 325 mg 10/01/21 10:00 10/01/21 13:30 Aspirin Ec 325 Mg Tab PO 325 mg QDAY [facility] Administration Atenolol 25 mg 10/01/21 10:00 10/01/21 13:32 Atenolol 25 Mg Tab PO 25 mg DAILY [facility] Administration Atorvastatin Calcium 80 mg 10/01/21 22:00 Atorvastatin 40 Mg Tab PO QHS [facility] Dextrose 50 ml 10/01/21 03:45 Dextrose 50% In Water (25gm) 50 Ml Syringe IV Q30MIN PRN Hypoglycemia Protocol Famotidine 20 mg 10/01/21 10:00 10/01/21 13:31 Famotidine 20 Mg/2 Ml Inj IV 20 mg BID [facility] Administration Heparin Sodium (Porcine) 5,000 unit 10/01/21 10:00 10/01/21 13:30 Heparin 5,000 Unit/1 Ml Vial SUB-Q 5,000 unit Q12HR [facility] Administration Hydroxyurea 500 mg 10/01/21 10:00 10/01/21 13:31 Hydroxyurea 500 Mg Cap PO 500 mg Q12HR [facility] Administration Sodium Chloride 1,000 mls @ 100 mls/hr 10/01/21 03:45 10/01/21 06:00 Nacl 0.9% 1000 Ml IV 100 mls/hr DIRECT [facility] Administration Insulin Human Lispro 0 unit 10/01/21 06:00 10/01/21 13:33 Insulin Lispro 100 Unit/Ml SUB-Q Not Given Q6HR [facility] Protocol Morphine Sulfate 2 mg 10/01/21 03:45 Morphine 2 Mg/1 Ml Inj IV Q4H PRN Pain, Moderate (4-6) Morphine Sulfate 4 mg 10/01/21 03:45 Morphine 4 Mg/1 Ml Inj IV Q4H PRN Pain , Severe (7-10) Ondansetron HCl 4 mg 10/01/21 03:45 Ondansetron 4 Mg/2 Ml Inj IV Q8H PRN Nausea And Vomiting Sodium Chloride 10 ml 10/01/21 10:00 10/01/21 13:32 Sodium Chloride 0.9% 10 Ml Flush Syringe IV 10 ml BID [facility] Administration Sodium Chloride 10 ml 10/01/21 03:45 Sodium Chloride 0.9% 10 Ml Flush Syringe IV PRN PRN LINE FLUSH Nutrition/Malnutrition Assess - Dietary Evaluation Nutrition/Malnutrition Findings: Nutrition Notes Start: 10/01/21 1 5:04 Freq: Status: Active Protocol: Document 10/01/21 15:05 SWATI (Rec: 10/01/21 15:15 SWATI [id number]) Nutrition Notes Need for Assessment generated from: MD Order,Education Initial or Follow up Brief Note Current Diagnosis Diabetes,Hypertension,Stroke Other Pertinent Diagnosis Thrombocytosis, Dysarthria. Current Diet NPO (since 10/01 03:46). Height 5 ft 9 in Weight 155 kg [place] Body Weight (kg) 65.90 BMI 50.4 Intake Prior to Admission Good Weight change and time frame Pt denies having loss body weight [employer]. Weight Status Morbidly Obese Subjective/Other Information RD consult for nutrition education assessment. Pt currently on NPO. Pt is on Room Air, O2 saturation @ 99%, according to Physical Assessment History notes. Pt presents dysarthria, and undergoing several studies at the time, according to Progress notes. Pt still in critical condition , not a candidate for Nutrition Education at the time, will assess feasibility on F/U. Percent of energy/protein needs met: Pt currently on NPO. Nutrition Intervention Follow-Up By: 10/04/21 Additional Comments Nutrition education will be provided at F/U, if feasible. When pertinent, start monitoring food tolerance, %PO intake of meals, and BM.
[2021-10-02] MEDS: IPRATROPIUM/ALBUTEROL SULFATE 3 ML AMPUL.NEB IH SCH ×2 (01:52→08:13)
[2021-10-02 05:24] LABS: Basophils % (Auto) 0.9 % (0.0-1.8); Eosinophils # (Auto) 0.1 K/mm3 (0.0-0.4); Eosinophils % (Auto) 1.5 % (0.0-4.3); Hematocrit 29.2 % (30.3-42.9); Lymphocytes % (Auto) 34.1 % (13.4-35.0); Mean Corpuscular HGB Conc 31 % (30-34); Mean Corpuscular Volume 105 fl (79-97); Monocytes # (Auto) 0.7 K/mm3 (0.0-0.8); Monocytes % (Auto) 11.7 % (0.0-7.3); Platelet Count 444 K/mm3 (140-440); Red Blood Count 2.78 M/mm3 (3.65-5.03)
[2021-10-02 05:30] LABS: Red Cell Distribution Width 21.9 % (13.2-15.2)
[2021-10-02 05:37] LABS: Blood Urea Nitrogen 13 mg/dL (7-17); Calcium 8.6 mg/dL (8.4-10.2); Chol/HDL Ratio 3.79 %; HDL Cholesterol 48 mg/dL (40-59); Hemolysis Index 4; LDL Cholesterol,Direct 114 mg/dL (50-130)
[2021-10-02 05:48] LABS: BUN/Creatinine Ratio 22
[2021-10-02 08:48] VITALS: BP 127/72
[2021-10-02] MEDS: atenoloL 25 MG TAB PO SCH (09:06)
[2021-10-02] MEDS: ASPIRIN EC 325 MG TAB PO SCH (09:06)
[2021-10-02] MEDS: HYDROXYUREA 500 MG CAP PO SCH (09:07)
[2021-10-02] MEDS: HEPARIN 5,000 UNIT/1 ML VIAL SUB-Q SCH (09:07)
[2021-10-02] MEDS: FAMOTIDINE 20 MG/2 ML INJ IV SCH (09:07)
--- NOTE | 2021-10-02 13:19 | Discharge Summary ---
Providers - Providers Date of Admission: 10/01/21 03:46 Date of discharge: 10/02/21 Attending physician: REYNALDO MILLER 10/01/21 03:45 Consult to Physician [CONS] Routine Comment: Consulting Provider: HERRERA SWAIN Physician Instructions: Reason For Exam: cva 10/01/21 03:46 Consult to Dietitian/Nutrition [CONS] Routine Physician Instructions: Reason For Exam: Reason for Consult: Diet education Occupational Therapy Evaluate and Treat [CONS] Routine Comment: Reason For Exam: Neuro deficits Physical Therapy Evaluation and Treat [CONS] Routine Comment: Reason For Exam: Neuro deficits Primary care physician: KATHY CHENG Hospitalization Reason for admission: Difficulty speaking while at work Condition: Stable Pertinent studies: Neuro work-up so far; CT head without contrast no acute abnormality noted MRI brain no focal mass, hemorrhage, hydrocephalus or acute ischemia Echocardiogram; LVEF 55 to 60% no PFO on bubble study MRA brain; no significant abnormality on the MRI of the brain EKG; sinus rhythm Hospital course: 61-year-old female patient with significant past medical history of prior stroke, hypertension, diabetes mellitus, essential thrombocytosis was admitted through emergency room with history of difficulty speaking while at work in the emergency room patient was noted candidate for tPA telemetry neurologist evaluated and recommended extensive neuro work-up as mentioned above patient's neuro work-up is essentially negative, acute CVA ruled out Symptoms slowly but gradually improved Probably secondary to TIA Patient is on antiplatelets and statin PT evaluated the patient and recommended cane when she is walking on uneven surfaces for gait stability Today patient is comfortable, no new complaints, vital signs stable Physical examination unremarkable Stable at discharge Advised to follow primary care physician Advised to follow private ic designer custom Advised to follow private neurologist Patient verbalized understanding Discharge diagnosis --Acute CVA (cerebrovascular accident) ruled out Continue aspirin 325 mg p.o. daily. Lipitor 80 mg p.o. daily. PT OT speech evaluation. MRI negative Acute CVA ruled out --possible TIA; Continue aspirin and statin Neuro work-up so far; CT head without contrast no acute abnormality noted MRI brain no focal mass, hemorrhage, hydrocephalus or acute ischemia Echocardiogram; LVEF 55 to 60% no PFO on bubble study MRA brain; no significant abnormality on the MRI of the brain EKG; sinus rhythm -- Hypertension Labetalol 10 mg IV every 6 hours as needed. We will monitor the patient closely. We will continue the home medication -- Diabetes Accu-Chek every 6 hours with Humalog moderate dose coverage as. Diabetic education --Thrombocytosis Will continue the hydroxyurea 500 mg p.o. every 12 hours. Patient follows with private ic designer custom --Morbid obesity; BMI 50.5 Diet modification, exercise as tolerated and weight reduction When you are medically stable -DVT prophylaxis Heparin 5000 units subcu every 12 hours for DVT prophylaxis. Pepcid 20 mg IV every 12 hours for GI prophylaxis. Patient is a full code PT; recommended cane/hiking stick intermittently as needed to stabilize gait/prevent falls OT; no discharge needs Patient is stable at discharge Disposition: HOME / SELF CARE / HOMELESS Final Discharge Diagnosis (Prints w/discharge instructions): Possible acute CVA/work-up negative/CVA ruled out. Possible TIA. Hypertension. Diabetes mellitus. Thrombocytosis. Morbid obesity BMI 50.5 Time spent for discharge: 35 minutes Core Measure Documentation - Palliative Care Palliative Care/ Comfort Measures: Not Applicable - Core Measures Any of the following diagnoses?: none Exam - Constitutional Vitals: Temp Pulse Resp BP Pulse Ox 98.5 F 107 H 18 127/72 96 10/02/21 08:38 10/02/21 08:38 10/02/21 11:25 10/02/21 08:38 10/02/21 11:25 General appearance: Present: no acute distress, well-nourished - EENT Eyes: Present: PERRL, EOM intact - Neck Neck: Present: supple, normal ROM - Respiratory Respiratory effort: normal Respiratory: bilateral: diminished, negative: rales, rhonchi, wheezing - Cardiovascular Rhythm: regular Heart Sounds: Present: S1 & S2 - Extremities Extremities: no ischemia, No edema - Abdominal General gastrointestinal: Present: soft, non-tender, non-distended - Integumentary Integumentary: Present: clear, warm - Musculoskeletal Musculoskeletal: strength equal bilaterally - Psychiatric Psychiatric: appropriate mood/affect, cooperative - Neurologic Neurologic: moves all extremities Plan Activity: advance as tolerated, fall precautions Diet: other (cardiac diet) Additional Instructions: Physical therapy advised to use cane to support on uneven surfaces'. If you have worsening symptoms contact MD or go to the nearest emergency room as needed. Advised to follow private neurologist Dr. Oliveira in 1 to 2 weeks or as needed. Follow your private ic designer custom per schedule. Advised diet modification, exercise as tolerated, weight reduction when you are medically stable. Advised 3 days work excuse from 10/03/2021- 10/05/2021 Follow up with: KATHY CHENG MD [Primary Care Provider] - 7 Days OZZY OLIVEIRA MD [Staff Physician] - 7 Days Forms: Release Restrictions
[2021-10-02] MEDS: INSULIN LISPRO 100 UNIT/ML SUB-Q SCH (15:28)
[2021-10-02] MEDS ORDERED: FAMOTIDINE 20 MG TAB PO SCH (22:00)
== END 2021-10-02 15:32 | disposition home or self-care (01) ==
LOC: ED 01:02 → INTOOBSV 03:46 → 4A 03:46
PROVIDERS: ADMIT Hospitalist; ATTEND Internal Medicine
DX: I63.9 Cerebral infarction, unspecified (principal); G45.9 Transient cerebral ischemic attack, unspecified; I10 Essential (primary) hypertension; E11.9 Type 2 diabetes mellitus without complications; D75.839 Thrombocytosis, unspecified; E66.01 Morbid (severe) obesity due to excess calories; I34.1 Nonrheumatic mitral (valve) prolapse; M19.90 Unspecified osteoarthritis, unspecified site; K21.9 Gastro-esophageal reflux disease without esophagitis; E78.00 Pure hypercholesterolemia, unspecified; E66.9 Obesity, unspecified; R29.702 NIHSS score 2; Z68.43 Body mass index [BMI] 50.0-59.9, adult; Z71.3 Dietary counseling and surveillance; Z90.49 Acquired absence of other specified parts of digestive tract; Z79.899 Other long term (current) drug therapy; Z98.890 Other specified postprocedural states; Z87.891 Personal history of nicotine dependence; Z79.82 Long term (current) use of aspirin; Z79.4 Long term (current) use of insulin; Z79.01 Long term (current) use of anticoagulants
CPT/HCPCS: 36415; 70450; 70544; 70551; 80048; 80061; 81001; 82550; 82553; 82962; 84484; 85025; 85610; 85670; 85730; 93005; 96361; 96372; 96374; 96376; 97162; 97165; 99291; C8929; G0378; J1644; J3490; J7030; 93306

== ENCOUNTER 2021-10-07 07:18 | Outpatient (CLI) | payer BC ==
[2021-10-07 07:36] LABS: Hematocrit 30.6 % (30.3-42.9); Hemoglobin 9.8 gm/dl (10.1-14.3); Mean Corpuscular HGB Conc 32 % (30-34); Mean Corpuscular Volume 102 fl (79-97); Platelet Count 322 K/mm3 (140-440); Red Blood Count 2.99 M/mm3 (3.65-5.03)
[2021-10-07 07:48] LABS: Red Cell Distribution Width 22.7 % (13.2-15.2)
[2021-10-07 07:51] LABS: INR 1.2 (0.87-1.13)
== END 2021-10-07 07:19 | disposition home or self-care (01) ==
LOC: LAB 07:18
PROVIDERS: ATTEND Internal Medicine Hematology & Oncology
DX: D47.3 Essential (hemorrhagic) thrombocythemia (principal); Z79.01 Long term (current) use of anticoagulants
CPT/HCPCS: 36415; 85027; 85610

== ENCOUNTER 2021-10-14 07:16 | Outpatient (CLI) | payer BC ==
[2021-10-14 07:43] LABS: Hematocrit 27.9 % (30.3-42.9); Hemoglobin 8.9 gm/dl (10.1-14.3); Mean Corpuscular HGB Conc 32 % (30-34); Mean Corpuscular Volume 97 fl (79-97); Platelet Count 359 K/mm3 (140-440); Red Blood Count 2.88 M/mm3 (3.65-5.03)
[2021-10-14 07:54] LABS: INR 1.86 (0.87-1.13)
== END 2021-10-14 07:17 | disposition home or self-care (01) ==
LOC: LAB 07:16
PROVIDERS: ATTEND Internal Medicine Hematology & Oncology
DX: D47.3 Essential (hemorrhagic) thrombocythemia (principal); Z79.01 Long term (current) use of anticoagulants
CPT/HCPCS: 36415; 85027; 85610

== ENCOUNTER 2021-10-21 07:12 | Outpatient (CLI) | payer BC ==
[2021-10-21 07:42] LABS: Hematocrit 27.5 % (30.3-42.9); Hemoglobin 8.6 gm/dl (10.1-14.3); Mean Corpuscular HGB Conc 31 % (30-34); Mean Corpuscular Volume 95 fl (79-97); Platelet Count 501 K/mm3 (140-440); Red Blood Count 2.89 M/mm3 (3.65-5.03)
[2021-10-21 07:54] LABS: INR 2.98 (0.87-1.13)
[2021-10-21 08:08] LABS: Red Cell Distribution Width 24.7 % (13.2-15.2)
== END 2021-10-21 07:13 | disposition home or self-care (01) ==
LOC: LAB 07:12
PROVIDERS: ATTEND Internal Medicine Hematology & Oncology
DX: D47.3 Essential (hemorrhagic) thrombocythemia (principal); Z79.01 Long term (current) use of anticoagulants
CPT/HCPCS: 36415; 85027; 85610

== ENCOUNTER 2021-10-28 07:17 | Outpatient (CLI) | payer BC ==
[2021-10-28 07:45] LABS: Hematocrit 26.1 % (30.3-42.9); Hemoglobin 8.3 gm/dl (10.1-14.3); Mean Corpuscular HGB Conc 32 % (30-34); Mean Corpuscular Volume 94 fl (79-97); Platelet Count 201 K/mm3 (140-440); Red Blood Count 2.76 M/mm3 (3.65-5.03)
[2021-10-28 07:54] LABS: INR 3.35 (0.87-1.13)
== END 2021-10-28 07:18 | disposition home or self-care (01) ==
LOC: LAB 07:17
PROVIDERS: ATTEND Internal Medicine Hematology & Oncology
DX: D47.3 Essential (hemorrhagic) thrombocythemia (principal); Z79.01 Long term (current) use of anticoagulants
CPT/HCPCS: 36415; 85027; 85610

== ENCOUNTER 2021-11-09 07:06 | Outpatient (CLI) | payer BC ==
[2021-11-09 07:48] LABS: Hematocrit 23.2 % (30.3-42.9); Hemoglobin 7.6 gm/dl (10.1-14.3); Mean Corpuscular HGB Conc 33 % (30-34); Mean Corpuscular Volume 95 fl (79-97); Platelet Count 557 K/mm3 (140-440); Red Blood Count 2.46 M/mm3 (3.65-5.03)
[2021-11-09 07:57] LABS: Red Cell Distribution Width 26.7 % (13.2-15.2)
[2021-11-09 07:58] LABS: INR 3.27 (0.87-1.13)
== END 2021-11-09 07:07 | disposition home or self-care (01) ==
LOC: LAB 07:06
PROVIDERS: ATTEND Internal Medicine Hematology & Oncology
DX: D47.3 Essential (hemorrhagic) thrombocythemia (principal); Z79.01 Long term (current) use of anticoagulants
CPT/HCPCS: 36415; 85027; 85610

== ENCOUNTER 2021-11-18 06:45 | Outpatient (CLI) | payer BC ==
[2021-11-18 07:29] LABS: Hematocrit 24.6 % (30.3-42.9); Hemoglobin 7.8 gm/dl (10.1-14.3); Mean Corpuscular HGB Conc 32 % (30-34); Mean Corpuscular Volume 96 fl (79-97); Platelet Count 133 K/mm3 (140-440); Red Blood Count 2.57 M/mm3 (3.65-5.03)
[2021-11-18 07:55] LABS: INR 2.46 (0.87-1.13)
== END 2021-11-18 06:46 | disposition home or self-care (01) ==
LOC: LAB 06:45
PROVIDERS: ATTEND Internal Medicine Hematology & Oncology
DX: D47.3 Essential (hemorrhagic) thrombocythemia (principal); Z79.01 Long term (current) use of anticoagulants
CPT/HCPCS: 36415; 85027; 85610

== ENCOUNTER 2021-11-25 06:40 | Outpatient (CLI) | payer BC ==
[2021-11-25 07:45] LABS: INR 2.9 (0.87-1.13)
[2021-11-25 09:30] LABS: Hematocrit 22.6 % (30.3-42.9); Hemoglobin 7.5 gm/dl (10.1-14.3); Mean Corpuscular HGB Conc 33 % (30-34); Mean Corpuscular Volume 98 fl (79-97); Platelet Count 264 K/mm3 (140-440); Red Cell Distribution Width 30.1 % (13.2-15.2)
== END 2021-11-25 06:41 | disposition home or self-care (01) ==
LOC: LAB 06:40
PROVIDERS: ATTEND Internal Medicine Hematology & Oncology
DX: D47.3 Essential (hemorrhagic) thrombocythemia (principal); Z79.01 Long term (current) use of anticoagulants
CPT/HCPCS: 36415; 85027; 85610

== ENCOUNTER 2021-12-02 06:21 | Outpatient (CLI) | payer BC ==
[2021-12-02 07:40] LABS: INR 2.41 (0.87-1.13)
[2021-12-02 09:30] LABS: Hematocrit 21.3 % (30.3-42.9); Hemoglobin 6.5 gm/dl (10.1-14.3); Mean Corpuscular HGB Conc 31 % (30-34); Mean Corpuscular Volume 99 fl (79-97); Platelet Count 419 K/mm3 (140-440); Red Blood Count 2.15 M/mm3 (3.65-5.03)
[2021-12-02 09:32] LABS: Red Cell Distribution Width 31.1 % (13.2-15.2)
== END 2021-12-02 06:22 | disposition home or self-care (01) ==
LOC: LAB 06:21
PROVIDERS: ATTEND Internal Medicine Hematology & Oncology
DX: D47.3 Essential (hemorrhagic) thrombocythemia (principal); Z79.01 Long term (current) use of anticoagulants
CPT/HCPCS: 36415; 85027; 85610

== ENCOUNTER 2021-12-04 01:22 | Emergency (ER) | payer BC ==
[2021-12-04 03:16] LABS: Alanine Aminotransferase 36 units/L (7-56); Albumin 4.1 g/dL (3.9-5); Blood Urea Nitrogen 12 mg/dL (7-17); Calcium 8.3 mg/dL (8.4-10.2); Hemolysis Index 8
[2021-12-04 03:37] LABS: INR 2.02 (0.87-1.13)
[2021-12-04 03:41] LABS: Hematocrit 22.6 % (30.3-42.9); Hemoglobin 7.2 gm/dl (10.1-14.3); Mean Corpuscular HGB Conc 32 % (30-34); Mean Corpuscular Volume 100 fl (79-97); Platelet Count 333 K/mm3 (140-440); Red Blood Count 2.27 M/mm3 (3.65-5.03)
[2021-12-04 03:42] LABS: Red Cell Distribution Width 31.7 % (13.2-15.2)
[2021-12-04 03:55] LABS: BUN/Creatinine Ratio 17
[2021-12-04 04:37] LABS: Anisocytosis 2+; Total Cells Counted 100
[2021-12-04] MEDS ORDERED: SODIUM CHLORIDE 0.9% 500 ML 500 ML IV ONE ×3 (04:45→09:44)
[2021-12-04 12:40] VITALS: BP 124/79
--- NOTE | 2021-12-04 12:48 | Emergency Department Report ---
ED General Adult HPI - General Chief complaint: Recheck/Abnormal Lab/Rx Stated complaint: NEED BLOOD TRANSFUSION Time Seen by Provider: 12/04/21 02:05 Source: patient Mode of arrival: Ambulatory Limitations: No Limitations - Related Data Home Medications Medication Instructions Recorded Confirmed Last Taken Omeprazole 40 mg PO QDAY 01/16/20 11/16/20 11/16/20 08:31 40 mg atenoloL [Tenormin] 25 mg PO DAILY 01/16/20 11/16/20 11/15/20 25 mg Sitagliptin Phosphate [Januvia] 100 mg PO DAILY 11/16/20 11/16/20 11/15/20 100 mg Previous Rx's Medication Instructions Recorded Last Taken Type Aspirin EC [Ecotrin] 325 mg PO QDAY #30 tablet 01/20/20 11/15/20 Rx 325 mg AtorvaSTATin [Lipitor] 40 mg PO QHS #30 tablet 01/20/20 11/15/20 Rx 40 mg Hydroxyurea 500 mg PO Q12H #60 capsule 01/20/20 11/15/20 Rx 500 mg Allergies Allergy/AdvReac Type Severity Reaction Status Date / Time No Known Allergies Allergy Verified 10/26/17 06:30 ED Review of Systems ROS: Stated complaint: NEED BLOOD TRANSFUSION Other details as noted in HPI ED Past Medical Hx - Past Medical History Previous Medical History?: Yes Hx Hypertension: Yes Hx Diabetes: Yes Hx GERD: Yes Hx Arthritis: Yes Additional medical history: High cholesterol, Mitral valve prolapse - Surgical History Past Surgical History?: Yes Hx Cholecystectomy: Yes Additional Surgical History: Rt heel - Social History Smoking Status: Never Smoker Substance Use Type: None - Medications Home Medications: Home Medications Medication Instructions Recorded Confirmed Last Taken Type Omeprazole 40 mg PO QDAY 01/16/20 11/16/20 11/16/20 08:31 History 40 mg atenoloL [Tenormin] 25 mg PO DAILY 01/16/20 11/16/20 11/15/20 History 25 mg Aspirin EC [Ecotrin] 325 mg PO QDAY #30 tablet 01/20/20 11/16/20 11/15/20 Rx 325 mg AtorvaSTATin [Lipitor] 40 mg PO QHS #30 tablet 01/20/20 11/16/20 11/15/20 Rx 40 mg Hydroxyurea 500 mg PO Q12H #60 capsule 01/20/20 11/16/20 11/15/20 Rx 500 mg Sitagliptin Phosphate [Januvia] 100 mg PO DAILY 11/16/20 11/16/20 11/15/20 History 100 mg ED Physical Exam - General Limitations: No Limitations ED Course Vital Signs 12/04/21 12/04/21 12/04/21 01:26 10:39 10:40 Temperature 97.8 F 98.3 F 98 F Pulse Rate 109 H 81 80 Respiratory 22 16 16 Rate Blood Pressure 133/79 121/50 105/42 Blood Pressure [Right] O2 Sat by Pulse 97 99 100 Oximetry 12/04/21 12/04/21 12/04/21 10:42 10:45 10:46 Temperature 98.1 F Pulse Rate 81 Respiratory 16 Rate Blood Pressure 105/67 105/46 Blood Pressure [Right] O2 Sat by Pulse 100 100 99 Oximetry 12/04/21 12/04/21 12/04/21 10:50 10:55 11:00 Temperature 98.1 F 97.8 F Pulse Rate 80 79 Respiratory 16 16 Rate Blood Pressure 104/59 110/69 128/63 Blood Pressure [Right] O2 Sat by Pulse 100 100 99 Oximetry 12/04/21 12/04/21 12/04/21 11:16 11:25 12:39 Temperature 98.9 F Pulse Rate 82 84 Respiratory 16 16 Rate Blood Pressure 110/61 124/79 Blood Pressure 124/43 [Right] O2 Sat by Pulse 96 100 100 Oximetry ED Medical Decision Making - Lab Data Result diagrams: 12/04/21 02:35 12/04/21 02:35 Critical care attestation.: If time is entered above; I have spent that time in minutes in the direct care of this critically ill patient, excluding procedure time. ED Disposition Clinical Impression: Anemia Qualifiers: Anemia type: unspecified type Qualified Code(s): D64.9 - Anemia, unspecified Disposition: 01 HOME / SELF CARE / HOMELESS Is pt being admited?: No Does the pt Need Aspirin: No Condition: Stable Instructions: Blood Transfusion, Adult, Care After Additional Instructions: Follow-up with your primary care provider as planned. Return to the emergency department as needed. Referrals: ASHLEY PRESCOTT MD [Primary Care Provider] - 3-5 Days Time of Disposition: 12:47
== END 2021-12-04 12:56 | disposition home or self-care (01) ==
LOC: ED 01:22
DX: D64.9 Anemia, unspecified (principal); I10 Essential (primary) hypertension; E11.9 Type 2 diabetes mellitus without complications; K21.9 Gastro-esophageal reflux disease without esophagitis; M19.90 Unspecified osteoarthritis, unspecified site; R79.1 Abnormal coagulation profile; E78.00 Pure hypercholesterolemia, unspecified; Z90.49 Acquired absence of other specified parts of digestive tract; Z79.82 Long term (current) use of aspirin; Z79.899 Other long term (current) drug therapy
CPT/HCPCS: 36415; 36430; 80053; 85007; 85025; 85610; 86850; 86900; 86901; 86920; 99283; J7040; P9016

== ENCOUNTER 2021-12-09 06:18 | Outpatient (CLI) | payer BC ==
[2021-12-09 07:26] LABS: Hematocrit 25.8 % (30.3-42.9); Hemoglobin 8.3 gm/dl (10.1-14.3); Mean Corpuscular HGB Conc 32 % (30-34); Mean Corpuscular Volume 101 fl (79-97); Platelet Count 122 K/mm3 (140-440); Red Blood Count 2.57 M/mm3 (3.65-5.03)
[2021-12-09 07:28] LABS: Red Cell Distribution Width 30.8 % (13.2-15.2)
[2021-12-09 07:35] LABS: INR 2.05 (0.87-1.13)
== END 2021-12-09 06:19 | disposition home or self-care (01) ==
LOC: LAB 06:18
PROVIDERS: ATTEND Internal Medicine Hematology & Oncology
DX: D47.3 Essential (hemorrhagic) thrombocythemia (principal); Z79.01 Long term (current) use of anticoagulants
CPT/HCPCS: 36415; 85027; 85610

== ENCOUNTER 2021-12-16 06:30 | Outpatient (CLI) | payer BC ==
[2021-12-16 07:35] LABS: Hematocrit 23.5 % (30.3-42.9); Mean Corpuscular HGB Conc 34 % (30-34); Mean Corpuscular Volume 101 fl (79-97); Platelet Count 364 K/mm3 (140-440); Red Blood Count 2.33 M/mm3 (3.65-5.03)
[2021-12-16 07:44] LABS: Red Cell Distribution Width 30.3 % (13.2-15.2)
[2021-12-16 07:45] LABS: INR 3.04 (0.87-1.13)
== END 2021-12-16 06:31 | disposition home or self-care (01) ==
LOC: LAB 06:30
PROVIDERS: ATTEND Internal Medicine Hematology & Oncology
DX: D47.3 Essential (hemorrhagic) thrombocythemia (principal); Z79.01 Long term (current) use of anticoagulants
CPT/HCPCS: 36415; 85027; 85610

== ENCOUNTER 2021-12-23 06:39 | Outpatient (CLI) | payer BC ==
[2021-12-23 07:32] LABS: INR 2.64 (0.87-1.13)
[2021-12-23 08:35] LABS: Hematocrit 25.2 % (30.3-42.9); Mean Corpuscular HGB Conc 32 % (30-34); Mean Corpuscular Volume 103 fl (79-97); Platelet Count 245 K/mm3 (140-440); Red Blood Count 2.44 M/mm3 (3.65-5.03)
[2021-12-23 08:36] LABS: Red Cell Distribution Width 29.9 % (13.2-15.2)
== END 2021-12-23 06:40 | disposition home or self-care (01) ==
LOC: LAB 06:39
PROVIDERS: ATTEND Internal Medicine Hematology & Oncology
DX: I10 Essential (primary) hypertension (principal); D47.3 Essential (hemorrhagic) thrombocythemia; Z79.01 Long term (current) use of anticoagulants
CPT/HCPCS: 36415; 85027; 85610

== ENCOUNTER 2021-12-31 06:26 | Outpatient (CLI) | payer BC ==
[2021-12-31 07:18] LABS: Hematocrit 23.6 % (30.3-42.9); Hemoglobin 7.9 gm/dl (10.1-14.3); Mean Corpuscular HGB Conc 33 % (30-34); Mean Corpuscular Volume 104 fl (79-97); Platelet Count 130 K/mm3 (140-440); Red Blood Count 2.27 M/mm3 (3.65-5.03)
[2021-12-31 07:21] LABS: Red Cell Distribution Width 31.9 % (13.2-15.2)
[2021-12-31 07:27] LABS: INR 1.87 (0.87-1.13)
== END 2021-12-31 06:27 | disposition home or self-care (01) ==
LOC: LAB 06:26
PROVIDERS: ATTEND Internal Medicine Hematology & Oncology
DX: D47.3 Essential (hemorrhagic) thrombocythemia (principal); Z79.01 Long term (current) use of anticoagulants
CPT/HCPCS: 36415; 85027; 85610

== ENCOUNTER 2022-01-06 06:45 | Outpatient (CLI) | payer BC ==
[2022-01-06 07:17] LABS: Hemoglobin 8.4 gm/dl (10.1-14.3); Mean Corpuscular HGB Conc 32 % (30-34); Mean Corpuscular Volume 106 fl (79-97); Platelet Count 452 K/mm3 (140-440); Red Blood Count 2.46 M/mm3 (3.65-5.03)
[2022-01-06 07:30] LABS: INR 2.31 (0.87-1.13)
[2022-01-06 07:33] LABS: Red Cell Distribution Width 31.1 % (13.2-15.2)
== END 2022-01-06 06:46 | disposition home or self-care (01) ==
LOC: LAB 06:45
PROVIDERS: ATTEND Internal Medicine Hematology & Oncology
DX: D47.3 Essential (hemorrhagic) thrombocythemia (principal); Z79.01 Long term (current) use of anticoagulants
CPT/HCPCS: 36415; 85027; 85610